=== PATIENT | male | born 1980 | race African-American/Black ===

== ENCOUNTER → 2018-07-13 | Outpatient (REF) | payer OTHER ==
[2018-07-13 13:13] LABS: BLOOD UREA NITROGEN 9 MG/DL (7-18); CPK CREATINE PHOSPHOKINASE 210 U/L (39-308); CREATININE FOR GFR 1.03 MG/DL (0.70-1.30); GLOMERULAR FILTRATION RATE > 60.0 (>60); RHEUMATOID FACTOR QUANT < 10.0 IU/ML (<15.0)
[2018-07-13 13:18] LABS: VITAMIN B12 LEVEL 838 PG/ML
[2018-07-14 12:00] LABS: ALBUMIN % 63.7 % (55.8-66.1); ALPHA-1-GLOBULIN % 3.3 % (2.9-4.9); ALPHA-2-GLOBULINS % 7.6 % (7.1-11.8); BETA-1-GLOBULINS % 5.9 % (4.7-7.2); BETA-2-GLOBULINS % 4.5 % (3.2-6.5)
[2018-07-14 12:01] LABS: ALBUMIN 4.46 GM/DL (3.29-5.55); ALPHA-1-GLOBULINS 0.23 GM/DL (0.17-0.41); ALPHA-2-GLOBULINS 0.53 GM/DL (0.42-0.99); BETA-1-GLOBULINS 0.41 GM/DL (0.28-0.60); BETA-2-GLOBULINS 0.32 GM/DL (0.19-0.55); GAMMA GLOBULINS 1.05 GM/DL (0.65-1.58)
[2018-07-20 10:12] LABS: ANCA-ATYPICAL <1:20 titer (Neg:<1:20); ANGIOTENSIN 1 CONVERTING ENZYM 45 U/L (14-82); ANTINUCLEAR ANTIBODIES DIRECT Negative (Negative); CERULOPLASMIN 16.1 mg/dL (16.0-31.0); COPPER PLASMA 79 ug/dL (72-166); CYTOPLASMIC NEUTROP AB ANCA-C <1:20 titer (Neg:<1:20); LEAD BLOOD ADULT 1 ug/dL (0-4); Lyme Disease IgG/IgM Antibodie <0.91 ISR (0.00-0.90); Lyme Disease IgM Ab Quantitati <0.80 index (0.00-0.79); MERCURY LEVEL 1.5 ug/L (0.0-14.9); PERINUCLEAR AB ANCA-P <1:20 titer (Neg:<1:20); VITAMIN B1 LEVEL WHOLE BLOOD 97.1 nmol/L (66.5-200.0); VITAMIN B6,PYRIDOXAL PHOSPHATE 8.8 ug/L (5.3-46.7); VITAMIN E(ALPHA TOCOPHEROL) 9.4 mg/L (5.9-19.4); VITAMIN E(GAMMA TOCOPHEROL) 0.6 mg/L (0.7-4.9)
== END ==
LOC: M LABNEURO 10:57
PROVIDERS: ATTEND Psychiatry & Neurology Neurology
DX: R53.81 Other malaise (principal)

== ENCOUNTER 2019-08-29 14:56 | Emergency (ER) | payer OTHER ==
[~2019-08-29] VITALS: Ht 165.1 cm; Wt 65.7 kg
[2019-08-29 16:02] LABS: HEMATOCRIT 49.1 % (42.0-52.0); HEMOGLOBIN 16.1 g/dl (13.5-17.5); MEAN CORPUSCULAR HEMOGLOBIN 28.9 pg (27.0-33.0); MEAN CORPUSCULAR HGB CONC 32.8 g/dl (32.0-36.5); PLATELET COUNT, AUTOMATED 221 10^3/uL (150-450); RED BLOOD COUNT 5.58 10^6/uL (4.30-6.10); WHITE BLOOD COUNT 3.9 10^3/uL (4.0-10.0)
[2019-08-29 16:51] LABS: BLOOD UREA NITROGEN 13 MG/DL (7-18); C REACTIVE PROTEIN QUANTITATIV < 0.30 MG/DL (0.00-0.30); CALCIUM LEVEL 9.3 MG/DL (8.5-10.1); CARBON DIOXIDE LEVEL 32 MEQ/L (21-32); CHLORIDE LEVEL 106 MEQ/L (98-107); CREATININE FOR GFR 1.12 MG/DL (0.70-1.30); GLOMERULAR FILTRATION RATE > 60.0 (>60); GLUCOSE, FASTING 76 MG/DL (70-100); POTASSIUM SERUM 4.6 MEQ/L (3.5-5.1); SODIUM LEVEL 142 MEQ/L (136-145)
[2019-08-29 17:00] LABS: ERYTHROCYTE SEDIMENTATION RATE 1 mm/hr (0-15)
[2019-08-29 20:15] LABS: ALBUMIN 4.4 GM/DL (3.2-5.2); ALT/SGPT 36 U/L (12-78); BILIRUBIN,DIRECT 0.2 MG/DL (0.0-0.2); BILIRUBIN,TOTAL 0.5 MG/DL (0.2-1.0); LIPASE 161 U/L (73-393); TOTAL PROTEIN 7.7 GM/DL (6.4-8.2)
[2019-08-29] MEDS ORDERED: IBUPROFEN 600 MG TAB PO ONE (20:45)
--- NOTE | 2019-08-29 21:58 | REPVR ---
PROCEDURE INFORMATION: Exam: MR Lumbar Spine Without Contrast. Exam date and time: 08/29/2019 9:23 PM Age: 39 years old Clinical indication: Weakness; Additional info: Weakness, numbness groin/buttock TECHNIQUE: Imaging protocol: Multiplanar magnetic resonance images of the lumbar spine without intravenous contrast. COMPARISON: No relevant prior studies available. FINDINGS: Vertebrae: Unremarkable. Spinal cord: Normal signal. No cord compression. L1-L2: No significant disc disease. No significant spinal canal stenosis. No neural foraminal stenosis. L2-L3: No significant disc disease. No significant spinal canal stenosis. Facet DJD causes mild foraminal stenosis L3-L4: No significant disc disease. No significant spinal canal stenosis. Facet DJD causes mild foraminal stenosis. L4-L5: No significant disc disease. No significant spinal canal stenosis. Facet DJD causes mild foraminal stenosis. L5-S1: No significant disc disease. No significant spinal canal stenosis. Facet DJD causes mild foraminal stenosis. Soft tissues: Unremarkable. IMPRESSION: 1. 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 2. No disc herniation or spinal stenosis. Electronically signed by: Blair Toure On 08/29/2019 21:58:22 PM
[2019-08-29 22:18] VITALS: BP 130/85
== END 2019-08-29 22:51 | disposition home or self-care (01) ==
LOC: M ED 14:56
DX: M51.37 Other intervertebral disc degeneration, lumbosacral region (principal)

== ENCOUNTER → 2019-10-25 | Outpatient (REF) | payer OTHER ==
[2019-10-25 13:00] LABS: PLATELET COUNT, AUTOMATED 194 10^3/uL (150-450)
[2019-10-25 13:16] LABS: INR 1.11; PROTHROMBIN TIME 14.1 SECONDS (11.8-14.0)
[2019-10-25 13:17] LABS: PARTIAL THROMBOPLASTIN TIME 33.2 SECONDS (25.0-38.4)
[2019-10-25 13:20] LABS: COLLAGEN EPINEPHRINE 186 SECONDS (74-162)
[2019-10-25 13:43] LABS: COLLAGEN ADP 130 SECONDS (56-103)
== END ==
LOC: M LABDRAW1 11:03
PROVIDERS: ATTEND Physical Medicine & Rehabilitation
DX: M51.37 Other intervertebral disc degeneration, lumbosacral region (principal)

== ENCOUNTER 2020-08-03 05:28 | Emergency (ER) | payer OTHER ==
[~2020-08-03] VITALS: Ht 167.6 cm; Wt 65.6 kg
--- OUTSIDE RECORDS SUMMARY | 2020-08-03 05:34 | CCD ---
Author Organization Unknown Address [address] [place] [address] Phone [phone] Care Team Providers Care Digital Production Operator Name Role Phone [facility] 3 [phone] Allergies Code Code System Name Reaction Severity Status Onset NKDA Medications Name Status Start Date Stop Date cyclobenzaprine Active Not available gabapentin 300 mg capsule Take 1 capsule 3 times a day by oral route. Active Not available Hydrocodone Active Not available Zanaflex 4 mg tablet Take 1 tablet 3 times a day by oral route as needed. Active Not available Notes: patient takes medication as neede d for migraines but does not recall the name. Problems None recorded. 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 [employer]: [address] [place] [address] 12/31/2019 COVID-19 RNA (SARS-CoV-2), QL, five roll refiner batch mixer-PCR, 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 [employer]: [address] [place] [address] Past Encounters 07/22/2020 Cervical Post-laminectomy Syndrome; Cervical Radiculopathy; Displacement of Cervical Intervertebral Disc without Myelopathy; Degeneration of Cervical Intervertebral Disc; Cervical Spondylosis without Myelopathy; Degeneration of Lumbar Intervertebral Disc; Degeneration of Lumbosacral Intervertebral Disc; Displacement of Lumbar Intervertebral Disc without Myelopathy; Intervertebral Disc Disorder; Spondylosis without Myelopathy; Lumbosacral Spondylosis without Myelopathy; Lumbar Radiculopathy; Hip Pain; Inflammation of Sacroiliac Joint; Myofascial Pain; Piriformis Syndrome Ayaka Isaac ROBOTIC TECHNICIAN: [id number] [facility], [place] [address], Ph. 05/05/2020 Cervical Post-laminectomy Syndrome; Cervical Radiculopathy; Displacement of Cervical Intervertebral Disc without Myelopathy; Degeneration of Cervical Intervertebral Disc; Cervical Spondylosis without Myelopathy; Degeneration of Lumbar Intervertebral Disc; Degeneration of Lumbosacral Intervertebral Disc; Displacement of Lumbar Intervertebral Disc without Myelopathy; Intervertebral Disc Disorder; Spondylosis without Myelopathy; Lumbosacral Spondylosis without Myelopathy; Lumbar Radiculopathy; Hip Pain; Inflammation of Sacroiliac Joint; Myofascial Pain; Piriformis Syndrome Ayaka Isaac NP: [id number] [facility], [place] [address], Ph. 04/16/2020 Inflammation of Sacroiliac Joint; Cervical Post-laminectomy Syndrome; Cervical Radiculopathy; Displacement of Cervical Intervertebral Disc without Myelopathy; Degeneration of Cervical Intervertebral Disc; Cervical Spondylosis without Myelopathy; Degeneration of Lumbar Intervertebral Disc; Degeneration of Lumbosacral Intervertebral Disc; Displacement of Lumbar Intervertebral Disc without Myelopathy; Intervertebral Disc Disorder; Spondylosis without Myelopathy; Lumbosacral Spondylosis without Myelopathy; Lumbar Radiculopathy; Hip Pain Boo Escalante MD: [id number] [facility], [facility] [place] [address], Ph. 04/09/2020 Cervical Post-laminectomy Syndrome; Cervical Radiculopathy; Displacement of Cervical Intervertebral Disc without Myelopathy; Degeneration of Cervical Intervertebral Disc; Cervical Spondylosis without Myelopathy; Degeneration of Lumbar Intervertebral Disc; Degeneration of Lumbosacral Intervertebral Disc; Displacement of Lumbar Intervertebral Disc without Myelopathy; Intervertebral Disc Disorder; Spondylosis without Myelopathy; Lumbosacral Spondylosis without Myelopathy; Lumbar Radiculopathy; Hip Pain; Inflammation of Sacroiliac Joint Ayaka Isaac, ROBOTIC TECHNICIAN: [id number] [facility], [facility] [place] [address], Ph. 03/12/2020 Inflammation of Sacroiliac Joint; Cervical Post-laminectomy Syndrome; Cervical Radiculopathy; Displacement of Cervical Intervertebral Disc without Myelopathy; Degeneration of Cervical Intervertebral Disc; Cervical Spondylosis without Myelopathy; Degeneration of Lumbar Intervertebral Disc; Degeneration of Lumbosacral Intervertebral Disc; Displacement of Lumbar Intervertebral Disc without Myelopathy; Intervertebral Disc Disorder; Spondylosis without Myelopathy; Lumbosacral Spondylosis without Myelopathy; Lumbar Radiculopathy; Hip Pain Boo Escalante MD: [id number] [address], [place] [address], Ph. 03/06/2020 Cervical Post-laminectomy Syndrome; Cervical Radiculopathy; Displacement of Cervical Intervertebral Disc without Myelopathy; Degeneration of Cervical Intervertebral Disc; Cervical Spondylosis without Myelopathy; Degeneration of Lumbar Intervertebral Disc; Degeneration of Lumbosacral Intervertebral Disc; Displacement of Lumbar Intervertebral Disc without Myelopathy; Intervertebral Disc Disorder; Spondylosis without Myelopathy; Lumbosacral Spondylosis without Myelopathy; Lumbar Radiculopathy; Hip Pain; Inflammation of Sacroiliac Joint Ayaka Isaac, ROBOTIC TECHNICIAN: [id number] [facility], [facility] [place] [address], Ph. 02/18/2020 Myofascial Pain; Cervical Post-laminectomy Syndrome; Cervical Radiculopathy; Displacement of Cervical Intervertebral Disc without Myelopathy; Degeneration of Cervical Intervertebral Disc; Cervical Spondylosis without Myelopathy; Degeneration of Lumbar Intervertebral Disc; Degeneration of Lumbosacral Intervertebral Disc; Displacement of Lumbar Intervertebral Disc without Myelopathy; Intervertebral Disc Disorder; Spondylosis without Myelopathy; Lumbosacral Spondylosis without Myelopathy; Lumbar Radiculopathy; Hip Pain Boo Escalante MD: [id number] [facility], [place] [address], Ph. 02/07/2020 Cervical Post-laminectomy Syndrome; Cervical Radiculopathy; Displacement of Cervical Intervertebral Disc without Myelopathy; Degeneration of Cervical Intervertebral Disc; Cervical Spondylosis without Myelopathy; Degeneration of Lumbar Intervertebral Disc; Degeneration of Lumbosacral Intervertebral Disc; Displacement of Lumbar Intervertebral Disc without Myelopathy; Intervertebral Disc Disorder; Spondylosis without Myelopathy; Lumbosacral Spondylosis without Myelopathy; Lumbar Radiculopathy; Hip Pain Ayaka Isaac, ROBOTIC TECHNICIAN: [id number] [address], Ph. 02/01/2020 Cervical Post-laminectomy Syndrome; Cervical Radiculopathy; Displacement of Cervical Intervertebral Disc without Myelopathy; Degeneration of Cervical Intervertebral Disc; Cervical Spondylosis without Myelopathy; Degeneration of Lumbar Intervertebral Disc; Degeneration of Lumbosacral Intervertebral Disc; Displacement of Lumbar Intervertebral Disc without Myelopathy; Intervertebral Disc Disorder; Spondylosis without Myelopathy; Lumbosacral Spondylosis without Myelopathy; Lumbar Radiculopathy Ayaka Isaac ROBOTIC TECHNICIAN: [id number] [address], Ph. 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 01/11/2020 Pre-surgery Testing; Viral Screening Boo Escalante MD: [id number] [address], Ph. [phone] 01/03/2020 Lumbar Radiculopathy; Degeneration of Lumbar Intervertebral Disc; Degeneration of Lumbosacral Intervertebral Disc; Displacement of Lumbar Intervertebral Disc without Myelopathy; Intervertebral Disc Disorder; Spondylosis without Myelopathy; Lumbosacral Spondylosis without Myelopathy; Cervical Post- laminectomy Syndrome; Cervical Radiculopathy; Displacement of Cervical Intervertebral Disc without Myelopathy; Degeneration of Cervical Intervertebral Disc; Cervical Spondylosis without Myelopathy; Displacement of Thoracic Intervertebral Disc without Myelopathy; Thoracic Spondylosis without Myelopathy Boo Escalante MD: [address] [address], [place] [address], Ph. 12/31/2019 Pre-surgery Testing; Viral Screening Boo Escalante MD: [address] [address], [facility] [place] [address], Ph. [phone] 12/06/2019 Lumbar Radiculopathy; Degeneration of Lumbar Intervertebral Disc; Degeneration of Lumbosacral Intervertebral Disc; Displacement of Lumbar Intervertebral Disc without Myelopathy; Intervertebral Disc Disorder; Spondylosis without Myelopathy; Lumbosacral Spondylosis without Myelopathy; Cervical Post- laminectomy Syndrome; Cervical Radiculopathy; Displacement of Cervical Intervertebral Disc without Myelopathy; Degeneration of Cervical Intervertebral Disc; Cervical Spondylosis without Myelopathy Boo Escalante MD: [address] [address], [place] [address], Ph. 12/03/2019 Pre-surgery Testing Boo Escalante MD: [id number] [address], [facility] [place] [address], Ph. 11/19/2019 Cervical Post-laminectomy Syndrome; Cervical Radiculopathy; Displacement of Cervical Intervertebral Disc without Myelopathy; Degeneration of Cervical Intervertebral Disc; Cervical Spondylosis without Myelopathy; Degeneration of Lumbar Intervertebral Disc; Degeneration of Lumbosacral Intervertebral Disc; Displacement of Lumbar Intervertebral Disc without Myelopathy; Intervertebral Disc Disorder; Spondylosis without Myelopathy; Lumbosacral Spondylosis without Myelopathy; Lumbar Radiculopathy Ayaka Isaac NP: [address] [address], [facility] [place] [address], Ph. 10/02/2019 Cervical Post-laminectomy Syndrome; Cervical Radiculopathy; Displacement of Cervical Intervertebral Disc without Myelopathy; Degeneration of Cervical Intervertebral Disc; Cervical Spondylosis without Myelopathy; Degeneration of Lumbar Intervertebral Disc; Degeneration of Lumbosacral Intervertebral Disc; Displacement of Lumbar Intervertebral Disc without Myelopathy; Intervertebral Disc Disorder; Spondylosis without Myelopathy; Lumbosacral Spondylosis without Myelopathy; Lumbar Radiculopathy Boo Escalante MD: [id number] [facility] [address], [place] [address], Ph. Social History Tobacco Smoking Status Never Smoker Vaccine List None recorded. Plan of Care Reminders Provider Appointments None recorded. Lab None recorded. Referral None recorded. Procedures None recorded. Surgeries None recorded. Imaging None recorded. Vitals 03/06/2020 01:00PM FOLLOW-UP Height Blood Pressure 5 ft 6 in 124/88 mm[Hg] 02/07/2020 01:45PM FOLLOW-UP Height Weight BMI Blood Pressure 5 ft 6 in 141 lbs 22.8 kg/m2 123/80 mm[Hg] 10/02/2019 04:00PM NEW PATIENT Height Weight BMI Blood Pressure 5 ft 6 in 141 lbs 22.8 kg/m2 120/79 mm[Hg]
--- OUTSIDE RECORDS SUMMARY | 2020-08-03 05:34 | CCD ---
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 [employer]: [address] [place] [address] 12/31/2019 COVID-19 RNA (SARS-CoV-2), QL, 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 [employer]: [address] [place] [address] 12/03/2019 COVID-19 RNA (SARS-CoV-2), QL, 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 [employer]: [address] [place] [address] Past Encounters 07/31/2020 Piriformis Syndrome; Cervical Post-laminectomy Syndrome; Cervical Radiculopathy; Displacement of Cervical Intervertebral Disc without Myelopathy; Degeneration of Cervical Intervertebral Disc; Cervical Spondylosis without Myelopathy; Degeneration of Lumbar Intervertebral Disc; Degeneration of Lumbosacral Intervertebral Disc; Displacement of Lumbar Intervertebral Disc without Myelopathy; Intervertebral Disc Disorder; Spondylosis without Myelopathy; Lumbosacral Spondylosis without Myelopathy; Lumbar Radiculopathy; Hip Pain; Inflammation of Sacroiliac Joint; Myofascial Pain Boo Escalante MD: [id number] [address], [place] [address], Ph. 07/22/2020 Cervical Post-laminectomy Syndrome; Cervical Radiculopathy; Displacement [...] Myofascial Pain; Piriformis Syndrome Ayaka Isaac NP: [id number] [address], Ph. 05/05/2020 Cervical Post-laminectomy Syndrome; Cervical Radiculopathy; [...] Myofascial Pain; Piriformis Syndrome Ayaka Isaac NP: [id number] [address], [place] [address], Ph. 04/16/2020 Inflammation of Sacroiliac Joint; Cervical Post-laminectomy Syndrome; Cervical Radiculopathy; Displacement of Cervical Intervertebral Disc without Myelopathy; Degeneration of Cervical Intervertebral Disc; Cervical Spondylosis without Myelopathy; Degeneration of Lumbar Intervertebral Disc; Degeneration of Lumbosacral Intervertebral Disc; Displacement of Lumbar Intervertebral Disc without Myelopathy; Intervertebral Disc Disorder; Spondylosis without Myelopathy; Lumbosacral Spondylosis without Myelopathy; Lumbar Radiculopathy; Hip Pain Boo Escalante MD: [address] [address], [place] [address], Ph. 04/09/2020 Cervical Post-laminectomy Syndrome; Cervical Radiculopathy; Displacement of Cervical Intervertebral Disc without Myelopathy; Degeneration of Cervical Intervertebral Disc; Cervical Spondylosis without Myelopathy; Degeneration of Lumbar Intervertebral Disc; Degeneration of Lumbosacral Intervertebral Disc; Displacement of Lumbar Intervertebral Disc without Myelopathy; Intervertebral Disc Disorder; Spondylosis without Myelopathy; Lumbosacral Spondylosis without Myelopathy; Lumbar Radiculopathy; Hip Pain; Inflammation of Sacroiliac Joint Ayaka Isaac MID LEVEL JAVA DEVELOPER: [id number] [address], Ph. 03/12/2020 Inflammation of Sacroiliac Joint; Cervical Post-laminectomy Syndrome; Cervical Radiculopathy; Displacement of Cervical Intervertebral Disc without Myelopathy; Degeneration of Cervical Intervertebral Disc; Cervical Spondylosis without Myelopathy; Degeneration of Lumbar Intervertebral Disc; Degeneration of Lumbosacral Intervertebral Disc; Displacement of Lumbar Intervertebral Disc without Myelopathy; Intervertebral Disc Disorder; Spondylosis without Myelopathy; Lumbosacral Spondylosis without Myelopathy; Lumbar Radiculopathy; Hip Pain Boo Escalante MD: [id number] [address], [facility] [place] [address], Ph. 03/06/2020 Cervical Post-laminectomy Syndrome; Cervical Radiculopathy; Displacement of Cervical Intervertebral Disc without Myelopathy; Degeneration of Cervical Intervertebral Disc; Cervical Spondylosis without Myelopathy; Degeneration of Lumbar Intervertebral Disc; Degeneration of Lumbosacral Intervertebral Disc; Displacement of Lumbar Intervertebral Disc without Myelopathy; Intervertebral Disc Disorder; Spondylosis without Myelopathy; Lumbosacral Spondylosis without Myelopathy; Lumbar Radiculopathy; Hip Pain; Inflammation of Sacroiliac Joint Ayaka Isaac MID LEVEL JAVA DEVELOPER: [id number] [address], Ph. 02/18/2020 Myofascial Pain; Cervical Post-laminectomy Syndrome; Cervical Radiculopathy; Displacement of Cervical Intervertebral Disc without Myelopathy; Degeneration of Cervical Intervertebral Disc; Cervical Spondylosis without Myelopathy; Degeneration of Lumbar Intervertebral Disc; Degeneration of Lumbosacral Intervertebral Disc; Displacement of Lumbar Intervertebral Disc without Myelopathy; Intervertebral Disc Disorder; Spondylosis without Myelopathy; Lumbosacral Spondylosis without Myelopathy; Lumbar Radiculopathy; Hip Pain Boo Escalante MD: [address] [address], [place] [address], Ph. 02/07/2020 Cervical Post-laminectomy Syndrome; Cervical Radiculopathy; Displacement of Cervical Intervertebral Disc without Myelopathy; Degeneration of Cervical Intervertebral Disc; Cervical Spondylosis without Myelopathy; Degeneration of Lumbar Intervertebral Disc; Degeneration of Lumbosacral Intervertebral Disc; Displacement of Lumbar Intervertebral Disc without Myelopathy; Intervertebral Disc Disorder; Spondylosis without Myelopathy; Lumbosacral Spondylosis without Myelopathy; Lumbar Radiculopathy; Hip Pain Ayaka Isaac NP: [id number] [address], [place] [address], Ph. 02/01/2020 Cervical Post-laminectomy Syndrome; Cervical Radiculopathy; Displacement of Cervical Intervertebral Disc without Myelopathy; Degeneration of Cervical Intervertebral Disc; Cervical Spondylosis without Myelopathy; Degeneration of Lumbar Intervertebral Disc; Degeneration of Lumbosacral Intervertebral Disc; Displacement of Lumbar Intervertebral Disc without Myelopathy; Intervertebral Disc Disorder; Spondylosis without Myelopathy; Lumbosacral Spondylosis without Myelopathy; Lumbar Radiculopathy Ayaka Isaac NP: [address] [address], [place] [address], Ph. 01/16/2020 Lumbar Radiculopathy; Degeneration of Lumbar [...] Thoracic Spondylosis without Myelopathy Boo Escalante MD: [address] [facility], [place] [address], Ph. 01/11/2020 Pre-surgery Testing; Viral Screening Boo Escalante MD: [address] [facility], [facility] [place] [address], Ph. [phone] 01/03/2020 Lumbar Radiculopathy; Degeneration of Lumbar Intervertebral [...] Thoracic Spondylosis without Myelopathy Boo Escalante MD: [address] [address], [place] [address], Ph. 12/31/2019 Pre-surgery Testing; Viral Screening Boo Escalante MD: [address] [address], [facility] [place] [address], Ph. [phone] 12/06/2019 Lumbar Radiculopathy; Degeneration of Lumbar Intervertebral Disc; Degeneration of Lumbosacral Intervertebral Disc; Displacement of Lumbar Intervertebral Disc without Myelopathy; Intervertebral Disc Disorder; Spondylosis without Myelopathy; Lumbosacral Spondylosis without Myelopathy; Cervical Post- laminectomy Syndrome; Cervical Radiculopathy; Displacement of Cervical Intervertebral Disc without Myelopathy; Degeneration of Cervical Intervertebral Disc; Cervical Spondylosis without Myelopathy Boo Escalante MD: [address] [facility], [facility] [place] [address], Ph. 12/03/2019 Pre-surgery Testing Boo Escalante MD: [address] [address], [facility] [place] [address], Ph. 11/19/2019 Cervical Post-laminectomy Syndrome; Cervical Radiculopathy; Displacement of Cervical Intervertebral Disc without Myelopathy; Degeneration of Cervical Intervertebral Disc; Cervical Spondylosis without Myelopathy; Degeneration of Lumbar Intervertebral Disc; Degeneration of Lumbosacral Intervertebral Disc; Displacement of Lumbar Intervertebral Disc without Myelopathy; Intervertebral Disc Disorder; Spondylosis without Myelopathy; Lumbosacral Spondylosis without Myelopathy; Lumbar Radiculopathy Ayaka Isaac NP: [id number] [facility], [facility] [place] [address], Ph. 10/02/2019 Cervical Post-laminectomy Syndrome; Cervical Radiculopathy; Displacement of Cervical Intervertebral Disc without Myelopathy; Degeneration of Cervical Intervertebral Disc; Cervical Spondylosis without Myelopathy; Degeneration of Lumbar Intervertebral Disc; Degeneration of Lumbosacral Intervertebral Disc; Displacement of Lumbar Intervertebral Disc without Myelopathy; Intervertebral Disc Disorder; Spondylosis without Myelopathy; Lumbosacral Spondylosis without Myelopathy; Lumbar Radiculopathy Boo Escalante MD: [address] [facility], [facility] [place] [address], Ph. Social History Tobacco Smoking Status Never [...]
--- OUTSIDE RECORDS SUMMARY | 2020-08-03 05:34 | CCD ---
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 Name Role Phone [facility] 3 [phone] Allergies Code Code System Name Reaction [...] Performed by 12/18/2019 Neck Surgery Information not av lable Neck Surgery Notes: 2016 at [place] Information not available Shoulder Surgery Notes: 2012 at [place] Information not available 02/07/2020 MRI, Pelvis, W/o Contrast [facility] [address] [place] [address] (Work Place) Results Lab Results Date Name Specimen Result Interpretation Description Value Range Status Address 01/11/2020 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 [employer]: [address] [place] [address] Past Encounters 05/05/2020 Cervical Post-laminectomy Syndrome; Cervical Radiculopathy; Displacement of Cervical Intervertebral Disc without Myelopathy; Degeneration of Cervical Intervertebral Disc; Cervical Spondylosis without Myelopathy; Degeneration of Lumbar Intervertebral Disc; Degeneration of Lumbosacral Intervertebral Disc; Displacement of Lumbar Intervertebral Disc without Myelopathy; Intervertebral Disc Disorder; Spondylosis without Myelopathy; Lumbosacral Spondylosis without Myelopathy; Lumbar Radiculopathy; Hip Pain; Inflammation of Sacroiliac Joint; Myofascial Pain; Piriformis Syndrome Ayaka Moreaucheryl Marlin MANUFACTURING TEACHER: [id number] [address], [place] [address], Ph. 04/16/2020 Inflammation of Sacroiliac Joint; Cervical Post-laminectomy Syndrome; Cervical Radiculopathy; Displacement of Cervical Intervertebral Disc without Myelopathy; Degeneration of Cervical Intervertebral Disc; Cervical Spondylosis without Myelopathy; Degeneration of Lumbar Intervertebral Disc; Degeneration of Lumbosacral Intervertebral Disc; Displacement of Lumbar Intervertebral Disc without Myelopathy; Intervertebral Disc Disorder; Spondylosis without Myelopathy; Lumbosacral Spondylosis without Myelopathy; Lumbar Radiculopathy; Hip Pain Boo Escalante MD: [id number] [address], Ph. 04/09/2020 Cervical Post-laminectomy Syndrome; Cervical Radiculopathy; Displacement of Cervical Intervertebral Disc without Myelopathy; Degeneration of Cervical Intervertebral Disc; Cervical Spondylosis without Myelopathy; Degeneration of Lumbar Intervertebral Disc; Degeneration of Lumbosacral Intervertebral Disc; Displacement of Lumbar Intervertebral Disc without Myelopathy; Intervertebral Disc Disorder; Spondylosis without Myelopathy; Lumbosacral Spondylosis without Myelopathy; Lumbar Radiculopathy; Hip Pain; Inflammation of Sacroiliac Joint Ayaka Isaac MANUFACTURING TEACHER: [id number] [address], Ph. 03/12/2020 Inflammation of Sacroiliac Joint; Cervical Post-laminectomy Syndrome; Cervical Radiculopathy; Displacement of Cervical Intervertebral Disc without Myelopathy; Degeneration of Cervical Intervertebral Disc; Cervical Spondylosis without Myelopathy; Degeneration of Lumbar Intervertebral Disc; Degeneration of Lumbosacral Intervertebral Disc; Displacement of Lumbar Intervertebral Disc without Myelopathy; Intervertebral Disc Disorder; Spondylosis without Myelopathy; Lumbosacral Spondylosis without Myelopathy; Lumbar Radiculopathy; Hip Pain Boo Escalante MD: [id number] [address], [place] [address], Ph. 03/06/2020 Cervical Post-laminectomy Syndrome; Cervical Radiculopathy; Displacement of Cervical Intervertebral Disc without Myelopathy; Degeneration of Cervical Intervertebral Disc; Cervical Spondylosis without Myelopathy; Degeneration of Lumbar Intervertebral Disc; Degeneration of Lumbosacral Intervertebral Disc; Displacement of Lumbar Intervertebral Disc without Myelopathy; Intervertebral Disc Disorder; Spondylosis without Myelopathy; Lumbosacral Spondylosis without Myelopathy; Lumbar Radiculopathy; Hip Pain; Inflammation of Sacroiliac Joint Ayaka Isaac MANUFACTURING TEACHER: [id number] [address], [place] [address], Ph. 02/18/2020 Myofascial Pain; Cervical Post-laminectomy Syndrome; Cervical Radiculopathy; Displacement of Cervical Intervertebral Disc without Myelopathy; Degeneration of Cervical Intervertebral Disc; Cervical Spondylosis without Myelopathy; Degeneration of Lumbar Intervertebral Disc; Degeneration of Lumbosacral Intervertebral Disc; Displacement of Lumbar Intervertebral Disc without Myelopathy; Intervertebral Disc Disorder; Spondylosis without Myelopathy; Lumbosacral Spondylosis without Myelopathy; Lumbar Radiculopathy; Hip Pain Boo Escalante MD: [id number] [address], [place] [address], Ph. 02/07/2020 Cervical Post-laminectomy Syndrome; Cervical Radiculopathy; Displacement of Cervical Intervertebral Disc without Myelopathy; Degeneration of Cervical Intervertebral Disc; Cervical Spondylosis without Myelopathy; Degeneration of Lumbar Intervertebral Disc; Degeneration of Lumbosacral Intervertebral Disc; Displacement of Lumbar Intervertebral Disc without Myelopathy; Intervertebral Disc Disorder; Spondylosis without Myelopathy; Lumbosacral Spondylosis without Myelopathy; Lumbar Radiculopathy; Hip Pain Ayaka Isaac MANUFACTURING TEACHER: [id number] [address], [place] [address], Ph. 02/01/2020 Cervical Post-laminectomy Syndrome; Cervical Radiculopathy; Displacement of Cervical Intervertebral Disc without Myelopathy; Degeneration of Cervical Intervertebral Disc; Cervical Spondylosis without Myelopathy; Degeneration of Lumbar Intervertebral Disc; Degeneration of Lumbosacral Intervertebral Disc; Displacement of Lumbar Intervertebral Disc without Myelopathy; Intervertebral Disc Disorder; Spondylosis without Myelopathy; Lumbosacral Spondylosis without Myelopathy; Lumbar Radiculopathy Ayaka Isaac NP: [id number] [facility] [address], [place] [address], Ph. 01/16/2020 Lumbar Radiculopathy; Degeneration of Lumbar [...] Thoracic Spondylosis without Myelopathy Boo Escalante MD: [id number] [address], [place] [address], Ph. 01/11/2020 Pre-surgery Testing; Viral Screening Boo Escalante MD: [id number] [address], [place] [address], Ph. [phone] 01/03/2020 Lumbar Radiculopathy; Degeneration of Lumbar Intervertebral [...] Thoracic Spondylosis without Myelopathy Boo Escalante MD: [id number] [address], [place] [address], Ph. 12/31/2019 Pre-surgery Testing; Viral Screening Boo Escalante MD: [id number] [address], [place] [address], Ph. [phone] 12/06/2019 Lumbar Radiculopathy; Degeneration of Lumbar Intervertebral Disc; Degeneration of Lumbosacral Intervertebral Disc; Displacement of Lumbar Intervertebral Disc without Myelopathy; Intervertebral Disc Disorder; Spondylosis without Myelopathy; Lumbosacral Spondylosis without Myelopathy; Cervical Post- laminectomy Syndrome; Cervical Radiculopathy; Displacement of Cervical Intervertebral Disc without Myelopathy; Degeneration of Cervical Intervertebral Disc; Cervical Spondylosis without Myelopathy Boo Escalante MD: [id number] [facility] [address], [place] [address], Ph. 12/03/2019 Pre-surgery Testing Boo Escalante MD: [id number] [facility] [address], [place] [address], Ph. 11/19/2019 Cervical Post-laminectomy Syndrome; Cervical Radiculopathy; Displacement of Cervical Intervertebral Disc without Myelopathy; Degeneration of Cervical Intervertebral Disc; Cervical Spondylosis without Myelopathy; Degeneration of Lumbar Intervertebral Disc; Degeneration of Lumbosacral Intervertebral Disc; Displacement of Lumbar Intervertebral Disc without Myelopathy; Intervertebral Disc Disorder; Spondylosis without Myelopathy; Lumbosacral Spondylosis without Myelopathy; Lumbar Radiculopathy Ayaka Isaac NP: [address], [facility] [address], [place] [address], Ph. 10/02/2019 Cervical Post-laminectomy Syndrome; Cervical Radiculopathy; Displacement of Cervical Intervertebral Disc without Myelopathy; Degeneration of Cervical Intervertebral Disc; Cervical Spondylosis without Myelopathy; Degeneration of Lumbar Intervertebral Disc; Degeneration of Lumbosacral Intervertebral Disc; Displacement of Lumbar Intervertebral Disc without Myelopathy; Intervertebral Disc Disorder; Spondylosis without Myelopathy; Lumbosacral Spondylosis without Myelopathy; Lumbar Radiculopathy Boo Escalante MD: [id number] [facility] [address], [place] [address], Ph. Social History Tobacco Smoking Status Never [...]
[2020-08-03] MEDS ORDERED: [UNRECOGNIZED DRUG - REMARK] (05:37)
--- OUTSIDE RECORDS SUMMARY | 2020-08-03 05:37 | CCD ---
Author Author [facility] Organization [facility] Address Unknown Phone Unavailable Care Team Providers Care Student Services Advisor Name Role Phone Tone MATA MD Unavailable Unavailable Tone MATA MD Unavailable Unavailable Tone MATA MD Unavailable Unavailable Tone MATA MD Unavailable Unavailable Tone MATA MD Unavailable Unavailable Tone MATA MD Unavailable Unavailable Tone MATA MD Unavailable Unavailable Tone MATA MD Unavailable Unavailable Tone MATA MD Unavailable Unavailable Tone MATA MD Unavailable Unavailable Tone MATA MD Unavailable Unavailable Tone MATA MD Unavailable Unavailable Tone MATA MD Unavailable Unavailable Tone MATA MD Unavailable Unavailable Tone MATA MD Unavailable Unavailable Tone MATA MD Unavailable Unavailable Tone MATA MD Unavailable Unavailable Tone MATA MD Unavailable Unavailable Tone MATA MD Unavailable Unavailable Tone MATA MD Unavailable Unavailable Tone MATA MD Unavailable Unavailable Tone MATA MD Unavailable Unavailable Tone MATA MD Unavailable Unavailable Tone MATA MD Unavailable Unavailable Tone MATA MD Unavailable Unavailable Tone MATA MD Unavailable Unavailable Tone MATA MD Unavailable Unavailable Tone MATA MD Unavailable Unavailable Tone MATA MD Unavailable Unavailable Tone MATA MD Unavailable Unavailable Tone MATA MD Unavailable Unavailable Tone MATA MD Unavailable Unavailable Tone MATA MD Unavailable Unavailable Tone MATA MD Unavailable Unavailable Tone MATA MD Unavailable Unavailable Tone MATA MD Unavailable Unavailable Tone MATA MD Unavailable Unavailable Tone MATA MD Unavailable Unavailable Tone MATA MD Unavailable Unavailable Tone MATA MD Unavailable Unavailable Tone MATA MD Unavailable Unavailable Tone MATA MD Unavailable Unavailable Tone MATA MD Unavailable Unavailable Tone MATA MD Unavailable Unavailable Tone MATA MD Unavailable Unavailable Tone MATA MD Unavailable Unavailable Tone MATA MD Unavailable Unavailable Tone MATA MD Unavailable Unavailable Tone MATA MD Unavailable Unavailable Tone MATA MD Unavailable Unavailable Tone MATA MD Unavailable Unavailable Tone MATA MD Unavailable Unavailable Tone MATA MD Unavailable Unavailable Tone MATA MD Unavailable Unavailable Tone MATA MD Unavailable Unavailable Tone MATA MD Unavailable Unavailable Tone MATA MD Unavailable Unavailable Tone MATA MD Unavailable Unavailable Tone MATA MD Unavailable Unavailable Tone MATA MD Unavailable Unavailable Tone MATA MD Unavailable Unavailable Tone MATA MD Unavailable Unavailable Tone MATA MD Unavailable Unavailable Tone MATA MD Unavailable Unavailable Tone MATA MD Unavailable Unavailable Tone MATA MD Unavailable Unavailable Tone MATA MD Unavailable Unavailable Tone MATA MD Unavailable Unavailable Tone MATA MD Unavailable Unavailable Tone MATA MD Unavailable Unavailable Tone MATA MD Unavailable Unavailable Tone MATA MD Unavailable Unavailable Tone MATA MD Unavailable Unavailable Tone MATA MD Unavailable Unavailable Tone MATA MD Unavailable Unavailable Tone MATA MD Unavailable Unavailable Tone MATA MD Unavailable Unavailable Tone MATA MD Unavailable Unavailable Tone MATA MD Unavailable Unavailable Tone MATA MD Unavailable Unavailable Tone MATA MD Unavailable Unavailable Tone MATA MD Unavailable Unavailable Tone MATA MD Unavailable Unavailable Tone MATA MD Unavailable Unavailable Tone MATA MD Unavailable Unavailable Tone MATA MD Unavailable Unavailable Tone MATA MD Unavailable Unavailable Tone MATA MD Unavailable Unavailable Tone MATA MD Unavailable Unavailable Tone MATA MD Unavailable Unavailable Tone MATA MD Unavailable Unavailable Tone MATA MD Unavailable Unavailable Tone MATA MD Unavailable Unavailable Tone MATA MD Unavailable Unavailable Tone MATA MD Unavailable Unavailable Tone MATA MD Unavailable Unavailable Tone MATA MD Unavailable Unavailable Tone MATA MD Unavailable Unavailable Tone MATA MD Unavailable Unavailable Tone MATA MD Unavailable Unavailable Tone MATA MD Unavailable Unavailable Tone MATA MD Unavailable Unavailable Tone MATA MD Unavailable Unavailable Tone MATA MD Unavailable Unavailable Tone MATA MD Unavailable Unavailable Tone MATA MD Unavailable Unavailable Tone MATA MD Unavailable Unavailable Tone MATA MD Unavailable Unavailable Tone MATA MD Unavailable Unavailable Tone MATA MD Unavailable Unavailable Tone MATA MD Unavailable Unavailable Tone MATA MD Unavailable Unavailable Tone MATA MD Unavailable Unavailable Tone MATA MD Unavailable Unavailable Tone MATA MD Unavailable Unavailable Tone MATA MD Unavailable Unavailable Tone MATA MD Unavailable Unavailable Tone MATA MD Unavailable Unavailable Tone MATA MD Unavailable Unavailable Tone MATA MD Unavailable Unavailable Tone MATA MD Unavailable Unavailable Tone MATA MD Unavailable Unavailable Tone MATA MD Unavailable Unavailable Tone MATA MD Unavailable Unavailable Tone MATA MD Unavailable Unavailable Tone MATA MD Unavailable Unavailable Tone MATA MD Unavailable Unavailable Tone MATA MD Unavailable Unavailable Tone MATA MD Unavailable Unavailable Tone MATA MD Unavailable Unavailable Tone MATA MD Unavailable Unavailable Tone MATA MD Unavailable Unavailable Tone MATA MD Unavailable Unavailable Tone MATA MD Unavailable Unavailable Tone MATA MD Unavailable Unavailable Tone MATA MD Unavailable Unavailable Tone MATA MD Unavailable Unavailable Tone MATA MD Unavailable Unavailable Tone MATA MD Unavailable Unavailable Tone MATA MD Unavailable Unavailable Tone MATA MD Unavailable Unavailable Tone MATA MD Unavailable Unavailable Tone MATA MD Unavailable Unavailable Tone MATA MD Unavailable Unavailable Tone MATA MD Unavailable Unavailable Tone MATA MD Unavailable Unavailable Tone MATA MD Unavailable Unavailable Tone MATA MD Unavailable Unavailable Tone MATA MD Unavailable Unavailable Tone MATA MD Unavailable Unavailable Tone MATA MD Unavailable Unavailable Tone MATA MD Unavailable Unavailable Tone MATA MD Unavailable Unavailable Tone MATA MD Unavailable Unavailable Tone MATA MD Unavailable Unavailable Tone MATA MD Unavailable Unavailable Tone MATA MD Unavailable Unavailable Tone MATA MD Unavailable Unavailable Tone MATA MD Unavailable Unavailable Tone MATA MD Unavailable Unavailable Tone MATA MD Unavailable Unavailable Tone MATA MD Unavailable Unavailable Tone MATA MD Unavailable Unavailable Tone MATA MD Unavailable Unavailable Tone MATA MD Unavailable Unavailable Tone MATA MD Unavailable Unavailable Tone MATA MD Unavailable Unavailable Tone MATA MD Unavailable Unavailable Tone MATA MD Unavailable Unavailable Tone MATA MD Unavailable Unavailable Tone MATA MD Unavailable Unavailable Tone MATA MD Unavailable Unavailable Tone MATA MD Unavailable Unavailable Tone MATA MD Unavailable Unavailable Tone MATA MD Unavailable Unavailable Tone MATA MD Unavailable Unavailable Tone MATA MD Unavailable Unavailable Tone MATA MD Unavailable Unavailable Tone MATA MD Unavailable Unavailable Tone MATA MD Unavailable Unavailable Tone MATA MD Unavailable Unavailable Tone MATA MD Unavailable Unavailable Tone MATA MD Unavailable Unavailable Tone MATA MD Unavailable Unavailable Tone MATA MD Unavailable Unavailable Tone MATA MD Unavailable Unavailable Tone MATA MD Unavailable Unavailable Tone MATA MD Unavailable Unavailable Tone MATA MD Unavailable Unavailable Tone MATA MD Unavailable Unavailable Tone MAAT MD Unavailable Unavailable Tone MATA MD Unavailable Unavailable HANIFIN, M RYAN PA Unavailable Unavailable HANIFIN, M YRAN PA Unavailable Unavailable HANIFIN, M RYAN PA Unavailable Unavailable HANIFIN, M RYAN PA Unavailable Unavailable HANIFIN, M RYAN PA Unavailable Unavailable HANIFIN, M RYAN PA Unavailable Unavailable HANIFIN, M RYAN PA Unavailable Unavailable HANIFIN, M RYAN PA Unavailable Unavailable HANIFIN, M RYAN PA Unavailable Unavailable HANIFIN, M RYAN PA Unavailable Unavailable HANIFIN, M RYAN PA Unavailable Unavailable HANIFIN, M RYAN PA Unavailable Unavailable HANIFIN, M RYAN PA Unavailable Unavailable HANIFIN, M RYAN PA Unavailable Unavailable HANIFIN, M RYAN PA Unavailable Unavailable HANIFIN, M RYAN PA Unavailable Unavailable HANIFIN, M RYAN PA Unavailable Unavailable HANIFIN, M RYAN PA Unavailable Unavailable HANIFIN, M RYAN PA Unavailable Unavailable HANIFIN, M RYAN PA Unavailable Unavailable HANIFIN, M RYAN PA Unavailable Unavailable HANIFIN, M RYAN PA Unavailable Unavailable HANIFIN, M RYAN PA Unavailable Unavailable HANIFIN, M RYAN PA Unavailable Unavailable HANIFIN, M RYAN PA Unavailable Unavailable HANIFIN, M RYAN PA Unavailable Unavailable HANIFIN, M RYAN PA Unavailable Unavailable HANIFIN, M RYAN PA Unavailable Unavailable HANIFIN, M RYAN PA Unavailable Unavailable HANIFIN, M RYAN PA Unavailable Unavailable HANIFIN, M RYAN PA Unavailable Unavailable HANIFIN, M RYAN PA Unavailable Unavailable HANIFIN, M RYAN PA Unavailable Unavailable HANIFIN, M RYAN PA Unavailable Unavailable HANIFIN, M RYAN PA Unavailable Unavailable HANIFIN, M RYAN PA Unavailable Unavailable HANIFIN, M RYAN PA Unavailable Unavailable HANIFIN, M RYAN PA Unavailable Unavailable HANIFIN, M RYAN PA Unavailable Unavailable HANIFIN, M RYAN PA Unavailable Unavailable HANIFIN, M RYAN PA Unavailable Unavailable HANIFIN, M RYAN PA Unavailable Unavailable HANIFIN, M RYAN PA Unavailable Unavailable HANIFIN, M RYAN PA Unavailable Unavailable HANIFIN, M RYAN PA Unavailable Unavailable HANIFIN, M RYAN PA Unavailable Unavailable HANIFIN, M RYAN PA Unavailable Unavailable HANIFIN, M RYAN PA Unavailable Unavailable HANIFIN, M RYAN PA Unavailable Unavailable HANIFIN, M RYAN PA Unavailable Unavailable HANIFIN, M RYAN PA Unavailable Unavailable Jumalon, M Ayaka BORING MACHINE OPERATOR PRODUCTION Unavailable Unavailable Jumalon, M Ayaka BORING MACHINE OPERATOR PRODUCTION Unavailable Unavailable Jumalon, M Ayaka BORING MACHINE OPERATOR PRODUCTION Unavailable Unavailable Jumalon, M Ayaak BORING MACHINE OPERATOR PRODUCTION Unavailable Unavailable Jumalon, M Ayaka BORING MACHINE OPERATOR PRODUCTION Unavailable Unavailable Jumalon, M Ayaka BORING MACHINE OPERATOR PRODUCTION Unavailable Unavailable Jumalon, M Ayaka BORING MACHINE OPERATOR PRODUCTION Unavailable Unavailable Jumalon, M Ayaka BORING MACHINE OPERATOR PRODUCTION Unavailable Unavailable Jumalon, M Ayaka BORING MACHINE OPERATOR PRODUCTION Unavailable Unavailable Jumalon, M Aykaa BORING MACHINE OPERATOR PRODUCTION Unavailable Unavailable Jumalon, M Ayaka BORING MACHINE OPERATOR PRODUCTION Unavailable Unavailable Jumalon, M Ayaka BORING MACHINE OPERATOR PRODUCTION Unavailable Unavailable Jumalon, M Ayaka BORING MACHINE OPERATOR PRODUCTION Unavailable Unavailable Jumalon, M Ayaka BORING MACHINE OPERATOR PRODUCTION Unavailable Unavailable Jumalon, M Ayaka BORING MACHINE OPERATOR PRODUCTION Unavailable Unavailable Jumalon, M Ayaka BORING MACHINE OPERATOR PRODUCTION Unavailable Unavailable Jumalon, M Ayaka BORING MACHINE OPERATOR PRODUCTION Unavailable Unavailable Jumalon, M Ayaka BORING MACHINE OPERATOR PRODUCTION Unavailable Unavailable Jumalon, M Ayaka BORING MACHINE OPERATOR PRODUCTION Unavailable Unavailable Jumalon, M Ayaka BORING MACHINE OPERATOR PRODUCTION Unavailable Unavailable Jumalon, M Ayaka BORING MACHINE OPERATOR PRODUCTION Unavailable Unavailable Jumalon, M Ayaka BORING MACHINE OPERATOR PRODUCTION Unavailable Unavailable Jumalon, M Ayaka BORING MACHINE OPERATOR PRODUCTION Unavailable Unavailable Jumalon, M Ayaka BORING MACHINE OPERATOR PRODUCTION Unavailable Unavailable Jumalon, M Ayaka BORING MACHINE OPERATOR PRODUCTION Unavailable Unavailable Jumalon, M Ayaka BORING MACHINE OPERATOR PRODUCTION Unavailable Unavailable Jumalon, M Ayaka BORING MACHINE OPERATOR PRODUCTION Unavailable Unavailable Jumalon, M Ayaka BORING MACHINE OPERATOR PRODUCTION Unavailable Unavailable Jostin FERNÁNDEZ DO Unavailable Unavailable Tone BARAJAS MD Unavailable Unavailable Tone BARAJAS MD Unavailable Unavailable Tone BARAJAS MD Unavailable Unavailable Tone BARAJAS MD Unavailable Unavailable Tone BARAJAS MD Unavailable Unavailable Tone BARAJAS MD Unavailable Unavailable Tone BARAJAS MD Unavailable Unavailable Tone BARAJAS MD Unavailable Unavailable Tone BARAJAS MD Unavailable Unavailable Tone BARAJAS MD Unavailable Unavailable Tone BARAJAS MD Unavailable Unavailable Tone BARAJAS MD Unavailable Unavailable Tone BARAJAS MD Unavailable Unavailable Tone BARAJAS MD Unavailable Unavailable Tone BARAJAS MD Unavailable Unavailable Tone BARAJAS MD Unavailable Unavailable Tone BARAJAS MD Unavailable Unavailable Tone BARAJAS MD Unavailable Unavailable Tone BARAJAS MD Unavailable Unavailable Tone BARAJAS MD Unavailable Unavailable Tone BARAJAS MD Unavailable Unavailable Tone BARAJAS MD Unavailable Unavailable Tone BARAJAS MD Unavailable Unavailable Tone BARAJAS MD Unavailable Unavailable Tone BARAJAS MD Unavailable Unavailable Tone BARAJAS MD Unavailable Unavailable Tone BARAJAS MD Unavailable Unavailable Tone BARAJAS MD Unavailable Unavailable Tone BARAJAS MD Unavailable Unavailable Tone BARAJAS MD Unavailable Unavailable Tone BARAJAS MD Unavailable Unavailable Tone BARAJAS MD Unavailable Unavailable Tone BARAJAS MD Unavailable Unavailable Tone BARAJAS MD Unavailable Unavailable Tone BARAJAS MD Unavailable Unavailable Tone BARAJAS MD Unavailable Unavailable Tone BARAJAS MD Unavailable Unavailable Tone BARAJAS MD Unavailable Unavailable Tone BARAJAS MD Unavailable Unavailable Tone BARAJAS MD Unavailable Unavailable Tone BARAJAS MD Unavailable Unavailable Tone BARAJAS MD Unavailable Unavailable Tone BARAJAS MD Unavailable Unavailable Tone BARAJAS MD Unavailable Unavailable Tone BARAJAS MD Unavailable Unavailable Tone BARAJAS MD Unavailable Unavailable Tone BARAJAS MD Unavailable Unavailable Tone BARAJAS MD Unavailable Unavailable Tone BARAJAS MD Unavailable Unavailable Tone BARAJAS MD Unavailable Unavailable Tone BARAJAS MD Unavailable Unavailable Tone BARAJAS MD Unavailable Unavailable Tone BARAJAS MD Unavailable Unavailable Tone BARAJAS MD Unavailable Unavailable Tone BARAJAS MD Unavailable Unavailable Tone BARAJAS MD Unavailable Unavailable Tone BARAJAS MD Unavailable Unavailable Tone BARAJAS MD Unavailable Unavailable Tone BARAJAS MD Unavailable Unavailable Tone BARAJAS MD Unavailable Unavailable Tone BARAJAS MD Unavailable Unavailable Tone BARAJAS MD Unavailable Unavailable Tone BARAJAS MD Unavailable Unavailable Tone BARAJAS MD Unavailable Unavailable Jerardo, Ramona Tristan MD Unavailable Unavailable Jerardo, Ramona Tristan MD Unavailable Unavailable Jerardo, Ramona Tristan MD Unavailable Unavailable Jerardo, Ramona Tristan MD Unavailable Unavailable Jerardo, Ramona Tristan MD Unavailable Unavailable Jerardo, Ramona Tristan MD Unavailable Unavailable Jerardo, Ramona Tristan MD Unavailable Unavailable Jerardo, Ramona Tristan MD Unavailable Unavailable Jerardo, Ramona Tristan MD Unavailable Unavailable Jerardo, Ramona Tristan MD Unavailable Unavailable Jerardo, Ramona Tristan MD Unavailable Unavailable Jerardo, Ramona Tristan MD Unavailable Unavailable Jerardo, Ramona Tristan MD Unavailable Unavailable Jerardo, Ramona rTistan MD Unavailable Unavailable Jerardo, Ramona Tristan MD Unavailable Unavailable Jerardo, Ramona Tristan MD Unavailable Unavailable Jerardo, Ramona Tristan MD Unavailable Unavailable Jerardo, Ramona Tristan MD Unavailable Unavailable Jerardo, Ramona Tristan MD Unavailable Unavailable Jerardo, Ramona Tristan MD Unavailable Unavailable Jerardo, A Kun MD Unavailable Unavailable Jerardo, A Kun MD Unavailable Unavailable Jerardo, A Kun MD Unavailable Unavailable Jerardo, A Kun MD Unavailable Unavailable Jerardo, A Kun MD Unavailable Unavailable Jerardo, A Kun MD Unavailable Unavailable Jerardo, A Kun MD Unavailable Unavailable Jerardo, A Kun MD Unavailable Unavailable Jerardo, A Kun MD Unavailable Unavailable Jerardo, A Kun MD Unavailable Unavailable Jerardo, A Kun MD Unavailable Unavailable Jerardo, A Kun MD Unavailable Unavailable Jerardo, A Kun MD Unavailable Unavailable Jerardo, A Kun MD Unavailable Unavailable Jerardo, A Kun MD Unavailable Unavailable Jerardo, A Kun MD Unavailable Unavailable Jerardo, A Kun MD Unavailable Unavailable Jerardo, A Kun MD Unavailable Unavailable Jerardo, A Kun MD Unavailable Unavailable Jerardo, A Kun MD Unavailable Unavailable Jerardo, A Kun MD Unavailable Unavailable Jerardo, A Kun MD Unavailable Unavailable Jerardo, A Kun MD Unavailable Unavailable Jerardo, A Kun MD Unavailable Unavailable Jerardo, A Kun MD Unavailable Unavailable Jerardo, A Kun MD Unavailable Unavailable Jerardo, A Kun MD Unavailable Unavailable Jerardo, A Kun MD Unavailable Unavailable Jerardo, A Kun MD Unavailable Unavailable Jerardo, A Kun MD Unavailable Unavailable Jerardo, A Kun MD Unavailable Unavailable Jerardo, A Kun MD Unavailable Unavailable Jerardo, A Kun MD Unavailable Unavailable Jerardo, A Kun MD Unavailable Unavailable Jerardo, A Kun MD Unavailable Unavailable Jerardo, A Kun MD Unavailable Unavailable Jerardo, A Kun MD Unavailable Unavailable Jerardo, A Kun MD Unavailable Unavailable Jerardo, A Kun MD Unavailable Unavailable Jerardo, A Kun MD Unavailable Unavailable Jerardo, A Kun MD Unavailable Unavailable Jerardo, A Kun MD Unavailable Unavailable Jerardo, A Kun MD Unavailable Unavailable Jerardo, A Kun MD Unavailable Unavailable Jerardo, A Kun MD Unavailable Unavailable Jerardo, A Kun MD Unavailable Unavailable Jerardo, A Kun MD Unavailable Unavailable Jerardo, A Kun MD Unavailable Unavailable Jerardo, A Kun MD Unavailable Unavailable Jerardo, A Kun MD Unavailable Unavailable Jerardo, A Kun MD Unavailable Unavailable GAONA, @ MARCELA Unavailable Unavailable KINGSTON, L MICHAEL Unavailable Unavailable KINGSTON, L MICHAEL Unavailable Unavailable KINGSTON, L MICHAEL Unavailable Unavailable KINGSTON, L MICHAEL Unavailable Unavailable Martinez, Jared Unavailable Unavailable Martinez, Jared Unavailable Unavailable Martinez, Jared Unavailable Unavailable Martinez, Jared Unavailable Unavailable Martinez, Jared Unavailable Unavailable Martinez, Jared Unavailable Unavailable Martinez, Jared Unavailable Unavailable Martinez, Jared Unavailable Unavailable Martinez, Jared Unavailable Unavailable Martinez, Jared Unavailable Unavailable Martinez, Jared Unavailable Unavailable Martinez, Jared Unavailable Unavailable Martinez, Jared Unavailable Unavailable Martinez, Jared Unavailable Unavailable Martinez, Jared Unavailable Unavailable Martinez, Jared Unavailable Unavailable Martinez, Jared Unavailable Unavailable Martinez, Jared Unavailable Unavailable Martinez, Jared Unavailable Unavailable Martinez, Jared Unavailable Unavailable Martinez, Jared Unavailable Unavailable Martinez, Jared Unavailable Unavailable Martinez, Jared Unavailable Unavailable Martinez, Jared Unavailable Unavailable Martinez, Jared Unavailable Unavailable Martinez, Jared Unavailable Unavailable Martinez, Jared Unavailable Unavailable Martinez, Jared Unavailable Unavailable Martinez, Jared Unavailable Unavailable Martinez, Jared Unavailable Unavailable Martinez, Jared Unavailable Unavailable Martinez, Jared Unavailable Unavailable Martinez, Jared Unavailable Unavailable Martinez, Jared Unavailable Unavailable Martinez, Jared Unavailable Unavailable Martinez, Jared Unavailable Unavailable Martinez, Jared Unavailable Unavailable Martinez, Jared Unavailable Unavailable Martinez, Jared Unavailable Unavailable Martinez, Jared Unavailable Unavailable Martinez, Jared Unavailable Unavailable Martinez, Jared Unavailable Unavailable Martinez, Jared Unavailable Unavailable Martinez, Jared Unavailable Unavailable Jerardo, A Kun FAN Unavailable Unavailable Jerardo, A Kun FAN Unavailable Unavailable Jerardo, Ramona Tristan MD Unavailable Unavailable Jerardo, Ramona Tristan MD Unavailable Unavailable Jerardo, Ramona Tristan MD Unavailable Unavailable Jerardo, Ramona Tristan MD Unavailable Unavailable Jerardo, Ramona Tristan MD Unavailable Unavailable Jerardo, Ramona Tristan MD Unavailable Unavailable Jerardo, Ramona Tristan MD Unavailable Unavailable Jerardo, Ramona Tristan MD Unavailable Unavailable Jerardo, Ramona Tristan MD Unavailable Unavailable Jerardo, Ramona Tristan MD Unavailable Unavailable Jerardo, Ramona Tristan MD Unavailable Unavailable Jerardo, Ramona Tristan MD Unavailable Unavailable Jerardo, Ramona Tristan MD Unavailable Unavailable Jerardo, Ramona Tristan MD Unavailable Unavailable Jerardo, Ramona Tristan MD Unavailable Unavailable Jerardo, Ramona Tristan MD Unavailable Unavailable Jerardo, Ramona Tristan MD Unavailable Unavailable Jerardo, Ramona Tristan MD Unavailable Unavailable Jerardo, Ramona Tristan MD Unavailable Unavailable Jerardo, A Kun FAN Unavailable Unavailable Jerardo, A Kun FAN Unavailable Unavailable Jerardo, Ramona Tristan MD Unavailable Unavailable Jerardo, Ramona Tristan MD Unavailable Unavailable Jerardo, Ramona Tristan MD Unavailable Unavailable Jerardo, Ramona Tristan MD Unavailable Unavailable Jerardo, Ramona Tristan MD Unavailable Unavailable Jerardo, Ramona Tristan MD Unavailable Unavailable Jerardo, Ramona Tristan MD Unavailable Unavailable Jerardo, Ramona Tristan MD Unavailable Unavailable Jerardo, Ramona Tristan MD Unavailable Unavailable Jerardo, Ramona Tristan MD Unavailable Unavailable Jerardo, A Kun Unavailable Unavailable Jerardo, A Kun Unavailable Unavailable Jerardo, A Kun Unavailable Unavailable Jerardo, A Kun Unavailable Unavailable Jerardo, A Kun Unavailable Unavailable Jerardo, A Kun Unavailable Unavailable Jerardo, A Kun Unavailable Unavailable Jerardo, A Kun Unavailable Unavailable Jerardo, A Kun Unavailable Unavailable Jerardo, A Kun Unavailable Unavailable Jerardo, A Kun Unavailable Unavailable Jerardo, A Knu Unavailable Unavailable Jerardo, A Kun Unavailable Unavailable Jerardo, A Kun Unavailable Unavailable Jerardo, A Kun Unavailable Unavailable Jerardo, A Kun Unavailable Unavailable Jerardo, A Kun Unavailable Unavailable Jerardo, A Kun Unavailable Unavailable Jerardo, A Kun Unavailable Unavailable Jerardo, A Kun FAN Unavailable Unavailable Jerardo, A Kun FAN Unavailable Unavailable Jerardo, A Kun Unavailable Unavailable Jerardo, A Kun Unavailable Unavailable Jerardo, A Kun FAN Unavailable Unavailable Jerardo, A Kun FAN Unavailable Unavailable Jerardo, A Kun FAN Unavailable Unavailable Jerardo, A Kun FAN Unavailable Unavailable Jerardo, A Kun FAN Unavailable Unavailable Jerardo, A Kun FAN Unavailable Unavailable Jerardo, A Kun FAN Unavailable Unavailable Jerardo, A Kun FAN Unavailable Unavailable Jerardo, A Kun FAN Unavailable Unavailable Jerardo, A Kun FAN Unavailable Unavailable Jerardo, A Kun FAN Unavailable Unavailable Jerardo, A Kun FAN Unavailable Unavailable Jerardo, A Kun FAN Unavailable Unavailable Jerardo, A Kun FAN Unavailable Unavailable Jerardo, A Kun FAN Unavailable Unavailable Donta Escalante MD Unavailable Unavailable Donta Escalante MD Unavailable Unavailable Donta Escalante MD Unavailable Unavailable Donta Escalante MD Unavailable Unavailable Donta Escalante MD Unavailable Unavailable Donta Escalante MD Unavailable Unavailable Donta Escalante MD Unavailable Unavailable Donta Escalante MD Unavailable Unavailable Donta Escalante MD Unavailable Unavailable Donta Escalante MD Unavailable Unavailable Donta Escalante MD Unavailable Unavailable Donta Escalante MD Unavailable Unavailable Donta Escalante MD Unavailable Unavailable Donta Escalante MD Unavailable Unavailable Donta Escalante MD Unavailable Unavailable BollaDonta MD Unavailable Unavailable BollaDonta MD Unavailable Unavailable Bolla, S Boo FAN Unavailable Unavailable Bolla, Donta Haddad MD Unavailable Unavailable Bolla, S Boo FAN Unavailable Unavailable Bolla, S Boo FAN Unavailable Unavailable Bolla, S Boo FAN Unavailable Unavailable Bolla, S Boo FAN Unavailable Unavailable Bolla, S Boo FAN Unavailable Unavailable Bolla, S Boo FAN Unavailable Unavailable Bolla, Donta Haddad MD Unavailable Unavailable Bolla, S Boo FAN Unavailable Unavailable Bolla, Donta Haddad MD Unavailable Unavailable Bolla, S Boo FAN Unavailable Unavailable Bolla, S Boo FAN Unavailable Unavailable Bolla, S Boo FAN Unavailable Unavailable Bolla, S Boo FAN Unavailable Unavailable Bolla, S Boo FAN Unavailable Unavailable Bolla, Donta Haddad MD Unavailable Unavailable Bolla, Donta Haddad MD Unavailable Unavailable Bolla, Donta Haddad MD Unavailable Unavailable Bolla, Donta Haddad MD Unavailable Unavailable Bolla, Donta Haddad MD Unavailable Unavailable Bolla, Donta Haddad MD Unavailable Unavailable Bolla, Donta Haddad MD Unavailable Unavailable Bolla, Donta Haddad MD Unavailable Unavailable BollaDonta MD Unavailable Unavailable Bolla, Donta Haddad MD Unavailable Unavailable BolDonta bowden MD Unavailable Unavailable Bolla, Donta Haddad MD Unavailable Unavailable Boldennise, Donta Haddad MD Unavailable Unavailable BollaDonta MD Unavailable Unavailable BolDonta bowden MD Unavailable Unavailable Tone MATA MD Unavailable Unavailable Tone MATA MD Unavailable Unavailable Tone AMTA MD Unavailable Unavailable Tone MATA MD Unavailable Unavailable Tone MATA MD Unavailable Unavailable Tone MATA MD Unavailable Unavailable Tone MATA MD Unavailable Unavailable Tone MATA MD Unavailable Unavailable Tone MATA MD Unavailable Unavailable Tone MATA MD Unavailable Unavailable Tone MATA MD Unavailable Unavailable Tone MATA MD Unavailable Unavailable Tone MATA MD Unavailable Unavailable Tone MATA MD Unavailable Unavailable Tone MATA MD Unavailable Unavailable Tone MATA MD Unavailable Unavailable Tone MATA MD Unavailable Unavailable Tone MATA MD Unavailable Unavailable Tone MATA MD Unavailable Unavailable Tone MATA MD Unavailable Unavailable Tone MATA MD Unavailable Unavailable Tone MATA MD Unavailable Unavailable Tone MATA MD Unavailable Unavailable Tone MATA MD Unavailable Unavailable Tone MATA MD Unavailable Unavailable Tone MATA MD Unavailable Unavailable Tone MATA MD Unavailable Unavailable Tone MATA MD Unavailable Unavailable Tone MATA MD Unavailable Unavailable Tone MATA MD Unavailable Unavailable Tone MATA MD Unavailable Unavailable Tone MATA MD Unavailable Unavailable Tone MATA MD Unavailable Unavailable Tone MATA MD Unavailable Unavailable Tone MATA MD Unavailable Unavailable Tone MATA MD Unavailable Unavailable Tone MATA MD Unavailable Unavailable Tone MATA MD Unavailable Unavailable Tone MATA MD Unavailable Unavailable Tone MATA MD Unavailable Unavailable Tone MATA MD Unavailable Unavailable Tone MATA MD Unavailable Unavailable Tone MATA MD Unavailable Unavailable Tone MATA MD Unavailable Unavailable Tone MATA MD Unavailable Unavailable Tone MATA MD Unavailable Unavailable Tone MATA MD Unavailable Unavailable Tone MATA MD Unavailable Unavailable Tone MATA MD Unavailable Unavailable Tone MATA MD Unavailable Unavailable Tone MATA MD Unavailable Unavailable Tone MATA MD Unavailable Unavailable Tone MATA MD Unavailable Unavailable Tone MATA MD Unavailable Unavailable Tone MATA MD Unavailable Unavailable Tone MATA MD Unavailable Unavailable Tone MATA MD Unavailable Unavailable Tone MATA MD Unavailable Unavailable Tone MATA MD Unavailable Unavailable Tone MATA MD Unavailable Unavailable Tone MATA MD Unavailable Unavailable Tone MATA MD Unavailable Unavailable Tone MATA MD Unavailable Unavailable Tone MATA MD Unavailable Unavailable Tone MATA MD Unavailable Unavailable Tone MATA MD Unavailable Unavailable Tone MATA MD Unavailable Unavailable Tone MATA MD Unavailable Unavailable Tone MATA MD Unavailable Unavailable Tone MATA MD Unavailable Unavailable Tone MATA MD Unavailable Unavailable Tone MATA MD Unavailable Unavailable Tone MATA MD Unavailable Unavailable Tone MATA MD Unavailable Unavailable ESPERANZA, J MYA MD Unavailable Unavailable ESPERANZA, J MYA MD Unavailable Unavailable ESPERANZA, J MAY MD Unavailable Unavailable ESPERANZA, J MYA MD Unavailable Unavailable ESPERANZA, J MYA MD Unavailable Unavailable ESPERANZA, J MYA MD Unavailable Unavailable ESPERANZA, J MYA MD Unavailable Unavailable ESPERANZA, J MYA MD Unavailable Unavailable ESPERANZA, J MYA MD Unavailable Unavailable ESPERANZA, J MYA MD Unavailable Unavailable ESPERANZA, J MYA MD Unavailable Unavailable ESPERANZA, J MYA MD Unavailable Unavailable ESPERANZA, J MYA MD Unavailable Unavailable ESPERANZA, J MYA MD Unavailable Unavailable ESPERANZA, J MYA MD Unavailable Unavailable ESPERANZA, J MYA MD Unavailable Unavailable ESPERANZA, J MYA MD Unavailable Unavailable ESPERANZA, J MYA MD Unavailable Unavailable ESPERANZA, J MYA MD Unavailable Unavailable ESPERANZA, J MYA MD Unavailable Unavailable ESPERANZA, J MYA MD Unavailable Unavailable ESPERANZA, J MYA MD Unavailable Unavailable Re-disclosure Warning The records that you are about to access may contain information from federally-assisted alcohol or drug abuse programs. If such information is present, then the following federally mandated warning applies: This information has been disclosed to you from records protected by federal confidentiality rules (42 CFR part 2). The federal rules prohibit you from making any further disclosure of this information unless further disclosure is expressly permitted by the written consent of the person to whom it pertains or as otherwise permitted by 42 CFR part 2. A general authorization for the release of medical or other information is NOT sufficient for this purpose. The Federal rules restrict any use of the information to criminally investigate or prosecute any alcohol or drug abuse patient.The records that you are about to access may contain highly sensitive health information, the redisclosure of which is protected by Article 27-F of the [facility] Public Health law. If you continue you may have access to information: Regarding HIV / AIDS; Provided by facilities licensed or operated by the [facility] Office of Mental Health; or Provided by the [facility] Office for People With Developmental Disabilities. If such information is present, then the following [facility] mandated warning applies: This information has been disclosed to you from confidential records which are protected by state law. State law prohibits you from making any further disclosure of this information without the specific written consent of the person to whom it pertains, or as otherwise permitted by law. Any unauthorized further disclosure in violation of state law may result in a fine or prison sentence or both. A general authorization for the release of medical or other information is NOT sufficient authorization for further disc losure. Encounters Encounter Providers Location Date Indications Data Source(s ) Boo Escalante MD: [address], [address] [place], [place] [address], Ph. Attender: Boo Escalante MD [place] - [facility] 07/31/2020 12:00:00 AM EST [facility] ([facility]) Ayaka Isaac, NURSE CONSULTANT: [address], [facility] [place] [address], Ph. Attender: Ayaka Isaac [facility] 07/22/2020 12:00:00 AM EST [place] ([facility]) Ayaka Isaac, NURSE CONSULTANT: [address], [place] [address], Ph. Attender: Ayaka Isaac [facility] 07/22/2020 12:00:00 AM EST [place] ([facility]) Outpatient Attender: Kun ALEMANeferrer: Kun Gupta MD 06/23/2020 08:51:32 AM EST [facility] Recurring Patient Attender: RYAN Ernandez: YMA CUEVAS MD 06/23/2020 08:22:01 AM EST [facility] Recurring Patient Attender: RYAN Ernandez: MYA CUEVAS MD 05/13/2020 02:51:41 PM EDT [facility] Recurring Patient Attender: RYAN Ernandez: MYA CUEVAS MD 05/13/2020 02:37:14 PM EDT [facility] Recurring Patient Attender: RYAN Ernandez: MYA CUEVAS MD 05/13/2020 02:31:30 PM EDT [facility] Ayaka Isaac, NURSE CONSULTANT: [address], [address], [place] [address], Ph. Attender: Ayaka Isaac [facility] - [facility] 05/05/2020 12:00:00 AM EDT [place] ([facility]) Ayaka Isaac, NURSE CONSULTANT: [address], [address], [place] [address], Ph. Attender: Ayaka Isaac [facility] - [facility] 05/05/2020 12:00:00 AM EDT [place] ([facility]) Ayaka Isaac, NURSE CONSULTANT: [address], [place] [address], Ph. Attender: Ayaka Isaac [facility] - [facility] 05/05/2020 12:00:00 AM EDT [place] [place] ([facility]) Boo Escalante MD: [address], [place] [address], Ph. Attender: Boo BRODERICK - [facility] 04/16/2020 12:00:00 AM EDT [place] ([facility]) Boo Escalante MD: [address], [address], [place] [address], Ph. Attender: Boo BRODERICK - [facility] 04/16/2020 12:00:00 AM EDT [place] ([facility]) Boo Escalante MD: [address], [place] [address], Ph. Attender: Boo BRODERICK - [facility] 04/16/2020 12:00:00 AM EDT [place] ([facility]) Boo Escalante MD: [address], [place] [address], Ph. Attender: Boo Escalante MD [place] - [facility] 04/16/2020 12:00:00 AM EDT [place] ([facility]) Ayaka Nick Marlin, NURSE CONSULTANT: [address], [address], [place] [address], Ph. Attender: Ayakatena Isaac [facility] - [facility] 04/09/2020 12:00:00 AM EDT [place] ([facility]) Ayaka Manzanemayuri Isaac, NURSE CONSULTANT: [address], [address], [place] [address], Ph. Attender: Ayaka Isaac [facility] 04/09/2020 12:00:00 AM EDT [place] ([facility]) Ayaka Nick Macysuleiman, NURSE CONSULTANT: [address], [place] [address], Ph. Attender: Ayaka Isaca [facility] 04/09/2020 12:00:00 AM EDT [place] ([facility]) Ayaka Nick Marlin, NURSE CONSULTANT: [address], [address], [place] [address], Ph. Attender: Ayakaetna Isaac [facility] - [facility] 04/09/2020 12:00:00 AM EDT [place] ([facility]) Ayaka Isaac, NURSE CONSULTANT: [address], [address], [place] [address], Ph. Attender: Ayaka CARTER [place] - [facility] 04/09/2020 12:00:00 AM EDT [place] [place] ([facility]) Outpatient Attender: MARCELA GAONA 03/14/2020 10:10:00 AM EDT [facility] Boo Escalante MD: [address], [place] [address], Ph. Attender: Boo Escalante MD [place] - [facility] 03/12/2020 12:00:00 AM EDT [place] ([facility]) Boo Escalante MD: [address], [place] [address], Ph. Attender: Boo Escalante MD [place] [facility] 03/12/2020 12:00:00 AM EDT [place] ([facility]) Boo Escalante MD: [address], [address] [place], [place] [address], Ph. Attender: Boo BRODERICK - [facility] 03/12/2020 12:00:00 AM EDT [facility] ([facility]) Boo Escalante MD: [address], [place] [address], Ph. Attender: Boo BRODERICK - [facility] 03/12/2020 12:00:00 AM EDT [facility] ([facility]) Boo Escalante MD: [address], [place] [address], Ph. Attender: Boo BRODERICK - [facility] 03/12/2020 12:00:00 AM EDT [place] ([facility]) Boo Escalante MD: [address], [address], [place] [address], Ph. Attender: Boo Escalante MD [place] [facility] 03/12/2020 12:00:00 AM EDT [place] ([facility]) Ayaka Isaac, NURSE CONSULTANT: [address], [address], [place] [address], Ph. Attender: Ayaka Isaac [facility] - [facility] 03/06/2020 12:00:00 AM EDT [place] ([facility]) Ayaka Isaac, NURSE CONSULTANT: [address], [place] [address], Ph. Attender: Ayaka Isaac [facility] - [facility] 03/06/2020 12:00:00 AM EDT [place] ([facility]) Ayaka Isaac, NURSE CONSULTANT: [address], [address], [place] [address], Ph. Attender: Ayaka Isaac [facility] 03/06/2020 12:00:00 AM EDT [place] [place] ([facility]) Ayaka Isaac, NURSE CONSULTANT: [address], [address], [place] [address], Ph. Attender: Ayaka Isaac [facility] - [facility] 03/06/2020 12:00:00 AM EDT [place] [place] ([facility]) Ayaka Isaac, NURSE CONSULTANT: [address], [place] [address], Ph. Attender: Ayaka Isaac [facility] - [facility] 03/06/2020 12:00:00 AM EDT [place] [place] ([facility]) Ayaka Isaac, NURSE CONSULTANT: [address], [address], [place] [address], Ph. Attender: Ayaka Isaac [facility] - [facility] 03/06/2020 12:00:00 AM EDT [place] [place] ([facility]) Ayaka Isaac, NURSE CONSULTANT: [address], [address], [place] [address], Ph. Attender: Ayaka Isaac [facility] - [facility] 03/06/2020 12:00:00 AM EDT [facility]TH[facility]ail NA ([facility]) Boo Escalante MD: [address], [address], [place] [address], Ph. Attender: Boo BRODERICK - [facility] 02/18/2020 12:00:00 AM EDT [place] ([facility]) Boo Escalante MD: [address], [address], [place] [address], Ph. Attender: Boo BRODERICK - [facility] 02/18/2020 12:00:00 AM EDT [place] ([facility]) Boo Escalante MD: [address], [address], [place] [address], Ph. Attender: Boo BRODERICK - [facility] 02/18/2020 12:00:00 AM EDT [facility] ([facility]) Boo Escalante MD: [address], [address], [place] [address], Ph. Attender: Boo BRODERICK - [facility] 02/18/2020 12:00:00 AM EDT [place] ([facility]) Boo Escalante MD: [address], [address], [place] [address], Ph. Attender: Boo Escalante MD [place] - [facility] 02/18/2020 12:00:00 AM EDT [place] ([facility]) Boo Escalante MD: [address], [address], [place] [address], Ph. Attender: Boo Escalante MD [place] - [facility] 02/18/2020 12:00:00 AM EDT [place] ([facility]) Boo Escalante MD: [address], [address], [place] [address], Ph. Attender: Boo BRODERICK - [facility] 02/18/2020 12:00:00 AM EDT [facility] ([facility]) Boo Escalante MD: [address], [address], [place] [address], Ph. Attender: Boo BRODERICK - [facility] 02/18/2020 12:00:00 AM EDT [facility] ([facility]) Boo Escalante MD: [address], [address], [place] [address], Ph. Attender: Boo Escalante MD [place] - [facility] 02/18/2020 12:00:00 AM EDT [place] ([facility]) Ayaka Isaac, NURSE CONSULTANT: [address], [address], [place] [address], Ph. Attender: Ayaka Isaac [facility] - [facility] 02/07/2020 12:00:00 AM EDT [place] NA ([facility]) Ayaka Isaac, NURSE CONSULTANT: [address], [place] [address], Ph. Attender: Ayaka Isaac [facility] - [facility] 02/07/2020 12:00:00 AM EDT [place] [place] ([facility]) Ayaka Isaac, NURSE CONSULTANT: [address], [place] [address], Ph. Attender: Ayaka Isaac [facility] - [facility] 02/07/2020 12:00:00 AM EDT [place] [place] ([facility]) Ayaka Isaac, NURSE CONSULTANT: [address], [place] [address], Ph. Attender: Ayaka Isaac [facility] - [facility] 02/07/2020 12:00:00 AM EDT [place] ([facility]) Ayaka Isaac, NURSE CONSULTANT: [address], [place] [address], Ph. Attender: Ayaka Isaac [facility] - [facility] 02/07/2020 12:00:00 AM EDT [place] ([facility]) Ayaka Isaac, NURSE CONSULTANT: [address], [place] [address], Ph. Attender: Ayaka Isaac [facility] - [facility] 02/07/2020 12:00:00 AM EDT [place] ([facility]) Ayaka Nick Macyjeremiahaiden, NURSE CONSULTANT: [address], [place] [address], Ph. Attender: Ayaka Isaac [facility] 02/07/2020 12:00:00 AM EDT [place] ([facility]) Ayaka Isaac, NURSE CONSULTANT: [address], [place] [address], Ph. Attender: Ayaka Isaac [facility] 02/07/2020 12:00:00 AM EDT [place] [place] ([facility]) Ayaka Isaac, NURSE CONSULTANT: [address], [place] [place] [address], Ph. Attender: Ayaka Isaac [facility] 02/07/2020 12:00:00 AM EDT [place] [place] ([facility]) Ayaka Isaac, NURSE CONSULTANT: [address], [place] [address], Ph. Attender: Ayaka Isaac [facility] 02/07/2020 12:00:00 AM EDT [facility] [place] ([facility]) Outpatient Attender: Kun Gupta MDReferrer: MYA MORA MD 02/04/2020 11:11:09 AM EDT [facility] Ayaka Isaac, NURSE CONSULTANT: [address], [place] [address], Ph. Attender: Ayaka Isaac [facility] 02/01/2020 12:00:00 AM EDT [place] ([facility]) Ayaka Isaac, NURSE CONSULTANT: [address], [place] [address], Ph. Attender: Ayaka Isaac [facility] - [facility] 02/01/2020 12:00:00 AM EDT [place] [place] ([facility]) Ayaka Isaac, NURSE CONSULTANT: [address], [place] [address], Ph. Attender: Ayaka Isaac [facility] - [facility] 02/01/2020 12:00:00 AM EDT [place] [place] ([facility]) Ayaka Isaac, NURSE CONSULTANT: [address], [place] [address], Ph. Attender: Ayaka Isaac [facility] - [facility] 02/01/2020 12:00:00 AM EDT [place] [place] ([facility]) Ayaka Isaac, NURSE CONSULTANT: [address], [place] [address], Ph. Attender: Ayaka Isaac [facility] - [facility] 02/01/2020 12:00:00 AM EDT [facility] [place] ([facility]) Ayaka Ericlynne Macysuleiman, NURSE CONSULTANT: [address], [place] [address], Ph. Attender: Ayaka Isaac [facility] - [facility] 02/01/2020 12:00:00 AM EDT [place] NA ([facility]) Ayaka Nick Macysuleiman, NURSE CONSULTANT: [address], [place] [address], Ph. Attender: Ayaka Dayaiden [facility] - [facility] 02/01/2020 12:00:00 AM EDT [place] [place] ([facility]) Ayaka Isaac, NURSE CONSULTANT: [address], [address], [place] [address], Ph. Attender: Ayaka Isaac [facility] - [facility] 02/01/2020 12:00:00 AM EDT [place] NA ([facility]) Ayaka Isaac, NURSE CONSULTANT: [address], [address], [place] [address], Ph. Attender: Ayaka Isaac [facility] - [facility] 02/01/2020 12:00:00 AM EDT [place] [place] ([facility]) Ayaka Isaac, NURSE CONSULTANT: [address], [address], [place] [address], Ph. Attender: Ayaka Isaac [facility] 02/01/2020 12:00:00 AM EDT [place] NA ([facility]) Ayaka Isaac, NURSE CONSULTANT: [address], [address], [place] [address], Ph. Attender: Ayaka Isaac [facility] - [facility] 02/01/2020 12:00:00 AM EDT [facility] NA ([facility]) Boo Escalante MD: [address], [address], [place] [address], Ph. Attender: Boo Escalante MD [place] - [facility] 01/16/2020 12:00:00 AM EDT [place] ([facility]) Boo Escalante MD: [address], [address], [place] [address], Ph. Attender: Boo Escalante MD [place] - [facility] 01/16/2020 12:00:00 AM EDT [facility] ([facility]) Boo Escalante MD: [address], [address], [place] [address], Ph. Attender: Boo BRODERICK - [facility] 01/16/2020 12:00:00 AM EDT [facility] ([facility]) Boo Escalante MD: [address], [address], [place] [address], Ph. Attender: Boo BRODERICK - [facility] 01/16/2020 12:00:00 AM EDT [facility] ([facility]) Boo Escalante MD: [address], [address], [place] [address], Ph. Attender: Boo BRODERICK - [facility] 01/16/2020 12:00:00 AM EDT [facility] ([facility]) Boo Escalante MD: [address], [address], [place] [address], Ph. Attender: Boo BRODERICK - [facility] 01/16/2020 12:00:00 AM EDT [facility] ([facility]) Boo Escalante MD: [address], [address], [place] [address], Ph. Attender: Boo BRODERICK - [facility] 01/16/2020 12:00:00 AM EDT [facility] ([facility]) Boo Escalante MD: [address], [address], [place] [address], Ph. Attender: Boo BRODERICK - [facility] 01/16/2020 12:00:00 AM EDT [facility] ([facility]) Boo Escalante MD: [address], [address], [place] [address], Ph. Attender: Boo BRODERICK - [facility] 01/16/2020 12:00:00 AM EDT [facility] ([facility]) Boo Escalante MD: [address], [address], [place] [address], Ph. Attender: Boo BRODERICK - [facility] 01/16/2020 12:00:00 AM EDT [facility] ([facility]) Boo Escalante MD: [address]606 [address], [address], [place] [address], Ph. Attender: Boo BRODERICK - [facility] 01/16/2020 12:00:00 AM EDT [facility] ([facility]) Boo Escalante MD: [address]001 [address], [address], [place] [address], Ph. Attender: Boo BRODERICK - [facility] 01/16/2020 12:00:00 AM EDT [facility] ([facility]) Boo Escalante MD: [address]18 [address], [address], [place] [address], Ph. [phone] Attender: Boo BRODERICK - [facility] 01/11/2020 12:00:00 AM EDT [facility] ([facility]) Boo Escalante MD: [address]192 [address], [address], [place] [address], Ph. [phone] Attender: Boo BRODERICK - [facility] 01/11/2020 12:00:00 AM EDT [facility] ([facility]) Boo Escalante MD: [address]73 [address], [address], [place] [address], Ph. [phone] Attender: Boo Escalante MD [place] - [facility] 01/11/2020 12:00:00 AM EDT [facility] ([facility]) Boo Escalante MD: [address]135 [address], [address], [place] [address], Ph. [phone] Attender: Boo Escalante MD [place] - [facility] 01/11/2020 12:00:00 AM EDT [facility] ([facility]) Boo Escalante MD: [address]365 [address], [address], [place] [address], Ph. [phone] Attender: Boo BRODERICK - [facility] 01/11/2020 12:00:00 AM EDT [facility] ([facility]) Boo Escalante MD: [address]4945 [address], [address], [place] [address], Ph. [phone] Attender: Boo BRODERICK - [facility] 01/11/2020 12:00:00 AM EDT [facility] ([facility]) Boo Escalante MD: 14651 [address], [address], [place] [address], Ph. [phone] Attender: Boo BRODERICK - [facility] 01/11/2020 12:00:00 AM EDT [facility] ([facility]) Boo Escalante MD: [address]16 [address], [address], [place] [address], Ph. [phone] Attender: Boo BRODERICK - [facility] 01/11/2020 12:00:00 AM EDT [facility] ([facility]) Boo Escalante MD: [address]174 [address], [address], [place] [address], Ph. [phone] Attender: Boo Escalante MD [place] - [facility] 01/11/2020 12:00:00 AM EDT [facility] ([facility]) Boo Escalante MD: [address]365 [address], [address], [place] [address], Ph. [phone] Attender: Boo Escalante MD [place] - [facility] 01/11/2020 12:00:00 AM EDT [facility] ([facility]) Boo Escalante MD: [address]757 [address], [address], [place] [address], Ph. [phone] Attender: Boo [place]alante MD [place] - [facility] 01/11/2020 12:00:00 AM EDT [facility] ([facility]) Boo Escalante MD: [address]109 [address], [address], [place] [address], Ph. [phone] Attender: Boo [place]ante MD [place] - [facility] 01/11/2020 12:00:00 AM EDT [facility] ([facility]) Boo Escalante MD: 74932 [address], [address], [place] [address], Ph. [phone] Attender: Boo BRODERICK - [facility] 01/11/2020 12:00:00 AM EDT [facility] ([facility]) Boo Escalante MD: 75505 [address], [address], [place] [address], Ph. Attender: Boo BRODERICK - [facility] 01/03/2020 12:00:00 AM EDT [facility] ([facility]) Boo Escalante MD: 01462 [address], [address], [place] [address], Ph. Attender: Boo [place]ante MD [place] - [facility] 01/03/2020 12:00:00 AM EDT [facility] ([facility]) Boo Escalante MD: 5[address]24 [address], [address], [place] [address], Ph. Attender: Boo BRODERICK - [facility] 01/03/2020 12:00:00 AM EDT [facility] ([facility]) Boo Escalante MD: 50643 [address], [address], [place] [address], Ph. Attender: Boo [place]ante MD [place] - [facility] 01/03/2020 12:00:00 AM EDT [facility] ([facility]) Boo Escalante MD: 25495 [address], [address], [place] [address], Ph. Attender: Boo BRODERICK - [facility] 01/03/2020 12:00:00 AM EDT [facility] ([facility]) Boo Escalante MD: 81992 [address], [address], [place] [address], Ph. Attender: Boo BRODERICK - [facility] 01/03/2020 12:00:00 AM EDT [facility] ([facility]) Boo Escalante MD: [address]69 [address], [address], [place] [address], Ph. Attender: Boo BRODERICK - [facility] 01/03/2020 12:00:00 AM EDT [facility] ([facility]) Boo Escalante MD: 37920 [address], [address], [place] [address], Ph. Attender: Boo BRODERICK - [facility] 01/03/2020 12:00:00 AM EDT [facility] ([facility]) Boo Escalante MD: 17292 [address], [address], [place] [address], Ph. Attender: Boo BRODERICK - [facility] 01/03/2020 12:00:00 AM EDT [facility] ([facility]) Boo Escalante MD: [address]800 [address], [address], [place] [address], Ph. Attender: Boo BRODERICK - [facility] 01/03/2020 12:00:00 AM EDT [facility] ([facility]) Boo Escalante MD: 48535 [address], [address], [place] [address], Ph. Attender: Boo BRODERICK - [facility] 01/03/2020 12:00:00 AM EDT [facility] ([facility]) Boo Escalante MD: [address]00 [address], [address], [place] [address], Ph. Attender: Boo BRODERICK - [facility] 01/03/2020 12:00:00 AM EDT [facility] ([facility]) Boo Escalante MD: 13087 [address], [address], [place] [address], Ph. Attender: Boo BRODERICK - [facility] 01/03/2020 12:00:00 AM EDT [facility] ([facility]) Boo Escalante MD: [address]4540 [address], [address], [place] [address], Ph. Attender: Boo [place]alante MD [place] - [facility] 01/03/2020 12:00:00 AM EDT [facility] ([facility]) Outpatient Attender: RYAN Ernandez: MYA RODRIGUES MD 01/02/2020 11:24:42 AM EDT [facility] Rec[facility] Patient Attender: RYAN Sagastumeer: MYA CUEVAS MD 01/01/2020 07:58:22 AM EDT [facility] Boo Escalante MD: [address]22 [address], [address], [place] [address], Ph. [phone] Attender: Boo BRODERICK - [facility] 12/31/2019 12:00:00 AM EDT [facility] ([facility]) Boo Escalante MD: [address]97 [address], [address], [place] [address], Ph. [phone] Attender: Boo BRODERICK - [facility] 12/31/2019 12:00:00 AM EDT [facility] ([facility]) Boo Escalante MD: [address]0553 [address], [address], [place] [address], Ph. [phone] Attender: Boo [place]ante MD [place] - [facility] 12/31/2019 12:00:00 AM EDT [facility] ([facility]) oBo Escalante MD: 06615 [address], [address], [place] [address], Ph. [phone] Attender: Boo BRODERICK - [facility] 12/31/2019 12:00:00 AM EDT [facility] ([facility]) Boo Escalante MD: [address]118 [address], [address], [place] [address], Ph. [phone] Attender: Boo BRODERICK - [facility] 12/31/2019 12:00:00 AM EDT [facility] ([facility]) Boo Escalante MD: [address]609 [address], [address], [place] [address], Ph. [phone] Attender: Boo Escalante MD [place] - [facility] - [facility] 12/31/2019 12:00:00 AM EDT [facility] ([facility]) Boo Escalante MD: [address]2923 [address], [address], [place] [address], Ph. [phone] Attender: Boo [place]ante MD [place] - [facility] 12/31/2019 12:00:00 AM EDT [facility] ([facility]) Boo Escalante MD: 62250 [address], [address], [place] [address], Ph. [phone] Attender: Boo [place]ante MD [place] - [facility] 12/31/2019 12:00:00 AM EDT [facility] ([facility]) Boo Escalante MD: 33703 [address], [address], [place] [address], Ph. [phone] Attender: Boo Escalante MD [place] - [facility] - [facility] 12/31/2019 12:00:00 AM EDT [facility] ([facility]) Boo Escalante MD: 40690 [address], [address], [place] [address], Ph. [phone] Attender: Boo [place]ante MD [place] - [facility] 12/31/2019 12:00:00 AM EDT [facility] ([facility]) Boo Escalante MD: 07114 [address], [address], [place] [address], Ph. [phone] Attender: Boo [place]ante MD [place] - [facility] 12/31/2019 12:00:00 AM EDT [facility] ([facility]) Boo Escalante MD: 84626 [address], [address], [place] [address], Ph. [phone] Attender: Boo Escalante MD [place] - [facility] 12/31/2019 12:00:00 AM EDT [facility] ([facility]) Boo Escalante MD: 26684 [address], [address], [place] [address], Ph. [phone] Attender: Boo [place]alante MD [place] - [facility] 12/31/2019 12:00:00 AM EDT [facility] ([facility]) Boo Escalante MD: 39960 [address], [address], [place] [address], Ph. [phone] Attender: Boo [place]ante MD [place] - [facility] 12/31/2019 12:00:00 AM EDT [facility] ([facility]) Boo Escalante MD: 68246 [address], [address], [place] [address], Ph. [phone] Attender: Boo Escalante MD [place] - [facility] 12/31/2019 12:00:00 AM EDT [facility] ([facility]) [place] [facility] facility) Attender: Chidi Gupta MDAdmitter: Kun Gupta MD 12/18/2019 05:12:00 AM EDT - 12/18/2019 05:29:00 PM EDT [facility] Outpatient Attender: Kun Gupta MDAdmitter: Kun Gupta MD 12/18/2019 05:12:00 AM EDT - 12/18/2019 05:29:00 PM EDT FAILED ORTHOPEDIC IMPLANT, INITIAL ENCOUNTER CERVICAL MYELOP [facility] FAILED ORTHOPEDIC IMPLANT, INITIAL ENCOU NTER CERVICAL MYELOP Patient discharged. Outpatient Attender: Kun Gupta MD 12/18/2019 05:12:00 A M EDT [facility] Outpatient Attender: RYAN VALLES PAReferrer: RYAN NAIK 12/13/2019 11:05:09 AM EDT [facility] Recurring Patient Attender: RYAN VALLES PAReferrer: MYA CUEVAS MD 12/13/2019 10:35:52 AM EDT [facility] Outpatient Attender: SHONDA FERNÁNDEZ DO 12/07/2019 11:12:28 AM EDT [facility] [place] [facility] Outpatient Attender: Kun Gupta MD 12/07/2019 10:0 8:00 AM EDT C6-7 ANTERIOR CERVICAL DISCECTOMY AND FUSION, PROSTHETIC CAG [facility] C6-7 ANTERIOR CERVICAL DISCECTOMY AND FU RYDER, PROSTHETIC CAG Boo Escalante MD: 54201 [address], [address], [place], [place] [address], Ph. Attender: Boo BRODERICK - [facility] 12/06/2019 12:00:00 AM EDT [facility] ([facility]) Boo Escalante MD: [address]12 [address], [place] [address], Ph. Attender: Boo BRODERICK - [facility] 12/06/2019 12:00:00 AM EDT [facility] ([facility]) Boo Escalante MD: 08927 [address], [place] [address], Ph. Attender: Boo BRODERICK - [facility] 12/06/2019 12:00:00 AM EDT [facility] ([facility]) Boo Escalante MD: 71450 [address], [address], [place], [place] [address], Ph. Attender: Boo BRODERICK - [facility] 12/06/2019 12:00:00 AM EDT [facility] ([facility]) Boo Escalante MD: 48979 [address], [address], [place] [address], Ph. Attender: Boo BRODERICK - [facility] 12/06/2019 12:00:00 AM EDT [facility] ([facility]) Boo Escalante MD: 19157 [address], [address], [place] [address], Ph. Attender: Boo BRODERICK - [facility] 12/06/2019 12:00:00 AM EDT [facility] ([facility]) Boo Escalante MD: 44348 [address], [address], [place] [address], Ph. Attender: Boo BRODERICK - [facility] 12/06/2019 12:00:00 AM EDT [facility] ([facility]) Boo Escalante MD: 46837 [address], [address], [place] [address], Ph. Attender: Boo BRODERICK - [facility] 12/06/2019 12:00:00 AM EDT [facility] ([facility]) Boo Escalante MD: 58520 [address], [address], [place] [address], Ph. Attender: Boo BRODERICK - [facility] 12/06/2019 12:00:00 AM EDT [facility] ([facility]) Boo Escalante MD: 01107 [address], [address], [place] [address], Ph. Attender: Boo BRODERICK - [facility] 12/06/2019 12:00:00 AM EDT [facility] ([facility]) Boo Escalante MD: 59256 [address], [address], [place] [address], Ph. Attender: Boo Escalante MD [place] - [facility] 12/06/2019 12:00:00 AM EDT [facility] ([facility]) Boo Escalante MD: 97392 [address], [address], [place] [address], Ph. Attender: Boo BRODERICK - [facility] 12/06/2019 12:00:00 AM EDT [facility] ([facility]) Boo Escalante MD: 54336 [address], [address], [place] [address], Ph. Attender: Boo BRODERICK - [facility] 12/06/2019 12:00:00 AM EDT [facility] ([facility]) Boo Escalante MD: 66065 [address], [address], [place] [address], Ph. Attender: Boo BRODERICK - [facility] 12/06/2019 12:00:00 AM EDT [facility] ([facility]) Boo Escalante MD: 61849 [address], [address], [place] [address], Ph. Attender: Boo BRODERICK - [facility] 12/06/2019 12:00:00 AM EDT [facility] ([facility]) Boo Escalante MD: 12121 [address], [address], [place] [address], Ph. Attender: Boo BRODERICK - [facility] 12/06/2019 12:00:00 AM EDT [facility] ([facility]) Boo Escalante MD: 93223 [address], [address], [place] [address], Ph. Attender: Boo BRODERICK - [facility] 12/03/2019 12:00:00 AM EDT [facility] ([facility]) Boo Escalante MD: 19357 [address], [address], [place] [address], Ph. Attender: Boo BRODERICK - [facility] 12/03/2019 12:00:00 AM EDT [facility] ([facility]) Boo Escalante MD: 48051 [address], [address], [place] [address], Ph. Attender: Boo BRODERICK - [facility] 12/03/2019 12:00:00 AM EDT [facility] ([facility]) Boo Escalante MD: 19676 [address], [address], [place] [address], Ph. Attender: Boo BRODERICK - [facility] 12/03/2019 12:00:00 AM EDT [facility] ([facility]) Boo Escalante MD: 20506 [address], [address], [place] [address], Ph. Attender: Boo BRODERICK - [facility] 12/03/2019 12:00:00 AM EDT [facility] ([facility]) Boo Escalante MD: 15804 [address], [address], [place] [address], Ph. Attender: Boo BRODERICK - [facility] 12/03/2019 12:00:00 AM EDT [facility] ([facility]) Boo Escalante MD: 57386 [address], [address], [place] [address], Ph. Attender: Boo BRODERICK - [facility] 12/03/2019 12:00:00 AM EDT [facility] ([facility]) Boo Escalante MD: 01349 [address], [address], [place] [address], Ph. Attender: Boo BRODERICK - [facility] 12/03/2019 12:00:00 AM EDT [facility] ([facility]) Boo Escalante MD: 21844 [address], [address], [place] [address], Ph. Attender: Boo BRODERICK - [facility] 12/03/2019 12:00:00 AM EDT [facility] ([facility]) Boo Escalante MD: 45058 [address], [address], [place] [address], Ph. Attender: Boo BRODERICK - [facility] 12/03/2019 12:00:00 AM EDT [facility] ([facility]) Boo Escalante MD: 65236 [address], [address], [place] [address], Ph. Attender: Boo BRODERICK - [facility] 12/03/2019 12:00:00 AM EDT [facility] ([facility]) Boo Escalante MD: 11011 [address], [address], [place] [address], Ph. Attender: Boo BRODERICK - [facility] 12/03/2019 12:00:00 AM EDT [facility] ([facility]) Boo Escalante MD: 97576 [address], [address], [place] [address], Ph. Attender: Boo BRODERICK - [facility] 12/03/2019 12:00:00 AM EDT [facility] ([facility]) Boo Escalante MD: 88593 [address], [address], [place] [address], Ph. Attender: Boo Escalante MD [place] - [facility] 12/03/2019 12:00:00 AM EDT [facility] ([facility]) Boo Escalante MD: 06742 [address], [address], [place] [address], Ph. Attender: Boo Escalante MD [place] - [facility] 12/03/2019 12:00:00 AM EDT [facility] ([facility]) Boo Escalante MD: 77339 [address], [address], [place] [address], Ph. Attender: Boo Escalante MD [place] - [facility] 12/03/2019 12:00:00 AM EDT [facility] ([facility]) Boo Escalante MD: 55530 [address], [address], [place] [address], Ph. Attender: Boo Escalante MD [place] - [facility] 12/03/2019 12:00:00 AM EDT [facility] ([facility]) Ayaka Isaac, NURSE CONSULTANT: [address], [address], [place] [address], Ph. Attender: Ayaka CARTER [place] - [facility] 11/19/2019 12:00:00 AM EDT ATHGail HERR ([facility]) Ayaka Isaac, NURSE CONSULTANT: [address], [address], [place] [address], Ph. Attender: Ayaka Isaac [facility] - [facility] 11/19/2019 12:00:00 AM EDT ATHE NA ([facility]) Ayaka Isaac, NURSE CONSULTANT: [address], [facility] [place] [address], Ph. Attender: Ayaka Isaac [facility] - [facility] 11/19/2019 12:00:00 AM EDT [facility]HE [facility] ([facility]) Ayaka Isaac, NURSE CONSULTANT: [address], [place] [address], Ph. Attender: Ayaka Isaac [facility] - [facility] 11/19/2019 12:00:00 AM EDT [facility]HE [facility] ([facility]) Ayaka Isaac, NURSE CONSULTANT: [address], [place] [address], Ph. Attender: Ayaka Isaac [facility] 11/19/2019 12:00:00 AM EDT ATHE NA ([facility]) Ayaka Isaac, NURSE CONSULTANT: [address], [facility] [place] [address], Ph. Attender: Ayaka Isaac [facility] - [facility] 11/19/2019 12:00:00 AM EDT ATHE NA ([facility]) Ayaka Isaac, NURSE CONSULTANT: [address], [facility] [place] [address], Ph. Attender: Ayaka Isaac [facility] - [facility] 11/19/2019 12:00:00 AM EDT [facility] ([facility]) Ayaka Nick Marlin, NURSE CONSULTANT: [address], [address], [place] [address], Ph. Attender: Ayaka Isaac [facility] - [facility] 11/19/2019 12:00:00 AM EDT ATHE NA ([facility]) Ayaka Isaac, NURSE CONSULTANT: [address], [address], [place] [address], Ph. Attender: Ayaka Isaac [facility] - [facility] 11/19/2019 12:00:00 AM EDT ATHE NA ([facility]) Ayaka Isaac, NURSE CONSULTANT: [address], [place] [address], Ph. Attender: Ayaka Isaac [facility] - [facility] 11/19/2019 12:00:00 AM EDT ATHE NA ([facility]) Ayaka Isaac, NURSE CONSULTANT: [address], [address], [place] [address], Ph. Attender: Ayaka Isaac [facility] - [facility] 11/19/2019 12:00:00 AM EDT ATHE NA ([facility]) Ayaka Isaac, NURSE CONSULTANT: [address], [address], [place] [address], Ph. Attender: Ayaka Isaac [facility] - [facility] 11/19/2019 12:00:00 AM EDT ATHE NA ([facility]) Ayaka Isaac, NURSE CONSULTANT: [address], [address], [place] [address], Ph. Attender: Ayaka Macyjeremiahaiden [facility] - [facility] 11/19/2019 12:00:00 AM EDT [facility]HE NA ([facility]) Ayaka Isaac, NURSE CONSULTANT: [address], [place] [address], Ph. Attender: Ayaka Isaac [facility] - [facility] 11/19/2019 12:00:00 AM EDT ATHE NA ([facility]) Ayaka Isaac, NURSE CONSULTANT: [address], [place] [address], Ph. Attender: Ayaka Isaac [facility] 11/19/2019 12:00:00 AM EDT ATHE NA ([facility]) Ayaka Isaac, NURSE CONSULTANT: [address], [place] [address], Ph. Attender: Ayaka Isaac [facility] - [facility] 11/19/2019 12:00:00 AM EDT [facility] NA ([facility]) Ayaka Isaac, NURSE CONSULTANT: [address], [place] [address], Ph. Attender: Ayaka Isaac [facility] 11/19/2019 12:00:00 AM EDT ATHE NA ([facility]) Ayaka Isaac, NURSE CONSULTANT: [address], [place] [address], Ph. Attender: Ayaka Isaac [facility] 11/19/2019 12:00:00 AM EDT ATHE NA ([facility]) [facility] [address] [place] [address] 11/14/2019 12:00:00 AM EDT eCW1 ([facility]) Outpatient Attender: Jared Martinez [facility] 10/25/2019 10:00:0 0 AM EDT MEDENT ([facility]) Boo Escalante MD: [address], [address], [place] [address], Ph. Attender: Boo BRODERICK - [facility] 10/02/2019 12:00:00 AM EDT FROILAN ([facility]) Boo Escalante MD: [address], [address], [place] [address], Ph. Attender: Boo BRODERICK - [facility] 10/02/2019 12:00:00 AM EDT FROILAN ([facility]) Boo Escalante MD: [address], [address], [place] [address], Ph. Attender: Boo BRODERICK - [facility] 10/02/2019 12:00:00 AM EDT FROILAN ([facility]) Boo Escalante MD: [address], [address], [place] [address], Ph. Attender: Boo BRODERICK - [facility] 10/02/2019 12:00:00 AM EDT FROILAN ([facility]) Boo Escalante MD: [address], [address], [place] [address], Ph. Attender: Boo BRODERICK - [facility] 10/02/2019 12:00:00 AM EDT FROILAN ([facility]) Boo Escaalnte MD: [address], [address], [place] [address], Ph. Attender: Boo BRODERICK - [facility] 10/02/2019 12:00:00 AM EDT FROILAN ([facility]) Boo Escalante MD: [address], [address], [place] [address], Ph. Attender: Boo BRODERICK - [facility] 10/02/2019 12:00:00 AM EDT FROILAN ([facility]) Boo Escalante MD: [address], [address], [place] [address], Ph. Attender: Boo BRODERICK - [facility] 10/02/2019 12:00:00 AM EDT FROILAN ([facility]) Boo Escalante MD: [address], [address], [place] [address], Ph. Attender: Boo BRODERICK - [facility] 10/02/2019 12:00:00 AM EDT FROILAN ([facility]) Boo Escalante MD: [address], [address], [place] [address], Ph. Attender: Boo BRODERICK - [facility] 10/02/2019 12:00:00 AM EDT FROILAN ([facility]) Boo Escalante MD: [address], [address], [place] [address], Ph. Attender: Boo BRODERICK - [facility] 10/02/2019 12:00:00 AM EDT FROILAN ([facility]) Boo Escalante MD: [address], [address], [place] [address], Ph. Attender: Boo Escalante MD [place] - [facility] 10/02/2019 12:00:00 AM EDT FROILAN ([facility]) Boo Escalante MD: [address], [address], [place] [address], Ph. Attender: Boo BRODERICK - [facility] 10/02/2019 12:00:00 AM EDT FROILAN ([facility]) Boo Escalante MD: [address], [address], [place] [address], Ph. Attender: Boo BRODERICK - [facility] 10/02/2019 12:00:00 AM EDT FROILAN ([facility]) Boo Escalante MD: [address], [address], [place] [address], Ph. Attender: Boo BRODERICK - [facility] 10/02/2019 12:00:00 AM EDT FROILAN ([facility]) Boo Escalante MD: [address], [address], [place] [address], Ph. Attender: Boo BRODERICK - [facility] 10/02/2019 12:00:00 AM EDT FROILAN ([facility]) Boo Escalante MD: [address], [address], [place] [address], Ph. Attender: Boo BRODERICK - [facility] 10/02/2019 12:00:00 AM EDT FROILAN ([facility]) Boo Escalante MD: [address], [address], [place] [address], Ph. Attender: Boo Escalante MD [place] - [facility] - Main Office 10/02/2019 12:00:00 AM EDT FROILAN ([facility]) Boo Escalante MD: [address] [address], [address], [place] [address], Ph. Attender: Boo Escalante MD [place] - [facility] 10/02/2019 12:00:00 AM EDT FROILAN ([facility]) Outpatient Attender: RYAN VALLES PAReferrer: MYA RODRIGUES MD 09/12/2019 07:53:39 AM EST [facility] Outpatient 09/11/2019 08:53:00 AM EST [facility] Radiology Imaging Recurring Patient Attender: MYA MATA MDReferrer: MYA MATA MD 08/09/2019 07:21:45 AM EST [facility] [place] ( in Healthcare facility) Attender: Chidi Gupta MDAdmitter: Kun Gupta MD 08/02/2019 10:30:00 AM EST [facility] Outpatient Attender: SHONDA FERNÁNDEZ DO 07/25/2019 10:57:12 AM EST [facility] Outpatient Attender: Kun Gupta MD 07/25/2019 09:43:00 A M EST [facility] PRETESTING Recurring Patient Attender: MYA MATA MDReferrer: MYA MATA MD 07/10/2019 07:37:22 AM EST [facility] Outpatient Attender: Kun Gupta MDReferrer: MAY MORA MD 07/06/2019 03:23:05 PM EST [facility] Outpatient Attender: SANAM BARAJAS MDAt tender: MYA MATA MDReferrer: MYA MATA MD [email or web address] 06/26/2019 01:49:00 PM EST - 06/26/2019 11:59:00 PM EST [facility] Patient discharged. Outpatient Attender: MYA MATA MD 06/20/2019 09:05 :02 PM EST [facility] Outpatient Attender: MYA MATA MD 06/20/2019 08:43 :53 PM EST [facility] Outpatient Attender: MYA MATA MD 06/20/2019 08:07 :51 PM EST [facility] Outpatient Attender: MYA MATA MD 06/20/2019 08:07 :51 PM EST [facility] Outpatient Attender: MYA MATA MD 06/20/2019 07:54 :52 PM EST [facility] Outpatient Attender: MYA MATA MDReferrer: MYA MATA MD [email or web address] 06/20/2019 12:00:00 AM EST - 06/20/2019 03:24:41 PM EST [facility] Outpatient Attender: MICHAEL YEAdmitter: MICHAEL YE ES1 -[email or web address].CVAU 06/13/2019 10:02:25 AM EST - 06/26/2019 04:15:00 PM EST [facility] Patient discharged. Recurring Patient Attender: MYA MATA MDReferrer: MYA MATA MD 06/08/2019 02:14:46 PM EST [facility] Medications Medication Brand Name Start Date Product Form Dose Route Admi nistrative Instructions Pharmacy Instructions Status Indications Reaction Description Data Source(s) iopamidol (ISOVUE-M) 41 % intrathecal injection 20 mL [id number] 06/26/2019 02:19:47 PM EST 20 mL Intrathecal active 20 m L, Intrathecal, Once in imaging, contrast, Starting 06/26/19 at 1419, For 1 dose [facility] Medication administered onsite iopamidol (ISOVUE-M) 41 % intrathecal injection 20 mL [id number] 06/26/2019 02:08:40 PM EST 20 mL Intrathecal completed 20 mL, Intrathecal, Once in imaging, contrast, Starting 06/26/19 at 1408, For 1 dose [facility] Medication administered onsite Acetaminophen 325 MG Oral Tablet acetaminophen (TYLENO L) 325 MG tablet 650 mg acetaminophen (TYLENOL) 325 MG tablet 650 mg 06/26/2019 02:05:30 PM EST 650 mg Oral active 650 mg, Or al, Every 4 hours PRN, mild pain (1-3), Starting 06/26/19 at 1405, Post-op
"Maximum dose of acetaminophen is 4,000 mg from all sources in 24 hours."
[facility] Medication administered onsite INCOMPLETE HOME MEDICATION FOR INFORMATIONAL PURPOSES ONLY aborted Medication for headaches but mesfin francois doesn't recall name [facility] Insurance Providers Payer name Policy type / Coverage type Policy ID Covered republican ID Covered republican's relationship to bell Policy Bell Plan Information EAST ACTIVE DUTY [id number] SP [id number] East Humana F [id number] SELF [id number] [place] WPS [id number] S [id number] HEA [id number] S [id number] HUMANA EAST REG O [id number] S [id number] HUMANA HEA [id number] S [id number] 300 [id number] Heather [id number] 300 East Humana F [id number] SELF [id number] East Humana F [id number] SELF [id number] EAST HUMANA - O/P [id number] 18 [id number] U [id number] Self [id number] 300 ACTIVE DUTY [id number] SP [id number] ACTIVE DUTY [id number] SP [id number] Problems, Conditions, and Diagnoses Code Display Name Description Problem Type Effective Dates Data Source(s) G47.00 Insomnia Insomnia [id number] 06/20/2019 12:00:00 AM ES T [facility] G95.9 Cervical myelopathy Cervical myelopathy [id number] 08/21/2018 12:00:00 AM [facility] K21.9 GERD (gastroesophageal reflux disease) G ERD (gastroesophageal reflux disease) [id number] 06/20/2019 12:00:00 AM [facility] R42 Dizziness and giddiness DIZZINESS AND GIDDINESS Diagno sis 03/14/2020 10:10:00 AM [facility] M54.2 Cervicalgia Cervicalgia Diagnosis 06/26/2019 01:49:00 PM [facility] G95.9 Disease of spinal cord, unspecified Disease of s lupe cord, unspecified Diagnosis 06/26/2019 12:10:00 PM [facility] G47.00 Insomnia, unspecified Insomnia, unspecified Diagnosis 06/20/2019 02:49:41 PM [facility] K21.9 Gastro-esophageal reflux disease without esophagitis Gastro-esophageal reflux disease without Diagnosis 06/20/2019 02:49:41 PM [facility] Surgeries/Procedures Procedure Description Date Indications Data Source(s) MRI Brain W/O Contrast, Followed By Contrast 0 12:00:00 AM EDT MEDENT ([facility]) MRI Brain W/O Contrast, Followed By Contrast 0 12:00:00 AM EDT MEDENT ([facility]) MRI Spine Cervical W/O Contrast, Followed By Contrast 03/15/2020 12:00:00 AM EDT MEDENT ([facility]) MRI Spine Cervical W/O Contrast, Followed By Contrast 03/15/2020 12:00:00 AM EDT MEDENT ([facility]) MRI Spine Thoracic W/O Contrast, Followed By Contrast 03/15/2020 12:00:00 AM EDT MEDENT ([facility]) MRI Spine Thoracic W/O Contrast, Followed By Contrast 03/15/2020 12:00:00 AM EDT MEDENT ([facility]) MRI, pelvis, w/o contrast 02/07/2020 12:00:00 AM EDT FROILAN ([facility]) Neck Surgery 12/18/2019 12:00:00 AM EDT A THENA ([facility]) Neck Surgery 12/18/2019 12:00:00 AM EDT A THENA ([facility]) Neck Surgery 12/18/2019 12:00:00 AM EDT A THENA ([facility]) Neck Surgery 12/18/2019 12:00:00 AM EDT A THENA ([facility]) Neck Surgery 12/18/2019 12:00:00 AM EDT A THENA ([facility]) Neck Surgery 12/18/2019 12:00:00 AM EDT A THENA ([facility]) Neck Surgery 12/18/2019 12:00:00 AM EDT A THENA ([facility]) Neck Surgery 12/18/2019 12:00:00 AM EDT A THENA ([facility]) Neck Surgery 12/18/2019 12:00:00 AM EDT A THENA ([facility]) Neck Surgery 12/18/2019 12:00:00 AM EDT A THENA ([facility]) Neck Surgery 12/18/2019 12:00:00 AM EDT A THENA ([facility]) Arthrodesis Anterior Interbody Technique W/Diskectomy, Below C2 12/18/2019 12:00:00 AM EDT MEDENT ([facility]) Spinal Instrumentation Anterior 2-3 Vertebral Segments 12/18/2019 12:00:00 AM EDT MEDENT ([facility]) Insertion Interbody Biomechanical Device; Each Interspace 12/18/2019 12:00:00 AM EDT MEDENT ([facility]) RMVL DISC ARTHROPLASTY ANT 1 INTERSPACE CERVICAL 12/17 12:00:00 AM EDT MEDENT ([facility]) FLUORO NEEDLE/CATH SPINE/PARASPINAL DX/THER IR LUMBAR PUNCTURE Routine 06/26/2019 2:29 PM EST 06/26/2019 07:29:01 PM EST [facility] CT CERVICAL SPINE W/CONTRAST MATERIAL CT MYELOGRAM CERVICAL SPI NE Routine 06/26/2019 2:29 PM EST Cervicalgia 06/26/2019 07:29:01 PM EST Cervicalgia [facility] Cervicalgia THROMBOPLASTIN TIME PARTIAL PLASMA/WHOLE BLOOD APTT Routine 06/20/2019 3:25 PM EST Gastroesophageal reflux disease, esophagitis presence not specified 06/20/2019 08:25:00 PM EST Gastroesophageal reflux disease, esophag itis presence not specified [facility] Gastroesophageal reflux disease, esophag itis presence not specified PROTHROMBIN TIME PROTIME-INR Routine 06/20/2019 3:25 PM EST Gastroesophageal reflux disease, esophagitis presence not specified 06/20/2019 08:25:00 PM EST Gastroesophageal reflux disease, esophag itis presence not specified [facility] Gastroesophageal reflux disease, esophag itis presence not specified BLOOD COUNT COMPLETE AUTO&AUTO DIFRNTL WBC COUNT CBC AND DIFFER ENTIAL Routine 06/20/2019 3:25 PM EST Gastroesophageal reflux disease, esophagitis presence not specified 06/20/2019 08:25:00 PM EST Gastroesophageal reflux disease, esophag itis presence not specified [facility] Gastroesophageal reflux disease, esophag itis presence not specified BASIC METABOLIC PANEL CALCIUM TOTAL BASIC METABOLIC PANEL Routi ne 06/20/2019 3:25 PM EST Gastroesophageal reflux disease, esophagitis presence not specified 06/20/2019 08:25:00 PM EST Gastroesophageal reflux disease, esophag itis presence not specified [facility] Gastroesophageal reflux disease, esophag itis presence not specified Results ID Date Data Source [id number] 07/28/2020 09:45:00 AM EST [facility] Name Value Range Interpretation Code Description Data Stormy rce(s) Supporting Document(s) SARS coronavirus 2 RNA Not Detected [facility] This lab was ordered by [facility] and reported by [facility]. ID Date Data Source [id number] 06/23/2020 08:51:32 AM EST [facility] Mya ClemenciaOB: 1980Provider: Minesh Gupta: 06/23/2020 Reason For VisitMya Thompson is here today for post op follow up. yMa Thompson is an established patient here for follow up. Reports neck stiffness. Surgery DOS: . Surgery Description: C6-7 artificial disc removal w/ACDF,porsthetic cage placement + plate/screw instrumentation. The patient has not had a course of physical therapy for greater than 4 weeks. Patient is working at this time at regular duty. Plan X-Ray I Cervical Spine - 2 views (XRays were ordered, obtained and interpreted today inthe office. Indication: pain/dysfunction.); Status:Complete; Done: [id number] Perform:SOS22; Due:[id number]; Last Updated By:Remi Chacon; 06/23/2020 8:31:45 AM;Ordered; For:Neck pain; Ordered By:Kun Gupta; Physical Therapy (SOS) - Spinal Physical Therapy Evaluation and Treatment Status:Complete Done: [id number] Ordered;For: Neck pain; Ordered By: Kun Gupta Performed: Due: [id number]; Last Updated By: Vijaya Chahal; 06/23/2020 8:50:07 AMDuration: : Four WeeksPT Frequency : Two or three times a weekSOS ROM and Strength : Range of motion and strengthening exercises.Heat Ultra and Modalities : Heat Ultrasound and modalities as indicatedEvaluate and Treat: : Please evaluate and treat as indicated. Chief complaint patient states here for follow-upThidonta is a pleasant gentleman. He is status post surgery December 18, 2019. This was the removal of a disc replacement and cervical fusion. Cervical fusion was performed at C6- C7. He was last evaluated January 2020. He was recommended to follow-up 3 months afterward. He is here for his follow-up today. At his last visit we discussed a 20 pound lifting limit and no overhead lifting, no running.X-rays ordered, obtained, and interpreted by myself today. Cervical spine AP and lateral. Implants well positioned at C6-C7.Patient reports stiffness in the neck, pain in the left triceps, I lateral ulnar forearm numbness and tingling and small finger numbness and tingling. Reports neck pain in the posterior neck and base of the neck. He would like to continue doing physical therapy.The patient is well- developed, well-nourished and in no acute distress. The patient appears their stated age and is dressed appropriately for climate. The pupils are equal, round and reactive to accommodation. Head is normocephalic and atraumatic. Respirations are even and unlabored. On neurologic examination, the patient is alert and oriented to time, place and person. Memory is intact to recall testing. Affect is not blunted. Speech is appropriate. The skin appears normal and is negative for ulcers or rashes. There is no edema of the extremities and less than 2 seconds of capillary refill is present.On examination, the patient's moderate limitations in cervical range of motion in all planes. Cervical spine is nontender. Left and right triceps strength is 4 out of 5. Sensation is decreased in the bilateral forearms bilateral small. Otherwise, no focal deficit s. Reflexes are 2+ in the biceps and brachioradialisAssessmentCervical radiculopathystatus post surgery, plan:1. Medication: anti-inflammatories as needed.2. Imaging: No further imaging at this time3. Injection: Not indicated4. Activity:as tolerated. 5. Referral: Physical therapy prescribed. Pain management referral [facility]6. I will see the patient back as needed. The patient understands they may contact us if they have any change in symptoms Signatures Electronically signed by : Kun Gupta M.D.; Jun 23 2020 8:51AM EST (Author) Name Value Range Interpretation Code Description Data Stormy rce(s) Supporting Document(s) ID Date Data Source [id number] 02/04/2020 11:11:09 AM EDT [facility]jia: 1980Provider: Minesh Gupta: 02/04/2020 Joy is a pleasant gentleman who is here for his postoperative visit. He had a disc replacement removed and converted to a fusion at C6-C7 because of complaints of subjective weakness in the legs, numbness in the legs with cervical flexion, and numbness the right ulnar arm. He had physical therapy but it made his pain worse. He was diagnosed with a failure of cervical disc replacement and this was converted to a fusion and a decompression was performed. Intraoperatively, the posterior longitudinal ligament was resected and the spinal cord decompressed as well as the bilateral neural foramina. X-rays from the first postoperative visit on January 01, 2020 showed implants well positioned at C6-C7 with distraction across the disc space and resection of posterior disc ossification complexesHe is doing well. He reports some residual pain at the left axillary region and pain at the base the neck and between the shoulder blades. His numbness in the arms has improved. His neck range of motion is within normal limits.Strength is fully intact and sensation is fully intact C5-T1 with 2+ reflexes bilaterally, incision healing well, full range of motionAssessmentCervical radiculopathystatus post surgery, doing wellplan:1. Medication: anti-inflammatories as needed.2. Imaging: No further imaging at this time3. Injection: Not indicated4. Activity: 20 pound lifting limit, no overhead lifting, no running. 5. Referral: None6. I will see the patient back in 3 months. The patient understands they may contact us if they have any change in symptomsWe can lift restrictions at his next visit if he is doing well. If he is doing well the next visit, the patient may proceed with activities as tolerated Signatures Electronically signed by : Kun Gupta M.D.; Feb 04 2020 11:11AM EST (Author) Name Value Range Interpretation Code Description Data Stormy rce(s) Supporting Document(s) ID Date Data Source [id number] 01/11/2020 12:00:00 AM EDT FROILAN ([facility]) Name Value Range Interpretation Code Description Data Stormy rce(s) Supporting Document(s) ID Date Data Source [id number] 01/11/2020 12:00:00 AM EDT FROILAN ([facility]) Name Value Range Interpretation Code Description Data Stormy rce(s) Supporting Document(s) ID Date Data Source [id number] 01/11/2020 12:00:00 AM EDT FROILAN ([facility]) Name Value Range Interpretation Code Description Data Stormy rce(s) Supporting Document(s) ID Date Data Source [id number] 01/11/2020 12:00:00 AM EDT FROILAN ([facility]) Name Value Range Interpretation Code Description Data Stormy rce(s) Supporting Document(s) ID Date Data Source [id number] 01/11/2020 12:00:00 AM EDT FROILAN ([facility]) Name Value Range Interpretation Code Description Data Stormy rce(s) Supporting Document(s) ID Date Data Source [id number] 01/11/2020 12:00:00 AM EDT FROILAN ([facility]) Name Value Range Interpretation Code Description Data Stormy rce(s) Supporting Document(s) ID Date Data Source [id number] 01/11/2020 12:00:00 AM EDT FROILAN ([facility]) Name Value Range Interpretation Code Description Data Stormy rce(s) Supporting Document(s) ID Date Data Source [id number] 01/11/2020 12:00:00 AM EDT [facility] ([facility]) Name Value Range Interpretation Code Description Data Stormy rce(s) Supporting Document(s) ID Date Data Source [id number] 01/11/2020 12:00:00 AM EDT [facility] ([facility]) Name Value Range Interpretation Code Description Data Stormy rce(s) Supporting Document(s) ID Date Data Source [id number] 01/11/2020 12:00:00 AM EDT [facility] ([facility]) Name Value Range Interpretation Code Description Data Stormy rce(s) Supporting Document(s) ID Date Data Source [id number] 01/11/2020 12:00:00 AM EDT [facility] ([facility]) Name Value Range Interpretation Code Description Data Stormy rce(s) Supporting Document(s) ID Date Data Source [id number] 01/11/2020 12:00:00 AM EDT [facility]AN ([facility]) Name Value Range Interpretation Code Description Data Stormy rce(s) Supporting Document(s) ID Date Data Source [id number] 01/11/2020 12:00:00 AM EDT [facility] Name Value Range Interpretation Code Description Data Stormy rce(s) Supporting Document(s) SARS-CoV-2 [facility] This lab was ordered by [facility] [employer] [facility]-COVID19 and reported by [facility]. ID Date Data Source [id number] 01/02/2020 11:24:42 AM EDT [facility]: 1980Provider: Daly Valles: 01/01/2020 History of Present IllnessThis is a 39-year-old male complaining of persistent neck pain as well as some referred pain into the trapezii and triceps. He is two-week status post removal of disc arthroplasty and cervical fusion at C6-7. No drainage or fevers. He's been taking hydrocodone with limited relief. He describes a lot of muscle spasms. Assessment 1. Cervical radiculopathy (723.4) (M54.12) 2. Aftercare following surgery of the musculoskeletal system (V58.78) (Z47.89) 3. Neck pain (723.1) (M54.2) 4. Postsurgical arthrodesis status (V45.4) (Z98.1) Plan Start: Cyclobenzaprine HCl - 10 MG Oral Tablet; TAKE 1 TABLET 3 times daily PRNMDD:3 Rx By: Ryan Valles; Dispense: 0 Days ; #:90 Tablet; Refill: 0;For: Neck pain; KALEIGH = N; Print Rx; Last Updated By: Vijaya Chahal; 01/01/2020 8:25:04 AM Start: HYDROcodone- Acetaminophen 7.5-325 MG Oral Tablet ([facility]); 1 PO Q6 HRSPRN PAIN Reference #:[id number] MDD:4 Rx By: Ryan Valles; Dispense: 0 Days ; #:60 Tablet; Refill: 0;For: Aftercare following surgery of the musculoskeletal system, Neck pain; KALEIGH = N; Print Rx; Last Updated By: Vijaya Chahal; 01/01/2020 8:28:47 AM X-Ray I Cervical Spine - 2 views (XRays were ordered, obtained and interpreted today inthe office. Indication: pain/dysfunction.); Status:Complete; Done: [id number] Perform:SOS22; Due:30Adp1601; Last Updated By:Amanda Diaz; 01/01/2020 8:08:07 AM;Ordered; For:Cervical radiculopathy; Ordered By:Ryan Valles; Plan, Assessment and Recommendation(s) The patient will continue his postoperative course at home. He wants to do stretches on his own for now and wait to see if he needs physical therapy. I refilled his hydrocodone and also gave him some Flexeril to use as directed. Follow-up next month with Dr. Gupta as scheduled. Work / School Note Mya Thompson is on total disability until next visit. DisclaimersThis document was dictated and electronically signed using [employer] software. A reasonable attempt at proof reading has been made to minimize errors. Please call with any questions. Signatures Electronically signed by : Julio Morgan; Jan 01 2020 8:42AM EST (Author) Electronically signed by : Kun Gupta M.D.; Jan 02 2020 11:24AM EST Name Value Range Interpretation Code Description Data Stormy rce(s) Supporting Document(s) ID Date Data Source [id number] 12/31/2019 12:00:00 AM EDT [facility] ([facility]) Name Value Range Interpretation Code Description Data Stormy rce(s) Supporting Document(s) ID Date Data Source [id number] 12/31/2019 12:00:00 AM EDT [facility] ([facility]) Name Value Range Interpretation Code Description Data Stormy rce(s) Supporting Document(s) ID Date Data Source [id number] 12/31/2019 12:00:00 AM EDT [facility] ([facility]) Name Value Range Interpretation Code Description Data Stormy rce(s) Supporting Document(s) ID Date Data Source [id number] 12/31/2019 12:00:00 AM EDT [facility] ([facility]) Name Value Range Interpretation Code Description Data Stormy rce(s) Supporting Document(s) ID Date Data Source [id number] 12/31/2019 12:00:00 AM EDT [facility] ([facility]) Name Value Range Interpretation Code Description Data Stormy rce(s) Supporting Document(s) ID Date Data Source [id number] 12/31/2019 12:00:00 AM EDT [facility] ([facility]) Name Value Range Interpretation Code Description Data Stormy rce(s) Supporting Document(s) ID Date Data Source [id number] 12/31/2019 12:00:00 AM EDT [facility] ([facility]) Name Value Range Interpretation Code Description Data Stormy rce(s) Supporting Document(s) ID Date Data Source [id number] 12/31/2019 12:00:00 AM EDT [facility] ([facility]) Name Value Range Interpretation Code Description Data Stormy rce(s) Supporting Document(s) ID Date Data Source [id number] 12/31/2019 12:00:00 AM EDT [facility] ([facility]) Name Value Range Interpretation Code Description Data Stormy rce(s) Supporting Document(s) ID Date Data Source [id number] 12/31/2019 12:00:00 AM EDT [facility] ([facility]) Name Value Range Interpretation Code Description Data Stormy rce(s) Supporting Document(s) ID Date Data Source [id number] 12/31/2019 12:00:00 AM EDT [facility] ([facility]) Name Value Range Interpretation Code Description Data Stormy rce(s) Supporting Document(s) ID Date Data Source [id number] 12/31/2019 12:00:00 AM EDT [facility] ([facility]) Name Value Range Interpretation Code Description Data Stormy rce(s) Supporting Document(s) ID Date Data Source [id number] 12/31/2019 12:00:00 AM EDT [facility] ([facility]) Name Value Range Interpretation Code Description Data Stormy rce(s) Supporting Document(s) ID Date Data Source [id number] 12/31/2019 12:00:00 AM EDT [facility] ([facility]) Name Value Range Interpretation Code Description Data Stormy rce(s) Supporting Document(s) ID Date Data Source [id number] 12/31/2019 12:00:00 AM EDT [facility] Name Value Range Interpretation Code Description Data Stormy rce(s) Supporting Document(s) SARS-CoV-2 [facility] This lab was ordered by [facility]-COVID[facility] and reported by [facility]. ID Date Data Source [id number] 12/18/2019 05:13:00 PM EDT [facility] DATE OF EXAM: 12/18/2019EXAM: Spine Cerv ical 1V INDICATION: c6-7 acdf michell 5 ft .2 mmm TECHNIQUE: One intraoperative images were obtained. COMPARISON: None available. FINDINGS/IMPRESSION: Single intraoperative fluoroscopic image obtained during C6-C7 ACDF.Please refer to surgical report for further details. Fluoroscopy time: 3.0 seconds. X5End of diagnostic report for accession: [id number] Interpreted: Leona Conde MDTranscribed: 12/18/2019 05:13 PMSigned: 12/18/2019 05:13 PM Leona Conde MD [facility] # [id number] BILL # [id number] [facility] Name Value Range Interpretation Code Description Data Stormy rce(s) Supporting Document(s) ID Date Data Source [id number] 12/28/2019 11:46:00 AM EDT [facility] [address] [facility] [place], [place] [address]XSIXBKL NAME: MYA THOMPSONDATE OF : 1980REPORT: OPERATIONPATIENT NUMBER: [id number] STATUS: OF ADMISSION: 12/18/2019DATE OF DISCHARGE:ROOM:DATE OF PROCEDURE: 12/18/2019PREOPERATIVE DIAGNOSES:1. Cervical radiculopathy.2. Cervical myelopathy, C6-C7.3. 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 Cervical radiculopathy.2. Cervical myelopathy, C6-C7.3. Failure of cervical disk replacement, C6-C7.OPERATIVE PROCEDURES:1. Anterior cervical diskectomy and fusion at C6-C7.2. Prosthetic cage, C6-C7.3. Anterior plate and screw instrumentation, C6-C7.4. Removal of cervical disk replacement, C6-C7, Mobi-C device.SURGEON: Kun Gupta MDASSISTANT: Hardik Dick DNP, no resident was available.ANESTHESIA: General.ESTIMATED BLOOD LOSS: Minimal.IV FLUIDS ADMINISTERED: 800 cc of lactated Ringer's.DRAINS: No ne.SPECIMENS: None.GRAFTS: Actifuse.IMPLANTS: Biomet MaxAn 8-mm PEEK cage, size 11-mm Biomet plate, 16 mmscrews at C6-C7.COMPLICATIONS: None.CONDITION: Stable.INDICATIONS FOR SURGERY: This is a very pleasant gentleman who had a diskreplacement placed in 2017 at C6-C7. He reports back pain and shootinglower extremity pain with cervical flexion with difficulty running andwalking. He reports subjective weakness in his legs with cervical flexionand he has numbness in his right ulnar arm. He has had physical therapy,but it made his symptoms worse. He had MRIs of his lumbar spine performedthat were negative for neurologic compression in the lumbar spine. An MRIof the cervical spine showed myelomalacia at C6-C7, and on the x-rays therewas concern about failure in subsidence of the cervical disk replacement.On examination, the patient had a very abnormal unsteady gait with markedlyabnormal tandem gait. His right wrist extensor strength and tricepsstrength was 3+/5 with weakness in the right hand intrinsics measuring 4/5.His right iliopsoas strength was 4-/5 and his left iliopsoas strength was4/5. Lhermitte's sign was positive. Patient is indicated for surgery toremove the implant, decompress the cervical space at C6-C7 and stabilizethis with a fusion.PROCEDURE: Intravenous Kefzol was given within 1 hour of incision time andordered to be stopped within 24 hours of surgery. The patient was seenprior to surgery. His neck was signed and then he was brought to theoperating room. He was placed supine for the intubation. The arms werepositioned at his sides and lightly taped to the table without significantretraction. After prepping and draping, a left-sided Cade- Robinsonapproach was performed in the anterior cervical spine. I dissected throughthe previous incision and scar tissue. I palpated the disk replacements.I then cauterized the area around this to visualize the Mobi-C diskreplacement. I elevated the longus colli bilaterally. After mobilizationof the longus colli, retractors were placed underneath these muscles. Onesimo placed Manchester pins at C6 and C7 and distracted across this level. Bydistraction, I was able to separate the Mobi-C endplates further and then Iplaced osteotomes underneath the Mobi-C disk replacement endplates of C6and C7 and removed the endplates. I was then able to extract the entireMobi-C cervical disk replacement device. After this was done, I broughtthe microscope into the surgical field. All scar tissue was resected. Thepatient was found to have a large inferior disk osteophyte complex at C6-C7with contact and displacement of the thecal sac. This disk osteophyte wascoming from the inferior endplate of C6. This was completely removed witha high-speed bur to decompress the central canal. The bur was used to planedown the enplates of C6-7 to remove fibrinous tissue that had grown fromtheendplates between the disc replacement-vertebral endplate surface. Theimplanthad been removed very easily earlier in the operation and after visualizingthe fibrinous tissue, it appeared as though the disc replacement baseplateshad not in-grown into the vertebral body enplates. I also identified thattheposterior longitudinal ligament had not been resected and so therefore Iresected this posterior longitudinal ligament at C6-C7 completely. I thenperformed bilateral foraminal decompressions with a number two Kerrisonrongeur to decompress the neural foramina. The patient was found to havemoderate to severe foraminal stenosis, right greater than left. This wasimproved after the distraction of the disk space as well as the foraminaldecompression. I then trialed and ultimately inserted a size 8-mm PEEKimplant. The implant was inserted and a plate was placed over the implant.Screws were placed into C6 and C7 and final tightened. All screws had goodpurchase of the bone. The retractors were removed. X-ray showed theimplantswere well-positioned at C6- C7. The wound was then irrigated and closed inseveral layers. The patient was brought to the PACU in stable condition. Iwas present for the entire case and I performed all critical aspects of thesurgery.DICTATED BY: SHERRON Warnerictated: 12/18/2019 9:06DT: 12/18/2019 9:12Job #: [id number]: [facility] computer generated reports are not confirmed orauthenticated unless they are signed by the providerElectronically Authenticated by:KUN GUPTA MD On 12/28/2019 11:46 AM EDT Name Value Range Interpretation Code Description Data Stormy rce(s) Supporting Document(s) ID Date Data Source [id number] 12/13/2019 11:05:09 AM EDT [facility] PCName: Mya Mejia: 1980Provider: Daly Valles: 12/13/2019 History of Present IllnessThis is a 39-year-old male who is here for his preoperative exam. He is here to have his prosthetic disc removed at C6-7 and proceed with cervical decompression and fusion surgery. He would like to move forward with this. Assessment Cervical myelopathy (721.1) (G95.9) Failed orthopedic implant, initial encounter (996.49) (T84.498A) Neck pain (723.1) (M54.2) PlanPlan, Assessment and Recommendation(s) The patient would like to move forward with surgery. He understands that there is no guarantee surgery will improve his condition. He understands that there are risks, including but not limited to, bleeding, infection, nerve injury including paralysis, stroke, myocardial infarction and/or . Given these risks he wishes to move forward with surgery. Answered all of his questions today. He will follow-up after surgery as directed. This document was dictated and electronically signed using [employer] software. A reasonable attempt at proof reading has been made to minimize errors. Please call with any questions. Signatures Electronically signed by : Julio Morgan; Dec 13 2019 11:00AM EST (Author) Electronically signed by : Kun Gupta M.D.; Dec 13 2019 11:05AM EST Name Value Range Interpretation Code Description Data Stormy rce(s) Supporting Document(s) ID Date Data Source [id number] 12/11/2019 12:56:24 PM EDT [facility] SPEC EXP DATE 12/21/2019PATI ENT ABO/Rh O POSITIVEANTIBODY SCREEN NEGATIVETESTING SITE PERFORMED AT [address] [place] [address] BANK COMMENT BLOOD TYPE CONFIRMED. Name Value Range Interpretation Code Description Data Stormy rce(s) Supporting Document(s) ID Date Data Source [id number] 12/08/2019 11:36:35 AM EDT [facility] Name Value Range Interpretation Code Description Data Stormy rce(s) Supporting Document(s) SPECIMEN DESCRIPTION [facility] STAPH SCREEN RESULTS (ONEGSA) [facility] COMMENT [facility] GENE TO DETECT STAPH AUREUS. (2) RT-P CR WAS PERFORMED FOR THE mecA AND SCCmec GENES TO DETECT METHICILLIN RESISTANCE IN STAPH AUREUS. ID Date Data Source [id number] 12/07/2019 11:36:08 AM EDT [facility] Name Value Range Interpretation Code Description Data Stormy rce(s) Supporting Document(s) SODIUM 141 mmol/L (136-145) [facility] POTASSIUM 4.4 mmol/L (3.6-5.2) [facility] CHLORIDE 108 mmol/L (100-108) [facility] CO2 30 mmol/L (22-31) [facility] ANION GAP 3 mmol/L (7-16) L [facility] UREA NITROGEN 10 mg/dL (7-24) [facility] CREATININE 1.01 mg/dL (0.80-1.30) [facility] BUN/CREAT RATIO 9.9 RATIO (10.0-20.0) L [facility] GLUCOSE 87 mg/dL (70-99) [facility] CALCIUM 9.1 mg/dL (8.4-10.2) [facility] TOTAL PROTEIN 7.1 g/dL (6.4-8.2) [facility] ALBUMIN 4.0 g/dL (3.5-4.6) [facility] GLOBULIN 3.1 g/dL (2.7-4.3) [facility] ALB/GLOB RATIO 1.3 RATIO [facility] ALKALINE PHOSPHATASE 77 U/L (45-117) [facility] BILIRUBIN,TOTAL 0.9 mg/dL (0.0-1.0) [facility] PLEASE NOTE:Total bilirubin results may be falselyelevated in patients taking Eltrombopag. AST (SGOT) 18 U/L (11-39) [facility] ALT (SGPT) 47 U/L (12-78) [facility] GFR >60 ml/min/1.73m2 (>59) [facility] GFR ( AMER) >60 ml/min/1.73m2 (>59) [facility] GFR INTERPRETATION [facility] --NORMAL KIDNEY FUNCTION OR MILD DISEASE - GFR >OR= 60CHRONIC KIDNEY DISEASE - GFR 15 - 59RENAL FAILURE - GFR <15 Est. GFR calculation based on the MDRDstudy equation, which assumes a steadystate for creatinine. Est. GFR should notbe used for medication dosing. ID Date Data Source [id number] 12/07/2019 11:12:28 AM EDT [facility] Name Value Range Interpretation Code Description Data Stormy rce(s) Supporting Document(s) WBC 3.7 10*3/uL (4.1-11.0) L [facility] RBC 5.34 10*6/uL (4.60-6.10) [facility] HGB 15.6 g/dL (13.5-18.0) [facility] HCT 46.3 % (41.0-53.0) [facility] PERFORMED AT [address] [facility] [address] MCV 86.7 fL (80.0-95.0) [facility] MCH 29.2 pg (27.0-32.0) [facility] MCHC 33.7 g/dL (32.0-36.0) [facility] RDW 12.8 % (10.5-14.5) [facility] PLT 203 10*3/uL (150-450) [facility] MPV 9.1 fL (7.1-10.7) [facility] NEUT % 45.1 % (35.0-75.0) [facility] LYMPH % 42.3 % (16.0-52.0) [facility] MONO % 12.1 % (0.0-8.0) H [facility] EOS % 0.0 % (0.0-5.0) [facility] BASO % 0.5 % (0.0-4.0) [facility] NEUT # 1.7 10*3/uL (1.8-7.7) L [facility] LYMPH # 1.6 10*3/uL (1.2-4.8) [facility] MONO # 0.4 10*3/uL (0.0-0.8) [facility] Eosinophils [#/volume] in Blood by Automated count 0.0 10*3/uL (0.0-0 .5) [facility] BASO # 0.0 10*3/uL (0.0-0.2) [facility] ID Date Data Source [id number] 12/03/2019 12:00:00 AM EDT [facility] ([facility]) Name Value Range Interpretation Code Description Data Stormy rce(s) Supporting Document(s) ID Date Data Source [id number] 12/03/2019 12:00:00 AM EDT [facility] ([facility]) Name Value Range Interpretation Code Description Data Stormy rce(s) Supporting Document(s) ID Date Data Source [id number] 12/03/2019 12:00:00 AM EDT [facility] ([facility]) Name Value Range Interpretation Code Description Data Stormy rce(s) Supporting Document(s) ID Date Data Source [id number] 12/03/2019 12:00:00 AM EDT [facility] ([facility]) Name Value Range Interpretation Code Description Data Stormy rce(s) Supporting Document(s) ID Date Data Source [id number] 12/03/2019 12:00:00 AM EDT [facility] ([facility]) Name Value Range Interpretation Code Description Data Stormy rce(s) Supporting Document(s) ID Date Data Source [id number] 12/03/2019 12:00:00 AM EDT [facility] ([facility]) Name Value Range Interpretation Code Description Data Stormy rce(s) Supporting Document(s) ID Date Data Source [id number] 12/03/2019 12:00:00 AM EDT [facility]) Name Value Range Interpretation Code Description Data Stormy rce(s) Supporting Document(s) ID Date Data Source [id number] 12/03/2019 12:00:00 AM EDT [facility]) Name Value Range Interpretation Code Description Data Stormy rce(s) Supporting Document(s) ID Date Data Source [id number] 12/03/2019 12:00:00 AM EDT [facility] ([facility]) Name Value Range Interpretation Code Description Data Stormy rce(s) Supporting Document(s) ID Date Data Source [id number] 12/03/2019 12:00:00 AM EDT [facility] ([facility]) Name Value Range Interpretation Code Description Data Stormy rce(s) Supporting Document(s) ID Date Data Source [id number] 12/03/2019 12:00:00 AM EDT [facility]) Name Value Range Interpretation Code Description Data Stormy rce(s) Supporting Document(s) ID Date Data Source [id number] 12/03/2019 12:00:00 AM EDT [facility]) Name Value Range Interpretation Code Description Data Stormy rce(s) Supporting Document(s) ID Date Data Source [id number] 12/03/2019 12:00:00 AM EDT [facility]) Name Value Range Interpretation Code Description Data Stormy rce(s) Supporting Document(s) ID Date Data Source [id number] 12/03/2019 12:00:00 AM EDT [facility]) Name Value Range Interpretation Code Description Data Stormy rce(s) Supporting Document(s) ID Date Data Source [id number] 12/03/2019 12:00:00 AM EDT [facility]) Name Value Range Interpretation Code Description Data Stormy rce(s) Supporting Document(s) ID Date Data Source [id number] 12/03/2019 12:00:00 AM EDT [facility]) Name Value Range Interpretation Code Description Data Stormy rce(s) Supporting Document(s) ID Date Data Source [id number] 12/03/2019 12:00:00 AM EDT [facility] Name Value Range Interpretation Code Description Data Stormy rce(s) Supporting Document(s) SARS-CoV-2 [facility] This lab was ordered by [facility] [employer] [facility]-COVID19 and reported by [facility]. ID Date Data Source [id number] 10/25/2019 11:10:00 AM EDT [facility]) Name Value Range Interpretation Code Description Data Stormy rce(s) Supporting Document(s) Platelet aggregation collagen induced [Presence] in Platelet rich plasma 130 s 56-103 [facility] Results may be affected by platelet coun ts less than 150,000/mL or hematocrits less than 35%. ID Date Data Source [id number] 10/25/2019 11:10:00 AM EDT [facility] ([facility]) Name Value Range Interpretation Code Description Data Stormy rce(s) Supporting Document(s) Collagen Epinephrine 186 s 74-162 [facility] ([facility]) Results may be affected by platelet coun ts less than 150,000/mL or hematocrits less than 35%. If COL/EPI is NORMAL, COL/ADP is not performed. Result Interpretation: COL/EPI COL/ADP NORMAL NORMAL NORMAL ASA ABNORMAL NORMAL vWD ABNORMAL NORMAL GLANZMANN'S ABNORMAL ABNORMAL THROMBASTHENIA POSSIBLE DRUG ABNORMAL ABNORMAL EFFECT ID Date Data Source [id number] 10/25/2019 11:10:00 AM EDT [facility] ([facility] Name Value Range Interpretation Code Description Data Stormy rce(s) Supporting Document(s) Prothrombin Time 14.1 s 11.8-14.0 [facility] ([facility]) Inr 1.11 [facility] ([facility]) THERAPUTIC HUMAN INR VALUES INDICATIONS NORMAL RANGES PROPHYLAXIS/TREATMENT OF: VENOUS THROMBOSIS 2.0-3.0 PULMONARY EMBOLISM 2.0-3.0 PREVENTION OF SYSTEMIC EMBOLISM FROM: TISSUE HEART VALVES 2.0-3.0 ACUTE MYOCARDIAL INFARCTION 2.0-3.0 VALVULAR HEART DISEASE 2.0-3.0 ATRIAL FIBRILLATION 2.0-3.0 MECHANICAL VALVES(HIGH RISK) 2.5-3.5 RECURRENT MYOCARDIAL INFARCTION 2.5-3.5 Partial Thromboplastin Time 33.2 s 25.0-38.4 [facility] ([facility]) ID Date Data Source [id number] 10/25/2019 11:10:00 AM EDT [facility] ([facility] Name Value Range Interpretation Code Description Data Stormy rce(s) Supporting Document(s) Platelets [#/volume] in Blood by Automated count 194 10 150-450 [facility] ([facility]) ID Date Data Source [id number] 09/12/2019 07:53:39 AM EST [facility]: Mya AsareDOB: 1980Provider: Mabel Daly: 07/25/2019 History of Present IllnessThis is a 39-year-old male who is status post C6-7 disc replacement a few years ago done in [place]. He complains of persistent and worsening neck pain with referred pain into both arms. He is scheduled for a removal of cervical disc replacement and fusion of C6-7. He would like to move forward with surgery. Assessment Cervical myelopathy (721.1) (G95.9) Neck pain (723.1) (M54.2) PlanPlan, Assessment and Recommendation(s) The patient would like to move forward with surgery. He understands that there is no guarantee surgery will improve his condition. He understands that there are risks, including but not limited to, bleeding, infection, nerve injury including paralysis, stroke, myocardial infarction and/or . Given these risks he wishes to move forward with surgery. Answered all of his questions today. He will follow-up after surgery as directed. This document was dictated and electronically signed using [employer] software. A reasonable attempt at proof reading has been made to minimize errors. Please call with any questions. Signatures Electronically signed by : Julio Morgan; Jul 25 2019 2:20PM EST (Author) Electronically signed by : Kun Gupta M.D.; Jul 27 2019 9:05AM EST Name Value Range Interpretation Code Description Data Stormy rce(s) Supporting Document(s) ID Date Data Source [id number] 07/26/2019 07:54:00 AM EST [facility] [place], [place] [address]ZXFTOIC NAME: SALVADOR THOMPSON OF : 1980REPORT: HISTORY AND PHYSICALPATIENT NUMBER: [id number] STATUS: IPMEDICAL RECORD NUMBER: [id number] OF ADMISSION: 08/02/2019ROOM:DATE: 07/25/2019ATTENDING SURGEON: JAYJ[facility] WarnerSIERRA [facility]UCS[facility] PH[facility]IAN: Cpt. Shannon [facility] CenterASON FOR ADMISSION: Cervical myelopathy C6-C7, anterior cervicaldiscectomy and fusion, prosthetic cage, anterior plate and screwinstrumentation, removal of disc replacement C6-C7 with Dr. 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 He states [facility]. The patient states a cervical disc was replaced. After surgery, his legs began to feel "heavy". Legs continue to feel heavy. He feels numbness and tingling feelings from his chest down to his feet. Bilateral fourth and farm hand digits feel numbness and tingling, radiating up the arm, medial aspects of the arms. Patient has ongoing neck pain. The patient states urine and stool patterns remain unchanged. He feels his gait has been affected. He has decreased balance ability; however, he has not fallen. He does not limp. The patient has been evaluated in the past by imaging studies and is under the care of Dr. Gupta scheduled for the above surgery.PAST MEDICAL HISTORY:1. Cervical myelopathy.2. Bulging spinal discs.3. Right rotator cuff tear.Otherwise, denies thyroid problems, renal or hepatic disease, seizures,sleep apnea, hypertension, hypercholesterolemia, stroke, TIA, asthma, COPD,recent fever, illness, infection, circulation problems, diabetes, orcoronary artery disease.PAST SURGICAL HISTORY:1. Right shoulder rotator cuff tear on 03/11/2013, status post trauma.2. C6-C7 cervical repair surgery with disc replacement on 01/13/2017 at [facility].FAMILY HISTORY: Parents are healthy.SOCIAL HISTORY: The patient is to Nuzhat Cali and they arethe proud parents of a 4-month-old son. The patient serves in the [employer]. He isChristian by congregational preference. Denies smoking history, alcohol intake,or illicit drug use.MEDICATIONS: No home medications reported at this time. Pharmacy ofchoice would be the [facility].REVIEW OF SYSTEMS: General: Denies fever, night sweats, recent illness,or infection. Head, ears, nose and throat: He has his own teeth. Denieshearing problems, headaches, sinus problems, or thyroid problems.Hematologic and lymphatic: Denies anemia, easy bruising, bleeding, orclotting tendency. Cardiopulmonary: Denies chest pain, palpitation,shortness of breath, lower extremity swelling, chronic cough, orhemoptysis. Gastroin testinal: Bowel movements are daily and brown.Denies swallow disorder, abdominal pain, nausea, vomiting, constipation,diarrhea, melena, or hematochezia. Genitourinary: Denies urinary urgency,frequency, dysuria, hematuria, or prostate problems. Skin, skeletal, andvascular: Reports neck pain. Denies MRSA, VRE, skin rashes, or wounds. Neurologic: He has sensation disturbance, numbness and tingling, from the chest down to the feet and numbness and tingling feeling in the fourth and fifth digits on each hand radiating from those fingers up arms. Balance issues with present problem. Otherwise, denies tremors, seizures, fainting spells, or dizziness. Medical history form has been reviewed with the patient.PHYSICAL EXAMINATION: Vital signs: Blood pressure reclined right arm is104/80, pulse is 76, and oxygenation is 100 percent on room air. Statedheight is 5 feet 6 inches and stated weight is 135 pounds. General: Thisis a 39-year-old male, who appears well-hydrated, properly nourished, andmuscular. Appearance appropriate with stated age. He is alert,cooperative, and in no acute distress. Skin: Skin texture, turgor, andpigmentation are normal. No rashes, cyanosis, or petechiae. Head:N ormocephalic. Sinus area is nontender. Eyes: Pupils are equal, round,and reactive to light and accommodation. Extraocular movement are intactbilaterally. Bilateral sclerae are very mildly red. No ptosis or scleralicterus. Ears: External ear canals are patent. No drainage. Nose:Moist mucosa. No discharge. Mouth and pharynx. Teeth condition isexcellent. Uvula is midline. No pharyngeal or tonsillar hyperemia orexudate. Neck: Carotid pulses are equal. No bruits. Trachea is midlineand freely mobile. No thyromegaly. No cervical lymphadenopathy. Lungsand thorax: Lungs are clear, lung sounds right upper lung mildly decreased compared to left upper lung. No rales, rhonchi, or wheezes. Respiration regular rate and rhythm. Heart: S1 and S2, regular rate and rhythm. No murmurs, clicks, gallops, or rubs. Abdomen is muscular and flat. Bowel sounds are present. No bruits auscultated. Tympany to percussion. No masses, organomegaly, rebound tenderness, or flank pain. Extremities: Muscular. No clubbing, cyanosis, or edema. Radial pulses are 2 to 3+ bilaterally and posterior tibial pulses are 1 to 2+ bilaterally. Do note the hands and wrists feels cool compared to the arms. Musculoskeletal: Adequate range of motion in upper and lower extremities. The patient is muscular throughout. Neurological: Oriented x3. Bleacher Operator strength equal bilaterally 5/5. Leg strength sitting position push- pulls 4/5. Sensation intact to light touch bilaterally. Gait remained steady and balanced the few steps from chair to exam table. Otherwise, cranial nerves III to XII grossly intact.ASSESSMENT AND PLAN:1. Mr. Thompson is a 39-year-old male with diagnosis of cervical myelopathy who is scheduled for C6-C7 anterior cervical discectomy and fusion, prosthetic cage, anterior plate and screw i nstrumentation, removal of disc replacement C6-C7 with Dr. Kun Gupta on 08/02/2019.2. Allergies. Denies all.3. Cervical myelopathy. Monitor and medicate for pain.4. Bulging spinal discs reported from the 2017 surgery. Assist at all times.5. DVT prophylaxis per MD order SCDs and TEDs, early ambulation, fall precautions.6. Numbness and tingling from the chest to the feet. Monitor neuro checks during stay, assist at all times. Note he also has numbness and tingling in the fourth and fifth digits of each hand and lateral aspect of those arms.7. Right rotator cuff tear, surgically repaired, 03/11/2013.8. Monitor oxygen saturation, encourage deep breathing, InspiRx to prevent atelectasis and pneumonia.9. Do note that the right upper lung sounds were mildly decreased compared to the left upper region, the thoracic to bases were both equal and symmetric in intensity. Please encourage deep breathing and Inspirex often and monitor oxygen satura tion.10. Reports mild balance disturbance, take into consideration during stay, monitor, assist at all times.11. Labs and tests ordered include PCR, type and screen, CBC with differential, CMP.12. Medical history form has been reviewed with the patient. Anesthesia will have the final review of the labs. Encouraged the patient to call surgeon with questions, concerns, or changes in health status.13. Further recommendations per Dr. Gupta. As always thank you for allowing me to participate in this patient's care.DICTATED BY: Va Caro NPDictated: 07/25/2019 11:38DT: 07/25/2019 11:46Job #: [id number]: CptVeda ShannonWichita Falls, New YorkNOTE: [facility] computer generated reports are notconfirmed or authenticated unless they are signed by the providerElectronically Authenticated and Edited by:KETURAH WATT NP On 07/26/2019 07:54 AM EST Name Value Range Interpretation Code Description Data Stormy rce(s) Supporting Document(s) ID Date Data Source [id number] 07/26/2019 10:55:33 AM EST [facility] Name Value Range Interpretation Code Description Data Stormy rce(s) Supporting Document(s) SPECIMEN DESCRIPTION [facility] STAPH SCREEN RESULTS (ONEGSA) [facility] COMMENT [facility] GENE TO DETECT STAPH AUREUS. (2) RT-P CR WAS PERFORMED FOR THE mecA AND SCCmec GENES TO DETECT METHICILLIN RESISTANCE IN STAPH AUREUS. ID Date Data Source [id number] 07/25/2019 12:21:52 PM EST [facility] Name Value Range Interpretation Code Description Data Stormy rce(s) Supporting Document(s) WBC 2.9 10*3/uL (4.1-11.0) L [facility] RBC 5.39 10*6/uL (4.60-6.10) [facility] HGB 15.8 g/dL (13.5-18.0) [facility] HCT 47.2 % (41.0-53.0) [facility] PERFORMED AT [address] [facility] [address] MCV 87.6 fL (80.0-95.0) [facility] MCH 29.4 pg (27.0-32.0) [facility] MCHC 33.5 g/dL (32.0-36.0) [facility] RDW 12.4 % (10.5-14.5) [facility] PLT 198 10*3/uL (150-450) [facility] MPV 9.5 fL (7.1-10.7) [facility] NEUT % 32.0 % (35.0-75.0) L [facility] LYMPH % 52.0 % (16.0-52.0) [facility] ATYP LYMPH % 5.0 % (0.0-5.0) [facility] MONO % 9.0 % (0.0-8.0) H [facility] BASO % 2.0 % (0.0-4.0) [facility] NEUT # 0.9 10*3/uL (1.8-7.7) L [facility] LYMPH # 1.5 10*3/uL (1.2-4.8) [facility] ATYP LYMPH # 0.1 10*3/uL [facility] MONO # 0.3 10*3/uL (0.0-0.8) [facility] BASO # 0.1 10*3/uL (0.0-0.2) [facility] POIK 1+ [facility] OVALO 1+ [facility] LARGE PLT 1+ [facility] ID Date Data Source [id number] 07/25/2019 12:15:39 PM EST [facility] SPEC EXP DATE 08/05/2019PATI ENT ABO/Rh O POSITIVEANTIBODY SCREEN NEGATIVETESTING SITE PERFORMED AT [address] [place] [id number] Name Value Range Interpretation Code Description Data Stormy rce(s) Supporting Document(s) ID Date Data Source [id number] 07/25/2019 11:31:26 AM EST [facility] Name Value Range Interpretation Code Description Data Stormy rce(s) Supporting Document(s) SODIUM 140 mmol/L (136-145) [facility] POTASSIUM 4.6 mmol/L (3.6-5.2) [facility] CHLORIDE 106 mmol/L (100-108) [facility] CO2 34 mmol/L (22-31) H [facility] ANION GAP 0 mmol/L (7-16) L [facility] UREA NITROGEN 13 mg/dL (7-24) [facility] CREATININE 1.08 mg/dL (0.80-1.30) [facility] BUN/CREAT RATIO 12.0 RATIO (10.0-20.0) [facility] GLUCOSE 80 mg/dL (70-99) [facility] CALCIUM 9.5 mg/dL (8.4-10.2) [facility] TOTAL PROTEIN 7.4 g/dL (6.4-8.2) [facility] ALBUMIN 4.0 g/dL (3.5-4.6) [facility] GLOBULIN 3.4 g/dL (2.7-4.3) [facility] ALB/GLOB RATIO 1.2 RATIO [facility] ALKALINE PHOSPHATASE 83 U/L (45-117) [facility] BILIRUBIN,TOTAL 0.7 mg/dL (0.0-1.0) [facility] AST (SGOT) 22 U/L (11-39) [facility] ALT (SGPT) 50 U/L (12-78) [facility] GFR >60 ml/min/1.73m2 (>59) [facility] GFR ( AMER) >60 ml/min/1.73m2 (>59) [facility] GFR INTERPRETATION [facility] --NORMAL KIDNEY FUNCTION OR MILD DISEASE - GFR >OR= 60CHRONIC KIDNEY DISEASE - GFR 15 - 59RENAL FAILURE - GFR <15 Est. GFR calculation based on the MDRDstudy equation, which assumes a steadystate for creatinine. Est. GFR should notbe used for medication dosing. ID Date Data Source [id number] 07/06/2019 03:23:05 PM EST [facility], PCName: Mya Mejia: 1980Provider: Minesh Gupta: 07/06/2019 PlanChief complaint patient states heaviness in his legsThis is a pleasant gentleman. He had surgery in 2017. After surgery he reported back pain and shooting leg pain that was worse with cervical flexion. He has difficult the running and walking. He feels subjective weakness in his legs with increased lumbar and leg radiculopathy with cervical flexion. He has numbness of the right ulnar arm. He states that his entire legs feel numb. He has not had any improvement over time. He had physical therapy but it made his symptoms worse. He does not have significant cervical radiculopathy. He did have lumbar MRIs performed previously that do not show any neurologic compression in the lumbar spine. He reports weakness in his hand and hip flexors. He also reports difficulty with balance.The patient is well-developed, well-nourished and in no acute distress. The patient appears their stated age and is dressed appropriately for climate. The pupils are equal, round and reactive to accommodation. Head is normocephalic and atraumatic. Respirations are even and unlabored. On neurologic examination, the patient is alert and oriented to time, place and person. Memory is intact to recall testing. Affect is not blunted. Speech is appropriate. The skin appears normal and is negative for ulcers or rashes. Lymphatic exam: Neck within normal limits. There is no edema of the extremities and less than 2 seconds of capillary refill is present.On examination of the cervical spine, the patient has full flexion, extension, lateral bending to each side, and rotation each side. Patient exhibits an abnormal unsteady gait. Tandem gait is markedly abnormal.. There is no posterior or anterior tenderness of the cervical spine. Motor strength is diminished at the right wrist extensor and triceps measuring 3+ out of 5 with weakness in the right hand intrinsics measuring 4 out of 5. His other myotomes in his arms are 5 out of 5. Motor strength in his right iliopsoas is 4 minus out of 5 and left iliopsoas is 4 out of 5. Sensation is intact in the legs. Sensation is intact to light touch from C5-T1 bilaterally with exception of decreased sensation right ulnar hand.. Reflexes are 2+ in the biceps, brachioradialis, and triceps bilaterally. Bilateral lower extremity reflexes are 2+ in the patellar tendon, Achilles. Pulses are 2+ radial bilaterally and dorsalis pedis bilaterally. Lhermitte's sign is positive. Spurling's is negative. Mak sign is positive bilaterally.. Negative inverted radial reflex and crossed radial reflex bilaterally. Negative shoulder impingement testingNotes reviewed. The patient recently saw another spine provider. History of cervical disc replacement in December 2016. Reports neck pain with radiation to the upper extremities. He was diagnosis cervical myelopathy recently and referred to me for evaluationCervical myelogram reviewed disc replacement at C6-C7. No spinal cord compression.MRI r eviewed cervical spine, myelomalacia of the spinal cord at C6-C7.MRI reviewed of the neck from 4 years ago no myelomalaciaMRI of the cervical spine reviewed from 2 years ago disc protrusion C6-C7 with spinal cord effacement and focal areas of myelomalacia. MRI recently appears to show greater myelomalacia and his MRI from 2 years ago. However there is artifact from the disc prosthesis which limits study interpretationX-rays cervical spine reviewed from February of this year. There is subsidence of the implant at C6-C6wljnyicnrqmkidhqxo myelopathy, C6-7, previous disc replacement at C6-7 with subsidence, failure of instrumentation, myelomalaciatype: myelopathylocation: cervcaletiology: degenerativeplan:1. Medication: anti-inflammatories as needed.2. Imaging: No further imaging at this time3. Injection: Not indicated at this time4. Activity:as tolerated. 5. Referral: None 6. Surgical management recommended for decompression of cervical spine. We discussed the natural history of cervical myelopathy. Risk of progression is greater in patients with radiculopathy, T2 signal hyperintensity, abnormal EMG NCS results, and signs and symptoms of myelopathy.In my opinion, the device should be removed. This requires a disc replacement removal followed by conversion of a fusion at C6-C7. The patient has a positive Lhermitte's sign, myelopathy, and his symptoms are reproducible. He has leg symptoms and weakness. I recommended surgery in the next monthC6-7 Anterior cervical discectomy and fusion, prosthetic cage, anterior plate and screw instrumentation, removal of disc replacement C6-C7The approach will be r ight sided because of his previous right sided surgery and postoperative dysphagia and hoarseness which may represent a recurrent laryngeal nerve injury from his first surgeryWe discussed the risks including but not limited to infection, neurologic injury including C5 palsy and spinal cord injury, dural tear, pseudoarthrosis, fracture, hardware failure, junctional breakdown, dysphagia, dysphonia, hematoma requiring evacuation, repeat intubation after surgery, esophageal or tracheal injury, vertebral artery injury, and the need for possible additional future surgery. We also discussed the possible pe rsistence of symptoms and adjacent segment degeneration. The patient understands there are no guarantees regarding the results of surgery. If a brace is ordered, the patient will be fitted with it prior to the surgical procedure and will be instructed to wear the brace before the surgical procedure to help stabilize the spine. The patient also understands that the risk of surgery includes paralysis which may include from the neck down to the feet. Signatures Electronically signed by : Kun Gupta M.D.; Jul 06 2019 3:23PM EST (Author) Name Value Range Interpretation Code Description Data Stormy rce(s) Supporting Document(s) ID Date Data Source [id number] 06/26/2019 05:02:44 PM EST [address] [id number] Name: MYA ASAREDOB: 1980Sex: MOrdering Provider: MICHAEL YEAutholeobardo Prov: MICHAEL Zapata Provider: MYA MATAProoliver Performed: IR LUMBAR PUNCTUREExam Date: 06/26/2019 14:29MRN: [id number] Number: [id number] Class: OutpatientAccount #: [id number] for Exam: for cervical myelogramTechnique: Image guided lumbar puncture for cervical myelogramFluoroscopy time: 36 SecondsNumber of Spot Images: 5Comparison: NoneFindings: FINDINGS: After the risks and benefits of the procedure were exp lained to the patient, informed consent was obtained. Risks include but are not limited to bleeding, infection, nerve injury, and spinal headache. 1% LIDOCAINE was used for local anesthesia. The patient was sterilely prepped and draped. Using fluoroscopic guidance, a 22-gauge spinal needle was advanced into the CSF space at the L4-L5 level. CSF was seen exiting the needle hub. Approximately 15 cc of Isovue-300 M contrast was injected intrathecally. The needle was removed and a Band-Aid was applied.Providers: Dr. YeComplications: None.IMPRESSION: Image guided lumbar puncture for cervical myelogram as outlined above. Please see separate report for CT findings..Report electronically signed by: MICHAEL YE On 06/26/2019 5:02 PMWorkstation ID: [id number] Name Value Range Interpretation Code Description Data Stormy rce(s) Supporting Document(s) ID Date Data Source [id number] 06/26/2019 03:00:34 PM EST [address] [id number] Name: MYA ASAREDOB: 1980Sex: MOrdering Provider: MYA CHAPARROEFANOAuthorizing Prov: MYA DISTEFANOReferring Provider: MYA OLVERAANOProleslieure Performed: CT MYELOGRAM CERVICAL SPINEExam Date: 06/26/2019 14:29MRN: [id number] Number: [id number] Class: OutpatientAccount #: [id number] for Exam: CervicalgiaTechnique: Helical axial images were obtained without IV contrast.One or more of the following dose reduction techniqueswere utilized; automated exposure control, dose modulation, technique adjustment based on patient size and iterativereconstruction algorithms. Multiplanar reconstructions were created and reviewed.Comparison: Report from MRI of the cervical spine dated 06/07/2019Findings: Intrathecal contrast is noted throughout the cervical spine levels.Patient is status post discectomy with disc spacer placed at the C6-C7 level. The vertebral body heights appear well-maintained. The remainder of the intervertebral disc spaces appear well maintained. There is no evidence of acute fracture or subluxation. Evaluation of the visualized portions of the lung apices demonstrates no suspicious pulmonary nodule or mass lesion.C1-C2: The dens and lateral masses appear intact. There is no significant canal stenosis noted.C2-C3: There is no significant canal stenosis or neuroforaminal narrowing. There is no evidence of disc herniation.C3-C4: There is no significant canal stenosis. There is mild bilateral neural foraminal narrowing. There is no evidence of disc herniation.C4-C5: There is no significant canal stenosis. There is minimal bilateral neuroforaminal narrowing. There is no evidence of disc herniation.C5-C6: There is no significant canal stenosis or neuroforaminal narrowing. There is no evidence of disc herniation.C6-C7: As previously mentioned there is intravertebral disc spacer at this level. There is no significant canal stenosis. There is mild bilateral neural foraminal narrowing. IMPRESSION: Status post discectomy and intravertebral disc spacer placement involving the C6-C7 level. No significant canal stenosis at this level. There is mild bilateral neuroforaminal narrowing at this level.Mild multilevel neuroforaminal narrowing involving the C3-C4 and C4-C5 levels.No evidence of acute fracture or subluxation.No evidence of significant canal stenosis.Report electronically signed by: MICHAEL YE On 06/26/2019 3:00 PMWorkstation ID: [id number] - [id number] Name Value Range Interpretation Code Description Data Stormy rce(s) Supporting Document(s) ID Date Data Source [id number] 06/26/2019 02:07:47 PM [facility]PAT[facility] NT INFORMATIONPatient MRN Name Date of Age Gend*PT [id number] Mya Thompson 1980 39 years M HOPPT Location Admission Date/Time Visit ID Attending ProviderCV-[id number] 06/26/19 1210 --- Michael Ye DO([id number]) EPI ID CSN Admitting Provider [id number] Michael Ye DO([id number])Brief Operative/Invasive Procedure NoteRichard AsareDATE OF : 1980MRN # [id number] DATE: 06/26/2019PROVIDER:Michael Ye DO 06/26/2019 2:06 PMASSISTANCE(S): NonePROCEDURE:Image Guided MyelogramPRE-PROCEDURE DIAGNOSIS:Cervical myelopathyPOST PROCEDURE DIAGNOSIS:Cervical myelopathyANESTHESIA TYPE:localDRAINS:NoneSPECIMENS:NoneESTIMATED BLOOD LOSS: MinimalGRAFTS OR IMPLANTS:NoneFINDINGS: Consistent with operative diagnosisCOMPLICATIONS: NoneMonik Sandoval of [facility] Name Value Range Interpretation Code Description Data Stormy rce(s) Supporting Document(s) ID Date Data Source [id number] 06/26/2019 12:28:42 PM EST [facility]PAT[facility] NT INFORMATIONPatient MRN Name Date of Age Gend*PT [id number] Mya Thompson 1980 39 years M H[facility] Location Admission Date/Time Visit ID Attending ProviderCV-[id number] 06/26/19 1210 --- Michael Ye DO([id number]) EPI ID CSN Admitting Provider [id number] Michael Ye DO([id number])H&P reviewed. Pt examined and there are no changes to the H&P.Signature: SKYLER Pollardate: June 26, 2019Time: 12:28 PM Name Value Range Interpretation Code Description Data Stormy rce(s) Supporting Document(s) ID Date Data Source [id number] 06/20/2019 09:05:01 PM EST [facility] Name Value Range Interpretation Code Description Data Stormy rce(s) Supporting Document(s) WBC 3.7 10*3/uL (4.1-11.0) L [facility] RBC 5.32 10*6/uL (4.60-6.10) [facility] HGB 15.6 g/dL (13.5-18.0) [facility] HCT 45.8 % (41.0-53.0) [facility] MCV 86.1 fL (80.0-95.0) [facility] MCH 29.3 pg (27.0-32.0) [facility] MCHC 34.0 g/dL (32.0-36.0) [facility] RDW 12.8 % (10.5-14.5) [facility] PLT 220 10*3/uL (150-450) [facility] MPV 9.7 fL (7.1-10.7) [facility] NEUT % 34.0 % (35.0-75.0) L [facility] BAND % 1.0 % (0.0-11.0) [facility] LYMPH % 51.0 % (16.0-52.0) [facility] ATYP LYMPH % 1.0 % (0.0-5.0) [facility] MONO % 10.0 % (0.0-8.0) H [facility] EOS % 2.0 % (0.0-5.0) [facility] BASO % 1.0 % (0.0-4.0) [facility] NEUT # 1.3 10*3/uL (1.8-7.7) L [facility] BAND # 0.0 10*3/uL [facility] LYMPH # 1.9 10*3/uL (1.2-4.8) [facility] ATYP LYMPH # 0.0 10*3/uL [facility] MONO # 0.4 10*3/uL (0.0-0.8) Lab [facility] Eosinophils [#/volume] in Blood by Automated count 0.1 10*3/uL (0.0-0 .5) [facility] BASO # 0.0 10*3/uL (0.0-0.2) [facility] ANISO 1+ [facility] LARGE PLT 1+ [facility] ID Date Data Source [id number] 06/20/2019 08:43:53 PM EST [facility] Name Value Range Interpretation Code Description Data Stormy rce(s) Supporting Document(s) SODIUM 143 mmol/L (136-145) [facility] POTASSIUM 4.9 mmol/L (3.6-5.2) [facility] CHLORIDE 107 mmol/L (100-108) [facility] CO2 31 mmol/L (22-31) [facility] ANION GAP 5 mmol/L (7-16) L [facility] UREA NITROGEN 12 mg/dL (7-24) [facility] CREATININE 1.10 mg/dL (0.80-1.30) [facility] BUN/CREAT RATIO 10.9 RATIO (10.0-20.0) [facility] GLUCOSE 60 mg/dL (70-99) L [facility] CALCIUM 9.6 mg/dL (8.4-10.2) [facility] GFR >60 ml/min/1.73m2 (>59) [facility] GFR ( AMER) >60 ml/min/1.73m2 (>59) [facility] GFR INTERPRETATION [facility] --NORMAL KIDNEY FUNCTION OR MILD DISEASE - GFR >OR= 60CHRONIC KIDNEY DISEASE - GFR 15 - 59RENAL FAILURE - GFR <15 Est. GFR calculation based on the MDRDstudy equation, which assumes a steadystate for creatinine. Est. GFR should notbe used for medication dosing. ID Date Data Source [id number] 06/20/2019 08:07:51 PM EST [facility] Name Value Range Interpretation Code Description Data Stormy rce(s) Supporting Document(s) APTT 29.1 s (22.0-34.3) [facility] ID Date Data Source [id number] 06/20/2019 08:07:51 PM EST [facility] [place] Name Value Range Interpretation Code Description Data Stormy rce(s) Supporting Document(s) PT 10.6 s (9.2-11.9) [facility] [place] INR 1.03 [facility] [place] [facility] SUGGESTED THERAPEUTIC RANGES USING INR F ORSTABILIZED ANTICOAGULATED PATIENTS:STANDARD DOSE THERAPY INR 2.0-3.0 DVT, PE, PREVENT DVT OR EMBOLISMHIGH DOSE THERAPY INR 2.5-3.5 PREVENT EMBOLISM FROM MECHANICAL HEART VALVE ID Date Data Source [id number] 06/20/2019 03:24:02 PM EST [facility] INFORMATIONPatient MRN Name Date of Age Gend*PT [id number] Mya Thompson 1980 39 years M OPPT Location Admission Date/Time Visit ID Attending Provider --- --- --- Mya Mata MD([id number]) EPI ID CSN Admitting Provider [id number] ---INTERVENTIONAL RADIOLOGY AND OUT PATIENT HISTORY PHYSICALName: Mya Thompson : 1980 Sex: male Care Provider: No PCPOrthopedic Surgeon: Mya Mata.DIAGNOSIS: Cervical myelopathy.TREATMENT/PROCEDURE: CT myelogram cervical spine on 06/26/2019.HISTORY OF PRESENT ILLNESS: 39 year old black male who presents for evaluationprior to a CT myelogram cervical spine. Mr. Thompson has a history of cervicalspine problems. On 01/13/2017, he underwent a cervical disc replacement at C6-7.He has neck pain and describes it as a "numbing pain".He has developed a heaviness and weakness to the legs with associated gaitdisturbance.PAST MEDICAL HISTORY:Past Medical History:Diagnosis Date Cervical myelopathy GERD (gastroesophageal reflux disease) InsomniaPAST SURGICAL HISTORY:Past Surgical History:Procedure Laterality Date C6-7 DISC REPLACEMENT 01/13/2017 SHOULDER SURGERYALLERGIES: No Known Drug AllergiesMEDICATIONS:Prior to Admission medicationsMedication Sig Start Date End Date Taking? Authorizing Provideramitriptyline (ELAVIL) 25 MG tablet Take 25 mg by mouth nightly as needed forsleep Historical Provider, Davidizatriptan (MAXALT-CLIENT REPORTING ASSOCIATE) 5 MG disintegrating tablet Take 5 mg by mouth as neededfor migraine May repeat in 2 hours if needed Historical Provider, INCOMPLETE HOME MEDICATION FOR INFORMATIONAL PURPOSES ONLY Medication forheadaches but patient doesn't recall name 06/20/19 Historical ProviderDAVIDEVIEW OF SYSTEMS:Respiratory: Denies any shortness of breath, cough, yellow sputum production orwheezing.Cardiovascular: Denies any chest pain, pressure or tightness. Denies nocturnaldyspnea or orthopnea.Neurologic: Denies tremors or syncope.Vascular: Denies any edema. Denies claudication.BP 127/85 (BP Location: Right upper arm, Patient Position: Sitting) | Pulse 62| Resp 10 | Ht 1.676 m (5' 6") | Wt 64.2 kg (141 lb 9 oz) | SpO2 98% | BMI22.85 kg/m PHYSICAL EXAM: Thin, muscular black male, in no acute distress.Airway - Class II. No carotid bruits. No thyromegaly.Mental and Neurological Status: AAO x 3.LUNGS: Clear to auscultation. No wheezes, rhonchi or crackles.HEART: Rate rhythm regular. S1, S2. No murmur, rub or gallop.ABDOMEN: Bowel sounds positive. Soft, non tender. No rebound tenderness. Nohepatosplenomegaly. Negative CVAT.EXTREMITIES: Pulses are symmetric. No edema.06/20/2019 3:23 PMSally MD Federico Name Value Range Interpretation Code Description Data Stormy rce(s) Supporting Document(s) ID Date Data Source [id number] 06/07/2019 12:23:00 PM EST [facility] PATIENT MR#: [id number] NAME: ARE, MYA ROSE OF : 1980REFERRING PHYSICIAN: Mya Briggs DATE: 06/06/2019Indication: Neck pain with bilateral upper extremity pain, numbness and tinglingComparison: X-rays 03/13/2019, MRI 11/23/2016Technique: Cervical spine MRI without contrast.Findings:Visualized posterior fossa and craniocervical junction are unremarkable.C2/3: No change. Disc desiccation and slight broad- based dorsal bulging causesminimal foraminal encroachment. Canal patent. Facets normal.C3/4: No change. Mild canal and foraminal encroachment result fr om loss of discheight with broad-based dorsal bulging, endplate spurs and uncinate spurs. Facets normal.C4/5: No substantial change. Mild canal and moderate foraminal narrowing resultfrom loss of disc height with broad-based bulging, endplate spurs and uncinatespurs. Normal facets.C5/6: No change. Mild canal and mild?moderate foraminal narrowing result frombroad-based dorsal disc bulging with endplate uncinate spurs. Facets normal.C6/7: Disc prosthesis at this level produces substantial artifact which limitsevaluation of the canal and foramina. Facets normal.C7/T1 through T2/3: Normal.No compression fracture. Visualized spinal cord appears normal.Impression:Disc prosthesis causes limited evaluation at C6/7. Consider CT or CT myelogram.Mild canal and mild?moderate foraminal narrowing from C2/3 through C5/6 does notappear changed. Read by: Mika StephensTranscribed by: Mika Goodwin Date: 06/07/2019 12:23:32 PMElectronically signed by: Mika Chang signed: 06/07/2019 12: 24:53 PM Name Value Range Interpretation Code Description Data Stormy rce(s) Supporting Document(s) Procedure Social History Code Duration Value Status Description Data Source(s ) Alcohol intake 06/26/2019 12:00:00 AM EST Never completed [facility] Smoking 06/26/2019 12:00:00 AM EST Never smoker completed Never s [facility] Smoking 06/20/2019 12:00:00 AM EST Never smoker completed Never [facility] Vital Signs ID Date Data Source UNK Name Value Range Interpretation Code Description Data Source(s) Systolic blood pressure 124 mm[Hg] 124 mm[Hg] A THENA ([facility]) Body height 66 [in_i] 66 [in_i] FROILAN ([facility]) Diastolic blood pressure 88 mm[Hg] 88 mm[Hg] FROILAN ([facility]) Systolic blood pressure 124 mm[Hg] 124 mm[Hg] A THENA ([facility]) Body height 66 [in_i] 66 [in_i] FROILAN ([facility]) Diastolic blood pressure 88 mm[Hg] 88 mm[Hg] FROILAN ([facility]) Systolic blood pressure 124 mm[Hg] 124 mm[Hg] A THENA ([facility]) Body height 66 [in_i] 66 [in_i] FROILAN ([facility]) Diastolic blood pressure 88 mm[Hg] 88 mm[Hg] FROILAN ([facility]) Systolic blood pressure 124 mm[Hg] 124 mm[Hg] A THENA ([facility]) Body height 66 [in_i] 66 [in_i] FROILAN ([facility]) Diastolic blood pressure 88 mm[Hg] 88 mm[Hg] FROILAN ([facility]) Systolic blood pressure 124 mm[Hg] 124 mm[Hg] A THENA ([facility]) Body height 66 [in_i] 66 [in_i] FROILAN ([facility]) Diastolic blood pressure 88 mm[Hg] 88 mm[Hg] FROILAN ([facility]) Systolic blood pressure 124 mm[Hg] 124 mm[Hg] A THENA ([facility]) Body height 66 [in_i] 66 [in_i] FROILAN ([facility]) Diastolic blood pressure 88 mm[Hg] 88 mm[Hg] FROILAN ([facility]) Systolic blood pressure 124 mm[Hg] 124 mm[Hg] A THENA ([facility]) Body height 66 [in_i] 66 [in_i] FROILAN ([facility]) Diastolic blood pressure 88 mm[Hg] 88 mm[Hg] FROILAN ([facility]) Body weight 141 [lb_av] 141 [lb_av] [facility]ILAN ([facility]) Systolic blood pressure 123 mm[Hg] 123 mm[Hg] A THENA ([facility]) Body mass index (BMI) [Ratio] 22.8 kg/m2 22.8 k g/m2 FROILAN ([facility]) Body height 66 [in_i] 66 [in_i] FROILAN ([facility]) Diastolic blood pressure 80 mm[Hg] 80 mm[Hg] FROILAN ([facility]) Body weight 141 [lb_av] 141 [lb_av] [facility]AN ([facility]) Systolic blood pressure 123 mm[Hg] 123 mm[Hg] A THENA ([facility]) Body mass index (BMI) [Ratio] 22.8 kg/m2 22.8 k g/m2 FROILAN ([facility]) Body height 66 [in_i] 66 [in_i] FROILAN ([facility]) Diastolic blood pressure 80 mm[Hg] 80 mm[Hg] FROILAN ([facility]) Body weight 141 [lb_av] 141 [lb_av] FROILAN ([facility]) Systolic blood pressure 123 mm[Hg] 123 mm[Hg] A THENA ([facility]) Body mass index (BMI) [Ratio] 22.8 kg/m2 22.8 k g/m2 FROILAN ([facility]) Body height 66 [in_i] 66 [in_i] FROILAN ([facility]) Diastolic blood pressure 80 mm[Hg] 80 mm[Hg] FROILAN ([facility]) Body weight 141 [lb_av] 141 [lb_av] FROILAN ([facility]) Systolic blood pressure 123 mm[Hg] 123 mm[Hg] A THENA ([facility]) Body mass index (BMI) [Ratio] 22.8 kg/m2 22.8 k g/m2 FROILAN ([facility]) Body height 66 [in_i] 66 [in_i] FROILAN ([facility]) Diastolic blood pressure 80 mm[Hg] 80 mm[Hg] FROILAN ([facility]) Body weight 141 [lb_av] 141 [lb_av] FROILAN ([facility]) Systolic blood pressure 123 mm[Hg] 123 mm[Hg] A THENA ([facility]) Body mass index (BMI) [Ratio] 22.8 kg/m2 22.8 k g/m2 FROILAN ([facility]) Body height 66 [in_i] 66 [in_i] FROILAN ([facility]) Diastolic blood pressure 80 mm[Hg] 80 mm[Hg] FROILAN ([facility]) Body weight 141 [lb_av] 141 [lb_av] FROILAN ([facility]) Systolic blood pressure 123 mm[Hg] 123 mm[Hg] A THENA ([facility]) Body mass index (BMI) [Ratio] 22.8 kg/m2 22.8 k g/m2 FROILAN ([facility]) Body height 66 [in_i] 66 [in_i] FROILAN ([facility]) Diastolic blood pressure 80 mm[Hg] 80 mm[Hg] FROILAN ([facility]) Body weight 141 [lb_av] 141 [lb_av] FROILAN ([facility]) Systolic blood pressure 123 mm[Hg] 123 mm[Hg] A THENA ([facility]) Body mass index (BMI) [Ratio] 22.8 kg/m2 22.8 k g/m2 FROILAN ([facility]) Body height 66 [in_i] 66 [in_i] FROILAN ([facility]) Diastolic blood pressure 80 mm[Hg] 80 mm[Hg] FROILAN ([facility]) Body weight 141 [lb_av] 141 [lb_av] FROILAN ([facility]) Systolic blood pressure 123 mm[Hg] 123 mm[Hg] A THENA ([facility]) Body mass index (BMI) [Ratio] 22.8 kg/m2 22.8 k g/m2 FROILAN ([facility]) Body height 66 [in_i] 66 [in_i] FROILAN ([facility]) Diastolic blood pressure 80 mm[Hg] 80 mm[Hg] FROILAN ([facility]) Body weight 141 [lb_av] 141 [lb_av] [facility]AN ([facility]) Systolic blood pressure 123 mm[Hg] 123 mm[Hg] A THENA ([facility]) Body mass index (BMI) [Ratio] 22.8 kg/m2 22.8 k g/m2 FROILAN ([facility]) Body height 66 [in_i] 66 [in_i] FROILAN ([facility]) Diastolic blood pressure 80 mm[Hg] 80 mm[Hg] FROILAN ([facility]) Body weight 141 [lb_av] 141 [lb_av] FROILAN ([facility]) Systolic blood pressure 123 mm[Hg] 123 mm[Hg] A THENA ([facility]) Body mass index (BMI) [Ratio] 22.8 kg/m2 22.8 k g/m2 FROILAN ([facility]) Body height 66 [in_i] 66 [in_i] FROILAN ([facility]) Diastolic blood pressure 80 mm[Hg] 80 mm[Hg] FROILAN ([facility]) Body mass index (BMI) [Ratio] 22.1 kg/m2 22.1 k g/m2 MEDENT ([facility]) Body weight 143.12 [lb_av] 143.12 [lb_av] MEDEN T ([facility]) Body height 67.5 [in_i] 67.5 [in_i] MEDENT ([facility]) 5'7.50" Body temperature 95.8 [degF] 95.8 [degF] MEDENT ([facility]) Body weight 141 [lb_av] 141 [lb_av] FROILAN ([facility]) Systolic blood pressure 120 mm[Hg] 120 mm[Hg] A THENA ([facility]) Body mass index (BMI) [Ratio] 22.8 kg/m2 22.8 k g/m2 FROILAN ([facility]) Body height 66 [in_i] 66 [in_i] FROILAN ([facility]) Diastolic blood pressure 79 mm[Hg] 79 mm[Hg] FROILAN ([facility]) Body weight 141 [lb_av] 141 [lb_av] FROILAN ([facility]) Systolic blood pressure 120 mm[Hg] 120 mm[Hg] A THENA ([facility]) Body mass index (BMI) [Ratio] 22.8 kg/m2 22.8 k g/m2 FROILAN ([facility]) Body height 66 [in_i] 66 [in_i] FROILAN ([facility]) Diastolic blood pressure 79 mm[Hg] 79 mm[Hg] FROILAN ([facility]) Body weight 141 [lb_av] 141 [lb_av] FROILAN ([facility]) Systolic blood pressure 120 mm[Hg] 120 mm[Hg] A THENA ([facility]) Body mass index (BMI) [Ratio] 22.8 kg/m2 22.8 k g/m2 FROILAN ([facility]) Body height 66 [in_i] 66 [in_i] FROILAN ([facility]) Diastolic blood pressure 79 mm[Hg] 79 mm[Hg] FROILAN ([facility]) Body weight 141 [lb_av] 141 [lb_av] FROILAN ([facility]) Systolic blood pressure 120 mm[Hg] 120 mm[Hg] A THENA ([facility]) Body mass index (BMI) [Ratio] 22.8 kg/m2 22.8 k g/m2 FROILAN ([facility]) Body height 66 [in_i] 66 [in_i] FROILAN ([facility]) Diastolic blood pressure 79 mm[Hg] 79 mm[Hg] FROILAN ([facility]) Diastolic blood pressure 79 mm[Hg] 79 mm[Hg] FROILAN ([facility]) Body weight 141 [lb_av] 141 [lb_av] FROILAN ([facility]) Systolic blood pressure 120 mm[Hg] 120 mm[Hg] A THENA ([facility]) Body mass index (BMI) [Ratio] 22.8 kg/m2 22.8 k g/m2 FROILAN ([facility]) Body height 66 [in_i] 66 [in_i] FROILAN ([facility]) Diastolic blood pressure 79 mm[Hg] 79 mm[Hg] FROILAN ([facility]) Body weight 141 [lb_av] 141 [lb_av] FROILAN ([facility]) Systolic blood pressure 120 mm[Hg] 120 mm[Hg] A THENA ([facility]) Body mass index (BMI) [Ratio] 22.8 kg/m2 22.8 k g/m2 FROILAN ([facility]) Body height 66 [in_i] 66 [in_i] FROILAN ([facility]) Diastolic blood pressure 79 mm[Hg] 79 mm[Hg] FROILAN ([facility]) Body weight 141 [lb_av] 141 [lb_av] FROILAN ([facility]) Systolic blood pressure 120 mm[Hg] 120 mm[Hg] A THENA ([facility]) Body mass index (BMI) [Ratio] 22.8 kg/m2 22.8 k g/m2 FROILAN ([facility]) Body height 66 [in_i] 66 [in_i] FROILAN ([facility]) Diastolic blood pressure 79 mm[Hg] 79 mm[Hg] FROILAN ([facility]) Body weight 141 [lb_av] 141 [lb_av] FR[facility]ILAN ([facility]) Systolic blood pressure 120 mm[Hg] 120 mm[Hg] A THENA ([facility]) Body mass index (BMI) [Ratio] 22.8 kg/m2 22.8 k g/m2 FROILAN ([facility]) Body height 66 [in_i] 66 [in_i] FROILAN ([facility]) Diastolic blood pressure 79 mm[Hg] 79 mm[Hg] FROILAN ([facility]) Body weight 141 [lb_av] 141 [lb_av] FROILAN ([facility]) Systolic blood pressure 120 mm[Hg] 120 mm[Hg] A THENA ([facility]) Body mass index (BMI) [Ratio] 22.8 kg/m2 22.8 k g/m2 FROILAN ([facility]) Body height 66 [in_i] 66 [in_i] FROILAN ([facility]) Diastolic blood pressure 79 mm[Hg] 79 mm[Hg] FROILAN ([facility]) Body weight 141 [lb_av] 141 [lb_av] FROILAN ([facility]) Systolic blood pressure 120 mm[Hg] 120 mm[Hg] A THENA ([facility]) Body mass index (BMI) [Ratio] 22.8 kg/m2 22.8 k g/m2 FROILAN ([facility]) Body height 66 [in_i] 66 [in_i] FROILAN ([facility]) Diastolic blood pressure 79 mm[Hg] 79 mm[Hg] FROILAN ([facility]) Body weight 141 [lb_av] 141 [lb_av] FROILAN ([facility]) Systolic blood pressure 120 mm[Hg] 120 mm[Hg] A THENA ([facility]) Body mass index (BMI) [Ratio] 22.8 kg/m2 22.8 k g/m2 FROILAN ([facility]) Body height 66 [in_i] 66 [in_i] FROILAN ([facility]) Diastolic blood pressure 79 mm[Hg] 79 mm[Hg] FROILAN ([facility]) Body weight 141 [lb_av] 141 [lb_av] FROILAN ([facility]) Systolic blood pressure 120 mm[Hg] 120 mm[Hg] A THENA ([facility]) Body mass index (BMI) [Ratio] 22.8 kg/m2 22.8 k g/m2 FROILAN ([facility]) Body height 66 [in_i] 66 [in_i] FROILAN ([facility]) Diastolic blood pressure 79 mm[Hg] 79 mm[Hg] FROILAN ([facility]) Body weight 141 [lb_av] 141 [lb_av] FROILAN ([facility]) Systolic blood pressure 120 mm[Hg] 120 mm[Hg] A THENA ([facility]) Body mass index (BMI) [Ratio] 22.8 kg/m2 22.8 k g/m2 FROILAN ([facility]) Body height 66 [in_i] 66 [in_i] FROILAN ([facility]) Diastolic blood pressure 79 mm[Hg] 79 mm[Hg] FROILAN ([facility]) Body weight 141 [lb_av] 141 [lb_av] FROILAN ([facility]) Systolic blood pressure 120 mm[Hg] 120 mm[Hg] A THENA ([facility]) Body weight 141 [lb_av] 141 [lb_av] FROILAN ([facility]) Systolic blood pressure 120 mm[Hg] 120 mm[Hg] A THENA ([facility]) Body mass index (BMI) [Ratio] 22.8 kg/m2 22.8 k g/m2 FROILAN ([facility]) Body height 66 [in_i] 66 [in_i] FROILAN ([facility]) Body mass index (BMI) [Ratio] 22.8 kg/m2 22.8 k g/m2 FROILAN ([facility]) Body height 66 [in_i] 66 [in_i] FROILAN ([facility]) Diastolic blood pressure 79 mm[Hg] 79 mm[Hg] FROILAN ([facility]) Body weight 141 [lb_av] 141 [lb_av] FROILAN ([facility]) Systolic blood pressure 120 mm[Hg] 120 mm[Hg] A THENA ([facility]) Body mass index (BMI) [Ratio] 22.8 kg/m2 22.8 k g/m2 FROILAN ([facility]) Body height 66 [in_i] 66 [in_i] FROILAN ([facility]) Diastolic blood pressure 79 mm[Hg] 79 mm[Hg] FROILAN ([facility]) Body weight 141 [lb_av] 141 [lb_av] FROILAN ([facility]) Systolic blood pressure 120 mm[Hg] 120 mm[Hg] A THENA ([facility]) Body mass index (BMI) [Ratio] 22.8 kg/m2 22.8 k g/m2 FROILAN ([facility]) Body height 66 [in_i] 66 [in_i] FROILAN ([facility]) Diastolic blood pressure 79 mm[Hg] 79 mm[Hg] FROILAN ([facility]) Body weight 141 [lb_av] 141 [lb_av] FROILAN ([facility]) Systolic blood pressure 120 mm[Hg] 120 mm[Hg] A THENA ([facility]) Body mass index (BMI) [Ratio] 22.8 kg/m2 22.8 k g/m2 FROILAN ([facility]) Body height 66 [in_i] 66 [in_i] FROILAN ([facility]) Diastolic blood pressure 79 mm[Hg] 79 mm[Hg] FROILAN ([facility]) Body weight 141 [lb_av] 141 [lb_av] FR[facility]ILAN ([facility]) Systolic blood pressure 120 mm[Hg] 120 mm[Hg] A THENA ([facility]) Body mass index (BMI) [Ratio] 22.8 kg/m2 22.8 k g/m2 FROILAN ([facility]) Body height 66 [in_i] 66 [in_i] FROILAN ([facility]) Diastolic blood pressure 79 mm[Hg] 79 mm[Hg] FROILAN ([facility]) Oxygen saturation in Arterial blood by Pulse oximetry 99 % 99 % [facility] Respiratory rate 16 /min 16 /min [facility] Body temperature 37 Maddy 37 Maddy [facility] Heart rate 71 /min 71 /min [facility] Diastolic blood pressure 81 mm[Hg] 81 mm[Hg] [facility] Systolic blood pressure 120 mm[Hg] 120 mm[Hg] [facility] Body mass index (BMI) [Ratio] 22.84 kg/m2 22.84 kg/m2 [facility] Body weight 64.2 kg 64.2 kg [facility] Body height 167.6 cm 167.6 cm [facility] Oxygen saturation in Arterial blood by Pulse oximetry 98 % 98 % [facility] Body mass index (BMI) [Ratio] 22.85 kg/m2 22.85 kg/m2 [facility] Body weight 64.212 kg 64.212 kg [facility] Body height 167.6 cm 167.6 cm [facility] Respiratory rate 10 /min 10 /min [facility] Heart rate 62 /min 62 /min [facility] Diastolic blood pressure 85 mm[Hg] 85 mm[Hg] [facility] Systolic blood pressure 127 mm[Hg] 127 mm[Hg] [facility] Patient Treatment Plan of Care Planned Activity Planned Date Details Description Data Source (s) INCOMPLETE HOME MEDICATION FOR INFORMATIONAL PURPOSES ONLY [facility]
[2020-08-03] MEDS ORDERED: diphenhydrAMINE 50MG/ML VIAL (J1200) IV STA (05:42)
[2020-08-03] MEDS ORDERED: NS 1,000 ML IV ONE (05:45)
[2020-08-03] MEDS ORDERED: METOCLOPRAMIDE INJ 10MG/2ML VIAL (J2765 PER 1) IV ONE (05:45)
[2020-08-03] MEDS ORDERED: KETOROLAC 30 MG/ML 1ML VIAL IV ONE (05:45)
--- OUTSIDE RECORDS SUMMARY | 2020-08-03 06:04 | CCD ---
Author Author [facility] Organization [facility] Address Unknown Phone Unavailable Care Team Providers Care Balance Assembler Name Role Phone Tnoe MATA MD Unavailable Unavailable Tone MATA MD [...] RYAN PA Unavailable Unavailable Jumalon, M Ayaka [employer] Unavailable Unavailable Jumalon, M Ayaka [employer] Unavailable Unavailable Jumalon, M Ayaka [employer] Unavailable Unavailable Jumalon, M Ayaka [employer] Unavailable Unavailable Jumalon, M Ayaka [employer] Unavailable Unavailable Jumalon, M Ayaka [employer] Unavailable Unavailable Jumalon, M Ayaka [employer] Unavailable Unavailable Jumalon, M Ayaka [employer] Unavailable Unavailable Jumalon, M Ayaka [employer] Unavailable Unavailable Jumalon, M Ayaka [employer] Unavailable Unavailable Jumalon, M Ayaka [employer] Unavailable Unavailable Jumalon, M Ayaka [employer] Unavailable Unavailable Jumalon, M Ayaka [employer] Unavailable Unavailable Jumalon, M Ayaak [employer] Unavailable Unavailable Jumalon, M Ayaka [employer] Unavailable Unavailable Jumalon, M Ayaka [employer] Unavailable Unavailable Jumalon, M Ayaka [employer] Unavailable Unavailable Jumalon, M Ayaka [employer] Unavailable Unavailable Jumalon, M Ayaka [employer] Unavailable Unavailable Jumalon, M Ayaka [employer] Unavailable Unavailable Jumalon, M Ayaka [employer] Unavailable Unavailable Jumalon, M Ayaka [employer] Unavailable Unavailable Jumalon, M Ayaka [employer] Unavailable Unavailable Jumalon, M Ayaka [employer] Unavailable Unavailable Jumalon, M Ayaka [employer] Unavailable Unavailable Jumalon, M Ayaka [employer] Unavailable Unavailable Jumalon, M Ayaka [employer] Unavailable Unavailable Jumalon, M Ayaka [employer] Unavailable Unavailable Jostin FERNÁNDEZ DO Unavailable Unavailable Tone BARAJAS MD Unavailable Unavailable Tone BARAJAS MD Unavailable Unavailable Tone BARAJAS MD Unavailable Unavailable Tone BARAJAS MD Unavailable Unavailable Tone BARAJAS MD Unavailable Unavailable Tone BARAJAS MD Unavailable Unavailable oTne BARAJAS MD Unavailable Unavailable Tone BARAJAS MD [...] Unavailable Tone MATA MD Unavailable Unavailable Tone MTAA MD Unavailable Unavailable Tone MATA MD Unavailable [...] is protected by Article 27-F of the [facility] Public Health law. If you continue you may have access to information: Regarding HIV / AIDS; Provided by facilities licensed or operated by the [facility] Office of Mental Health; or Provided by the [facility] Office for People With Developmental Disabilities. If such information is present, then the following [facility] mandated warning applies: This information has been [...] law may result in a fine or fci sentence or both. A general authorization for the release of medical or other information is NOT sufficient authorization for further disc losure. Encounters Encounter Providers Location Date Indications Data Source(s ) Boo Escalante MD: [address], [address] [place] [address] [place], [place] [address], Ph. Attender: Boo Escalante MD [place] - [facility] 07/31/2020 12:00:00 AM EST [place] ([facility]) Ayaka Isaac, BALLISTIC TECHNICIAN: [address], [facility] [place] [address], Ph. Attender: Ayaka Isaac [facility] 07/22/2020 12:00:00 AM EST ATHE NA ([facility]) Ayaka Isaac, BALLISTIC TECHNICIAN: [address], [place] [address], Ph. Attender: Ayaka Isaac [facility] 07/22/2020 12:00:00 AM EST ATHE NA ([facility]) Outpatient Attender: Kun ALEMANeferrer: Kun Gupta MD 06/23/2020 08:51:32 AM EST [facility] Recurring Patient Attender: RYAN Ernandez: MYA CUEVAS MD 06/23/2020 08:22:01 AM EST [facility] Recurring Patient Attender: RYAN Ernandez: MYA CUEVAS MD 05/13/2020 02:51:41 PM EDT [facility] Recurring Patient Attender: RYAN Ernandez: MYA CUEVAS MD 05/13/2020 02:37:14 PM EDT [facility] Recurring Patient Attender: RYAN Ernandez: MYA CUEVAS MD 05/13/2020 02:31:30 PM EDT [facility] Ayaka Isaac, BALLISTIC TECHNICIAN: [address], [address], [place] [address], Ph. Attender: Ayaka Isaac [facility] - [facility] 05/05/2020 12:00:00 AM EDT ATHE NA ([facility]) Ayaka Isaac, BALLISTIC TECHNICIAN: [address], [address], [place] [address], Ph. Attender: Ayaka Isaac [facility] - [facility] 05/05/2020 12:00:00 AM EDT ATHE NA ([facility]) Ayaka Isaac, BALLISTIC TECHNICIAN: [address], [place] [address], Ph. Attender: Ayaka Isaac [facility] - [facility] 05/05/2020 12:00:00 AM EDT ATHE NA ([facility]) Boo Escalante MD: [address], [place] [address], Ph. Attender: Boo BRODERICK - [facility] 04/16/2020 12:00:00 AM EDT [place] ([facility]) Boo Escalante MD: [address], [address], [place] [address], Ph. Attender: Boo BRODERICK - [facility] 04/16/2020 12:00:00 AM EDT [place] ([facility]) Boo Escalante MD: [address], [place] [address], Ph. Attender: Boo BRODERICK - [facility] 04/16/2020 12:00:00 AM EDT [place] ([facility]) Boo Escalante MD: [address], [place] [address], Ph. Attender: Boo Escalante MD [place] - [facility] 04/16/2020 12:00:00 AM EDT [place] ([facility]) Ayaka Nick Marlin, BALLISTIC TECHNICIAN: [address], [address], [place] [address], Ph. Attender: Ayakatena Isaac [facility] - [facility] 04/09/2020 12:00:00 AM EDT ATHE NA ([facility]) Ayaka Manzanemayuri Isaac, BALLISTIC TECHNICIAN: [address], [address], [place] [address], Ph. Attender: Ayaka Isaac [facility] 04/09/2020 12:00:00 AM EDT ATHE NA ([facility]) Ayaka Nick Macysuleiman, BALLISTIC TECHNICIAN: [address], [place] [address], Ph. Attender: Ayaka Isaac [facility] 04/09/2020 12:00:00 AM EDT ATHE NA ([facility]) Ayaka Nick Marlin, BALLISTIC TECHNICIAN: [address], [address], [place] [address], Ph. Attender: Ayakatena Isaac [facility] - [facility] 04/09/2020 12:00:00 AM EDT ATHE NA ([facility]) Ayaka Isaac, BALLISTIC TECHNICIAN: [address], [address], [place] [address], Ph. Attender: Ayaka CARTER [place] - [facility] 04/09/2020 12:00:00 AM EDT ATHE NA ([facility]) Outpatient Attender: MARCELA GAONA 03/14/2020 10:10:00 AM EDT [facility] Boo Esaclante MD: [address], [place] [address], Ph. Attender: Boo Escalante MD [place] - [facility] 03/12/2020 12:00:00 AM EDT [place] ([facility]) Boo Escalante MD: [address], [place] [address], Ph. Attender: Boo Escalante MD [place] - [facility] 03/12/2020 12:00:00 AM EDT [place] ([facility]) Boo Escalante MD: [address], [address] [place], [place] [address], Ph. Attender: Boo BRODERICK - [facility] 03/12/2020 12:00:00 AM EDT [place] ([facility]) Boo Escalante MD: [address], [place] [address], Ph. Attender: Boo BRODERICK - [facility] 03/12/2020 12:00:00 AM EDT [place] ([facility]) Boo Escalante MD: [address], [place] [address], Ph. Attender: Boo BRODERICK - [facility] 03/12/2020 12:00:00 AM EDT [place] ([facility]) Boo Escalante MD: [address], [address], [place] [address], Ph. Attender: Boo Escalante MD [place] - [facility] 03/12/2020 12:00:00 AM EDT [place] ([facility]) Ayaka Isaac, BALLISTIC TECHNICIAN: [address], [address], [place] [address], Ph. Attender: Ayaka sIaac [facility] - [facility] 03/06/2020 12:00:00 AM EDT ATHE NA ([facility]) Ayaka Isaac, BALLISTIC TECHNICIAN: [address], [place] [address], Ph. Attender: Ayaka Isaac [facility] - [facility] 03/06/2020 12:00:00 AM EDT ATHE NA ([facility]) Ayaka Isaac, BALLISTIC TECHNICIAN: [address], [address], [place] [address], Ph. Attender: [facility]aka [facility] 03/06/2020 12:00:00 AM EDT ATHE NA ([facility]) Ayaka Isaac, BALLISTIC TECHNICIAN: [address], [address], [place] [address], Ph. Attender: Ayaka Isaac [facility] 03/06/2020 12:00:00 AM EDT ATHE NA ([facility]) Ayaka Isaac, BALLISTIC TECHNICIAN: [address], [place] [address], Ph. Attender: Ayaka Isaac [facility] 03/06/2020 12:00:00 AM EDT ATHE NA ([facility]) Ayaka Isaac, BALLISTIC TECHNICIAN: [address], [address], [place] [address], Ph. Attender: Ayaka Isaac [facility] - [facility] 03/06/2020 12:00:00 AM EDT ATHE NA ([facility]) Ayaka Isaac, BALLISTIC TECHNICIAN: [address], [address], [place] [address], Ph. Attender: Ayaka Isaac [facility] - [facility] 03/06/2020 12:00:00 AM EDT ATHGail NA ([facility]) Boo Escalante MD: [address], [address], [place] [address], Ph. Attender: Boo BRODERICK - [facility] 02/18/2020 12:00:00 AM EDT [place] ([facility]) Boo Escalante MD: [address], [address], [place] [address], Ph. Attender: Boo BRODERICK - [facility] 02/18/2020 12:00:00 AM EDT [place] ([facility]) Boo Escalante MD: [address], [address], [place] [address], Ph. Attender: Boo BRODERICK - [facility] 02/18/2020 12:00:00 AM EDT [place] ([facility]) Boo Escalante MD: [address], [address], [place] [address], Ph. Attender: Boo BRODERICK - [facility] 02/18/2020 12:00:00 AM EDT [place] ([facility]) Boo Escalante MD: [address], [address], [place] [address], Ph. Attender: Boo Escalante MD [place] - [facility] 02/18/2020 12:00:00 AM EDT [place] ([facility]) Boo Escalante MD: [address], [address], [place] [address], Ph. Attender: Boo Escalante MD [place] - [facility] 02/18/2020 12:00:00 AM EDT [place] ([facility]) Boo Escalante MD: [address], [address], [place] [address], Ph. Attender: Boo BRODERICK - [facility] 02/18/2020 12:00:00 AM EDT [place] ([facility]) Boo Escalante MD: [address], [address], [place] [address], Ph. Attender: Boo BRODERICK - [facility] 02/18/2020 12:00:00 AM EDT [place] ([facility]) Boo Escalante MD: [address], [address], [place] [address], Ph. Attender: Boo Escalante MD [place] - [facility] 02/18/2020 12:00:00 AM EDT [place] ([facility]) Ayaka Isaac, BALLISTIC TECHNICIAN: [address], [address], [place] [address], Ph. Attender: Ayaka Isaac [facility] - [facility] 02/07/2020 12:00:00 AM EDT ATHE NA ([facility]) Ayaka Isaac, BALLISTIC TECHNICIAN: [address], [place] [address], Ph. Attender: Ayaka Isaac [facility] - [facility] 02/07/2020 12:00:00 AM EDT ATHE NA ([facility]) Ayaka Isaac, BALLISTIC TECHNICIAN: [address], [place] [address], Ph. Attender: Ayaka Isaac [facility] - [facility] 02/07/2020 12:00:00 AM EDT ATHE NA ([facility]) Ayaka Isaac, BALLISTIC TECHNICIAN: [address], [place] [address], Ph. Attender: Ayaka Isaac [facility] - [facility] 02/07/2020 12:00:00 AM EDT ATHE NA ([facility]) Ayaka Isaac, BALLISTIC TECHNICIAN: [address], [place] [address], Ph. Attender: Ayaka Isaac [facility] - [facility] 02/07/2020 12:00:00 AM EDT ATHE NA ([facility]) Ayaka Isaac, BALLISTIC TECHNICIAN: [address], [place] [address], Ph. Attender: Ayaka Isaac [facility] - [facility] 02/07/2020 12:00:00 AM EDT ATHE NA ([facility]) Ayaka Nick Macyjeremiahaiden, BALLISTIC TECHNICIAN: [address], [place] [address], Ph. Attender: Ayaka Isaac [facility] 02/07/2020 12:00:00 AM EDT ATHE NA ([facility]) Ayaka Isaac, BALLISTIC TECHNICIAN: [address], [place] [address], Ph. Attender: Ayaka Isaac [facility] 02/07/2020 12:00:00 AM EDT ATHE NA ([facility]) Ayaka Isaac, BALLISTIC TECHNICIAN: [address], [facility] [place] [address], Ph. Attender: Ayaka Isaac [facility] 02/07/2020 12:00:00 AM EDT ATHE NA ([facility]) Ayaka Isaac, BALLISTIC TECHNICIAN: [address], [place] [address], Ph. Attender: Ayaka Isaac [facility] 02/07/2020 12:00:00 AM EDT ATHE NA ([facility]) Outpatient Attender: Kun Gupta MDReferrer: MYA MORA MD 02/04/2020 11:11:09 AM EDT [facility] Ayaka Isaac, BALLISTIC TECHNICIAN: [address], [place] [address], Ph. Attender: Ayaka Isaac [facility] 02/01/2020 12:00:00 AM EDT ATHE NA ([facility]) Ayaka Isaac, BALLISTIC TECHNICIAN: [address], [place] [address], Ph. Attender: Ayaka Isaac [facility] - [facility] 02/01/2020 12:00:00 AM EDT ATHE NA ([facility]) Ayaka Isaac, BALLISTIC TECHNICIAN: [address], [place] [address], Ph. Attender: Ayaka Isaac [facility] - [facility] 02/01/2020 12:00:00 AM EDT ATHE NA ([facility]) Ayaka Isaac, BALLISTIC TECHNICIAN: [address], [place] [address], Ph. Attender: Ayaka Isaac [facility] - [facility] 02/01/2020 12:00:00 AM EDT ATHE NA ([facility]) Ayaka Isaac, BALLISTIC TECHNICIAN: [address], [place] [address], Ph. Attender: Ayaka Isaac [facility] - [facility] 02/01/2020 12:00:00 AM EDT ATHE NA ([facility]) Ayaka Ericlynne Macysuleiman, BALLISTIC TECHNICIAN: [address], [place] [address], Ph. Attender: Ayaka Isaac [facility] - [facility] 02/01/2020 12:00:00 AM EDT ATHE NA ([facility]) Ayaka Nick Macysuleiman, BALLISTIC TECHNICIAN: [address], [place] [address], Ph. Attender: Ayaka Dayaiden [facility] - [facility] 02/01/2020 12:00:00 AM EDT ATHE NA ([facility]) Ayaka Isaac, BALLISTIC TECHNICIAN: [address], [address], [place] [address], Ph. Attender: Ayaka Isaac [facility] - [facility] 02/01/2020 12:00:00 AM EDT ATHE NA ([facility]) Ayaka Isaac, BALLISTIC TECHNICIAN: [address], [address], [place] [address], Ph. Attender: Ayaka Isaac [facility] - [facility] 02/01/2020 12:00:00 AM EDT ATHE NA ([facility]) Ayaka Isaac, BALLISTIC TECHNICIAN: [address], [address], [place] [address], Ph. Attender: Ayaka Isaac [facility] 02/01/2020 12:00:00 AM EDT ATHE NA ([facility]) Ayaka Isaac, BALLISTIC TECHNICIAN: [address], [address], [place] [address], Ph. Attender: Ayaka Isaac [facility] - [facility] 02/01/2020 12:00:00 AM EDT ATHE NA ([facility]) Boo Escalante MD: [address], [address], [place] [address], Ph. Attender: Boo Escalante MD [place] - [facility] 01/16/2020 12:00:00 AM EDT [place] ([facility]) Boo Escalante MD: [address], [address], [place] [address], Ph. Attender: Boo Escalante MD [place] - [facility] 01/16/2020 12:00:00 AM EDT [place] ([facility]) Boo Escalante MD: [address]59 [address], [address], [place] [address], Ph. Attender: Boo BRODERICK - [facility] 01/16/2020 12:00:00 AM EDT [place] ([facility]) Boo Escalante MD: [address]87 [address], [address], [place] [address], Ph. Attender: Boo BRODERICK - [facility] 01/16/2020 12:00:00 AM EDT [place] ([facility]) Boo Escalante MD: [address]898 [address], [address], [place] [address], Ph. Attender: Boo BRODERICK - [facility] 01/16/2020 12:00:00 AM EDT [place] ([facility]) Boo Escalante MD: [address]23 [address], [address], [place] [address], Ph. Attender: Boo BRODERICK - [facility] 01/16/2020 12:00:00 AM EDT [place] ([facility]) Boo Escalante MD: [address]56 [address], [address], [place] [address], Ph. Attender: Boo BRODERICK - [facility] 01/16/2020 12:00:00 AM EDT [place] ([facility]) Boo Escalante MD: 75338 [address], [address], [place] [address], Ph. Attender: Boo BRODERICK - [facility] 01/16/2020 12:00:00 AM EDT [place] ([facility]) Boo Escalante MD: [address]698 [address], [address], [place] [address], Ph. Attender: Boo BRODERICK - [facility] 01/16/2020 12:00:00 AM EDT [place] ([facility]) Boo Escalante MD: [address]37 [address], [address], [place] [address], Ph. Attender: Boo BRODERICK - [facility] 01/16/2020 12:00:00 AM EDT [place] ([facility]) Boo Escalante MD: [address]3758 [address], [address], [place] [address], Ph. Attender: Boo BRODERICK - [facility] 01/16/2020 12:00:00 AM EDT [place] ([facility]) Boo Escalante MD: [address]223 [address], [address], [place] [address], Ph. Attender: Boo BRODERICK - [facility] 01/16/2020 12:00:00 AM EDT [place] ([facility]) Boo Escalante MD: [address]91 [address], [address], [place] [address], Ph. [phone] Attender: Boo BRODERICK - [facility] 01/11/2020 12:00:00 AM EDT [place] ([facility]) Boo Escalante MD: [address]95 [address], [address], [place] [address], Ph. [phone] Attender: Boo BRODERICK - [facility] 01/11/2020 12:00:00 AM EDT [place] ([facility]) Boo Escalante MD: [address]16 [address], [address], [place] [address], Ph. [phone] Attender: Boo Escalante MD [place] - [facility] 01/11/2020 12:00:00 AM EDT [place] ([facility]) Boo Escalante MD: [address], [address], [place] [address], Ph. [phone] Attender: oBo Escalante MD [place] - [facility] 01/11/2020 12:00:00 AM EDT [place] ([facility] [facility]) Boo Escalante MD: [address], [address], [place] [address], Ph. [phone] Attender: Boo BRODERICK - [facility] 01/11/2020 12:00:00 AM EDT FROILAN ([facility]) Boo Escalante MD: [address], [address], [place] [address], Ph. [phone] Attender: Boo BRODERICK - [facility] 01/11/2020 12:00:00 AM EDT FROILAN ([facility]) Boo Escalante MD: [address], [address], [place] [address], Ph. [phone] Attender: Boo BRODERICK - [facility] 01/11/2020 12:00:00 AM EDT FROILAN ([facility]) Boo Escalante MD: [address], [address], [place] [address], Ph. [phone] Attender: Boo BRODERICK - [facility] 01/11/2020 12:00:00 AM EDT FROILAN ([facility]) Boo Escalante MD: [address], [address], [place] [address], Ph. [phone] Attender: Boo Escalante MD [place] - [facility] 01/11/2020 12:00:00 AM EDT FROILAN ([facility]) Boo Escalante MD: [address], [address], [place] [address], Ph. [phone] Attender: Boo Escalante MD [place] - [facility] 01/11/2020 12:00:00 AM EDT FROILAN ([facility]) Boo Escalante MD: [address], [address], [place] [address], Ph. [phone] Attender: Boo Escalante MD [place] - [facility] 01/11/2020 12:00:00 AM EDT FROILAN ([facility]) Boo Escalante MD: [address], [address], [place] [address], Ph. [phone] Attender: Boo Escalante MD [place] - [facility] 01/11/2020 12:00:00 AM EDT FROILAN ([facility]) Boo Escalante MD: [address], [address], [place] [address], Ph. [phone] Attender: Boo BRODERICK - [facility] 01/11/2020 12:00:00 AM EDT FROILAN ([facility]) Boo Escalante MD: [address], [address], [place] [address], Ph. Attender: Boo BRODERICK - [facility] 01/03/2020 12:00:00 AM EDT FROILAN ([facility]) Boo Escalante MD: [address], [address], [place] [address], Ph. Attender: Boo Escalante MD [place] - [facility] 01/03/2020 12:00:00 AM EDT FROILAN ([facility]) Boo Escalante MD: [address], [address], [place] [address], Ph. Attender: Boo BRODERICK - [facility] 01/03/2020 12:00:00 AM EDT FROILAN ([facility]) Boo Escalante MD: [address], [address], [place] [address], Ph. Attender: Boo Escalante MD [place] - [facility] 01/03/2020 12:00:00 AM EDT FROILAN ([facility]) Boo Escalante MD: [address], [address], [place] [address], Ph. Attender: Boo BRODERICK - [facility] 01/03/2020 12:00:00 AM EDT FROILAN ([facility]) Boo Escalante MD: [address], [address], [place] [address], Ph. Attender: Boo BRODERICK - [facility] 01/03/2020 12:00:00 AM EDT FROILAN ([facility]) Boo Escalante MD: [address], [address], [place] [address], Ph. Attender: Boo BRODERICK - [facility] 01/03/2020 12:00:00 AM EDT FROILAN ([facility]) Boo Escalante MD: [address], [address], [place] [address], Ph. Attender: Boo BRODERICK - [facility] 01/03/2020 12:00:00 AM EDT FROILAN ([facility]) Boo Escalante MD: [address], [address], [place] [address], Ph. Attender: Boo BRODERICK - [facility] 01/03/2020 12:00:00 AM EDT FROILAN ([facility]) Boo Escalante MD: [address], [address], [place] [address], Ph. Attender: Boo BRODERICK - [facility] 01/03/2020 12:00:00 AM EDT FROILAN ([facility]) Boo Escalante MD: [address], [address], [place] [address], Ph. Attender: Boo BRODERICK - [facility] 01/03/2020 12:00:00 AM EDT FROILAN ([facility]) Boo Escalante MD: [address], [address], [place] [address], Ph. Attender: Boo BRODERICK - [facility] 01/03/2020 12:00:00 AM EDT FROILAN ([facility]) Boo Escalante MD: [address], [address], [place] [address], Ph. Attender: Boo BRODERICK - [facility] 01/03/2020 12:00:00 AM EDT FROILAN ([facility]) Boo Escalante MD: [address], [address], [place] [address], Ph. Attender: Boo Escalante MD [place] - [facility] 01/03/2020 12:00:00 AM EDT FROILAN ([facility]) Outpatient Attender: RYAN Ernandez: MYA RODRIGUES MD 01/02/2020 11:24:42 AM EDT [facility] Recurring Patient Attender: RYAN Sagastumeer: MYA CUEVAS MD 01/01/2020 07:58:22 AM EDT [facility] Boo Escalante MD: [address], [address], [place] [address], Ph. [phone] Attender: Boo BRODERICK - [facility] 12/31/2019 12:00:00 AM EDT FROILAN ([facility]) Boo Escalante MD: [address], [address], [place] [address], Ph. [phone] Attender: Boo BRODERICK - [facility] 12/31/2019 12:00:00 AM EDT FROILAN ([facility]) Boo Escalante MD: [address], [address], [place] [address], Ph. [phone] Attender: Boo Escalante MD [place] - [facility] 12/31/2019 12:00:00 AM EDT FROILAN ([facility]) Boo Escalante MD: [address], [address], [place] [address], Ph. [phone] Attender: Boo BRODERICK - [facility] 12/31/2019 12:00:00 AM EDT FROILAN ([facility]) Boo Escalante MD: [address], [address], [place] [address], Ph. [phone] Attender: Boo BRODERICK - [facility] 12/31/2019 12:00:00 AM EDT FROILAN ([facility]) Boo Escalante MD: [address], [address], [place] [address], Ph. [phone] Attender: Boo Escalante MD [place] - [facility] - [facility] 12/31/2019 12:00:00 AM EDT FROILAN ([facility]) Boo Escalante MD: [address], [address], [place] [address], Ph. [phone] Attender: Boo Escalante MD [place] - [facility] 12/31/2019 12:00:00 AM EDT FROILAN ([facility]) Boo Escalante MD: [address], [address], [place] [address], Ph. [phone] Attender: Boo Escalante MD [place] - [facility] 12/31/2019 12:00:00 AM EDT FROILAN ([facility]) Boo Escalante MD: [address], [address], [place] [address], Ph. [phone] Attender: Boo Escalante MD [place] - [facility] - [facility] 12/31/2019 12:00:00 AM EDT FROILAN ([facility]) Boo Escalante MD: [address], [address], [place] [address], Ph. [phone] Attender: Boo Escalante MD [place] - [facility] 12/31/2019 12:00:00 AM EDT FROILAN ([facility]) Boo Escalante MD: [address], [address], [place] [address], Ph. [phone] Attender: Boo Escalante MD [place] - [facility] 12/31/2019 12:00:00 AM EDT FROILAN ([facility]) Boo Escalante MD: [address], [address], [place] [address], Ph. [phone] Attender: Boo Escalante MD [place] - [facility] 12/31/2019 12:00:00 AM EDT FROILAN ([facility]) Boo Escalante MD: [address], [address], [place] [address], Ph. [phone] Attender: Boo Escalante MD [place] - [facility] 12/31/2019 12:00:00 AM EDT FROILAN ([facility]) Boo Escalante MD: [address], [address], [place] [address], Ph. [phone] Attender: Boo Escalante MD [place] - [facility] 12/31/2019 12:00:00 AM EDT FROILAN ([facility]) Boo Escalante MD: [address], [address], [place] [address], Ph. [phone] Attender: Boo Escalante MD [place] - [facility] 12/31/2019 12:00:00 AM EDT FROILAN ([facility]) [place] ( in Healthcare facility) Attender: Chidi Gupta MDAdmitter: Kun Gupta MD 12/18/2019 05:12:00 AM EDT - 12/18/2019 05:29:00 PM EDT [facility] Outpatient Attender: Kun Gupta MDAdmitter: Kun Gupta MD 12/18/2019 05:12:00 AM EDT - 12/18/2019 05:29:00 PM EDT FAILED ORTHOPEDIC IMPLANT, INITIAL ENCOUNTER CERVICAL MYELOP [facility] FAILED ORTHOPEDIC IMPLANT, INITIAL ENCOU NTER CERVICAL MYELOP Patient discharged. 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 Attender: Boo BRODERICK - [facility] 12/06/2019 12:00:00 AM EDT FR[place]ILAN ([facility]) Boo Escalante MD: [address], [place] [address], Ph. Attender: Boo BRODERICK - [facility] 12/06/2019 12:00:00 AM EDT FROILAN ([facility]) Boo Escalante MD: [address], [place] [address], Ph. Attender: Boo BRODERICK - [facility] 12/06/2019 12:00:00 AM EDT FR[place]ILAN ([facility]) Boo Escalante MD: [address], [address], [place], [place] [address], Ph. Attender: Boo BRODERICK - [facility] 12/06/2019 12:00:00 AM EDT FR[place]ILAN ([facility]) Boo Escalante MD: [address], [address], [place] [address], Ph. Attender: Boo BRODERICK - [facility] 12/06/2019 12:00:00 AM EDT FR[place]AN ([facility]) Boo Escalante MD: [address], [address], [place] [address], Ph. Attender: Boo BRODERICK - [facility] 12/06/2019 12:00:00 AM EDT [place] ([facility]) Boo Escalante MD: [address], [address], [place] [address], Ph. Attender: Boo BRODERICK - [facility] 12/06/2019 12:00:00 AM EDT [place] ([facility]) Boo Escalante MD: [address], [address], [place] [address], Ph. Attender: Boo BRODERICK - [facility] 12/06/2019 12:00:00 AM EDT [place] ([facility]) Boo Escalante MD: [address], [address], [place] [address], Ph. Attender: Boo BRODERICK - [facility] 12/06/2019 12:00:00 AM EDT FR[place] ([facility]) Boo Escalante MD: [address], [address], [place] [address], Ph. Attender: Boo BRODERICK - [facility] 12/06/2019 12:00:00 AM EDT FR[place] ([facility]) Boo Escalante MD: [address], [address], [place] [address], Ph. Attender: Boo Escalante MD [place] - [facility] 12/06/2019 12:00:00 AM EDT FR[place] ([facility]) Boo Escalante MD: [address], [address], [place] [address], Ph. Attender: Boo BRODERICK - [facility] 12/06/2019 12:00:00 AM EDT FR[place] ([facility]) Boo Escalante MD: [address], [address], [place] [address], Ph. Attender: Boo BRODERICK - [facility] 12/06/2019 12:00:00 AM EDT FR[place]ILAN ([facility]) Boo Escalante MD: [address], [address], [place] [address], Ph. Attender: Boo BRODERICK - [facility] 12/06/2019 12:00:00 AM EDT FR[place]ILAN ([facility]) Boo Escalante MD: [address], [address], [place] [address], Ph. Attender: Boo BRODERICK - [facility] 12/06/2019 12:00:00 AM EDT FR[place]AN ([facility]) Boo Escalante MD: [address], [address], [place] [address], Ph. Attender: Boo BRODERICK - [facility] 12/06/2019 12:00:00 AM EDT FR[place]AN ([facility]) Boo Escalante MD: [address], [address], [place] [address], Ph. Attender: Boo BRODERICK - [facility] 12/03/2019 12:00:00 AM EDT FR[place] ([facility]) Boo Escalante MD: [address], [address], [place] [address], Ph. Attender: Boo BRODERICK - [facility] 12/03/2019 12:00:00 AM EDT FR[place] ([facility]) Boo Escalante MD: [address], [address], [place] [address], Ph. Attender: Boo BRODERICK - [facility] 12/03/2019 12:00:00 AM EDT FR[place]IL[place] ([facility]) Boo Escalante MD: [address], [address], [place] [address], Ph. Attender: Boo BRODERICK - [facility] 12/03/2019 12:00:00 AM EDT FR[place]ILAN ([facility]) Boo Escalante MD: [address], [address], [place] [address], Ph. Attender: Boo BRODERICK - [facility] 12/03/2019 12:00:00 AM EDT FR[place]ILAN ([facility]) Boo Escalante MD: [address], [address], [place] [address], Ph. Attender: Boo BRODERICK - [facility] 12/03/2019 12:00:00 AM EDT [place] ([facility]) Boo Escalante MD: [address], [address], [place] [address], Ph. Attender: Boo BRODERICK - [facility] 12/03/2019 12:00:00 AM EDT FR[place]ILAN ([facility]) Boo Escalante MD: [address]82 [address], [address], [place] [address], Ph. Attender: Boo BRODERICK - [facility] 12/03/2019 12:00:00 AM EDT FR[place]ILAN ([facility]) Boo Escalante MD: [address]36 [address], [address], [place] [address], Ph. Attender: Boo BRODERICK - [facility] 12/03/2019 12:00:00 AM EDT FR[place]ILAN ([facility]) Boo Escalante MD: [address], [address], [place] [address], Ph. Attender: Boo BRODERICK - [facility] 12/03/2019 12:00:00 AM EDT FR[place]ILAN ([facility]) Boo Escalante MD: [address]17 [address], [address], [place] [address], Ph. Attender: Boo BRODERICK - [facility] 12/03/2019 12:00:00 AM EDT [place] ([facility]) Boo Escalante MD: [address], [address], [place] [address], Ph. Attender: Boo BRODERICK - [facility] 12/03/2019 12:00:00 AM EDT [place] ([facility]) Boo Escalante MD: [address], [address], [place] [address], Ph. Attender: Boo BRODERICK - [facility] 12/03/2019 12:00:00 AM EDT [place] ([facility]) Boo Escalante MD: [address], [address], [place] [address], Ph. Attender: Boo Escalante MD [place] - [facility] 12/03/2019 12:00:00 AM EDT [place] ([facility]) Boo Escalante MD: [address]98 [address], [address], [place] [address], Ph. Attender: Boo Escalante MD [place] - [facility] 12/03/2019 12:00:00 AM EDT [place] ([facility]) Boo Escalante MD: [address], [address], [place] [address], Ph. Attender: Boo Escalante MD [place] - [facility] 12/03/2019 12:00:00 AM EDT [place] ([facility]) Boo Escalante MD: [address], [address], [place] [address], Ph. Attender: Boo Escalante MD [place] - [facility] 12/03/2019 12:00:00 AM EDT FR[place] ([facility]) Ayaka Isaac, BALLISTIC TECHNICIAN: [address], [address], [place] [address], Ph. Attender: Ayaka CARTER [place] - [facility] 11/19/2019 12:00:00 AM EDT ATHGail HERR ([facility]) Ayaka Isaac, BALLISTIC TECHNICIAN: [address], [address], [place] [address], Ph. Attender: Ayaka Isaac [facility] - [facility] 11/19/2019 12:00:00 AM EDT ATHE NA ([facility]) Ayaka Isaac, BALLISTIC TECHNICIAN: [address], [facility] [place] [address], Ph. Attender: Ayaka Isaac [facility] - [facility] 11/19/2019 12:00:00 AM EDT ATHE NA ([facility]) Ayaka Isaac, BALLISTIC TECHNICIAN: [address], [place] [address], Ph. Attender: Ayaka Isaac [facility] - [facility] 11/19/2019 12:00:00 AM EDT ATHE NA ([facility]) Ayaka Isaac, BALLISTIC TECHNICIAN: [address], [place] [address], Ph. Attender: Ayaka Isaac [facility] 11/19/2019 12:00:00 AM EDT ATHE NA ([facility]) Ayaka Isaac, BALLISTIC TECHNICIAN: [address], [facility] [place] [address], Ph. Attender: Ayaka Isaac [facility] - [facility] 11/19/2019 12:00:00 AM EDT ATHE NA ([facility]) Ayaka Isaac, BALLISTIC TECHNICIAN: [address], [facility] [place] [address], Ph. Attender: Ayaka Isaac [facility] - [facility] 11/19/2019 12:00:00 AM EDT ATHE NA ([facility]) Ayaka Nick Marlin, BALLISTIC TECHNICIAN: [address], [address], [place] [address], Ph. Attender: Ayaka Isaac [facility] - [facility] 11/19/2019 12:00:00 AM EDT ATHE NA ([facility]) Ayaka Isaac, BALLISTIC TECHNICIAN: [address], [address], [place] [address], Ph. Attender: Aykaa Isaac [facility] - [facility] 11/19/2019 12:00:00 AM EDT ATHE NA ([facility]) Ayaka Isaac, BALLISTIC TECHNICIAN: [address], [place] [address], Ph. Attender: Ayaka Isaac [facility] - [facility] 11/19/2019 12:00:00 AM EDT ATHE NA ([facility]) Ayaka Isaac, BALLISTIC TECHNICIAN: [address], [address], [place] [address], Ph. Attender: Ayaka Isaac [facility] - [facility] 11/19/2019 12:00:00 AM EDT ATHE NA ([facility]) Ayaka Isaac, BALLISTIC TECHNICIAN: [address], [address], [place] [address], Ph. Attender: Ayaka Isaac [facility] - [facility] 11/19/2019 12:00:00 AM EDT ATHE NA ([facility]) Ayaka Isaac, BALLISTIC TECHNICIAN: [address], [address], [place] [address], Ph. Attender: Ayaka Macyjeremiahaiden [facility] - [facility] 11/19/2019 12:00:00 AM EDT ATHE NA ([facility]) Ayaka Isaac, BALLISTIC TECHNICIAN: [address], [place] [address], Ph. Attender: Ayaka Isaac [facility] - [facility] 11/19/2019 12:00:00 AM EDT ATHE NA ([facility]) Ayaka Isaac, BALLISTIC TECHNICIAN: [address], [place] [address], Ph. Attender: Ayaka Isaac [facility] 11/19/2019 12:00:00 AM EDT ATHE NA ([facility]) Ayaka Isaac, BALLISTIC TECHNICIAN: [address], [place] [address], Ph. Attender: Ayaka Isaac [facility] - [facility] 11/19/2019 12:00:00 AM EDT ATHE NA ([facility]) Ayaka Isaac, BALLISTIC TECHNICIAN: [address], [place] [address], Ph. Attender: Ayaka Isaac [facility] 11/19/2019 12:00:00 AM EDT ATHE NA ([facility]) Ayaka Isaac, BALLISTIC TECHNICIAN: [address], [place] [address], Ph. Attender: Ayaka Isaac [facility] 11/19/2019 12:00:00 AM EDT ATHE NA ([facility]) [facility] [address] [place] [address] 11/14/2019 12:00:00 AM EDT eCW1 ([facility]) Outpatient Attender: Jared Martinez Physical Therapy 10/25/2019 10:00:0 0 AM EDT MEDENT ([facility]) Boo Escalante MD: [address], [address], [place] [address], Ph. Attender: Boo BRODERICK - [facility] 10/02/2019 12:00:00 AM EDT FROILAN ([facility]) Boo Escalante MD: [address], [address], [place] [address], Ph. Attender: Boo BRODERICK - [facility] 10/02/2019 12:00:00 AM EDT FROILAN ([facility]) Boo Escalante MD: [address], [address], [place] [address], Ph. Attender: Boo BRODERICK - [facility] 10/02/2019 12:00:00 AM EDT FROILAN ([facility]) Boo Escalante MD: [address], [address], [place] [address], Ph. Attender: Boo BRODERICK - [facility] 10/02/2019 12:00:00 AM EDT FROILAN ([facility]) Boo Escalante MD: [address], [address], [place] [address], Ph. Attender: Boo BRODERICK - [facility] 10/02/2019 12:00:00 AM EDT FROILAN ([facility]) Boo Escalante MD: [address], [address], [place] [address], Ph. Attender: Boo BRODERICK - [facility] 10/02/2019 12:00:00 AM EDT FROILAN ([facility]) Boo Escalante MD: [address], [address], [place] [address], Ph. Attender: Boo BRODERICK - [facility] 10/02/2019 12:00:00 AM EDT FROILAN ([facility]) Boo Escalante MD: [address], [address], [place] [address], Ph. Attender: Boo BRODERICK - [facility] 10/02/2019 12:00:00 AM EDT FROILAN ([facility]) Boo Escalante MD: [address], [address], [place] [address], Ph. Attender: Boo BRODERICK - [facility] 10/02/2019 12:00:00 AM EDT FROILAN ([facility]) Boo Escalante MD: [address], [address], [place] [address], Ph. Attender: Boo BRODERICK - [facility] 10/02/2019 12:00:00 AM EDT FROILAN ([facility]) Boo Escalante MD: [address], [address], [place] [address], Ph. Attender: Boo BRODERICK - [facility] 10/02/2019 12:00:00 AM EDT FROILAN ([facility]) Boo Escalante MD: [address], [address], [place] [address], Ph. Attender: Boo Escalante MD [place] - [facility] 10/02/2019 12:00:00 AM EDT FROILAN ([facility]) Boo Escalante MD: [address], [address], [place] [address], Ph. Attender: Boo BRODERICK - [facility] 10/02/2019 12:00:00 AM EDT FROILAN ([facility]) Boo Escalante MD: [address], [address], [place] [address], Ph. Attender: Boo BRODERICK - [facility] 10/02/2019 12:00:00 AM EDT FROILAN ([facility]) Boo Escalante MD: [address], [address], [place] [address], Ph. Attender: Boo BRODERICK - [facility] 10/02/2019 12:00:00 AM EDT FROILAN ([facility]) Boo Escalante MD: [address], [address], [place] [address], Ph. Attender: Boo BRODERICK - [facility] 10/02/2019 12:00:00 AM EDT FROILAN ([facility]) Boo Escalante MD: [address], [address], [place] [address], Ph. Attender: Boo BRODERICK - [facility] 10/02/2019 12:00:00 AM EDT FROILAN ([facility]) Boo Escalante MD: [address], [address], [place] [address], Ph. Attender: Boo Escalante MD [place] - [facility] 10/02/2019 12:00:00 AM EDT FROILAN ([facility]) Boo Escalante MD: [address] [address], [address], [place] [address], Ph. Attender: Boo Escalante MD [place] - [facility] 10/02/2019 12:00:00 AM EDT FROILAN ([facility]) Outpatient Attender: RYAN VALLES PAReferrer: MYA RODRIGUES MD 09/12/2019 07:53:39 AM EST [facility] Outpatient 09/11/2019 08:53:00 AM EST [facility] Radiology Imaging Recurring Patient Attender: MYA MATA MDReferrer: MYA MATA MD 08/09/2019 07:21:45 AM EST [facility] [place] ( in Healthcare facility) Attender: Chidi Gupta MDAdmitter: Kun Gupta MD 08/02/2019 10:30:00 AM EST [facility] Outpatient Attender: SHONDA FERNÁNDEZ DO 07/25/2019 10:57:12 AM EST [facility] Outpatient Attender: Kun Gupta MD 07/25/2019 09:43:00 A M EST [facility] PRETESTING Recurring Patient Attender: MYA MATA MDReferrer: MYA MATA MD 07/10/2019 07:37:22 AM EST [facility] Outpatient Attender: Kun Gupta MDReferrer: MYA MORA MD 07/06/2019 03:23:05 PM EST [facility] Outpatient Attender: SANAM BARAJAS MDAt tender: MYA MATA MDReferrer: MYA MATA MD [email or web address].CT 06/26/2019 01:49:00 PM EST - 06/26/2019 11:59:00 PM EST [facility] Patient discharged. Outpatient Attender: YMA MATA MD 06/20/2019 09:05 :02 PM EST [facility] Outpatient Attender: MYA MATA MD 06/20/2019 08:43 :53 PM EST [facility] Outpatient Attender: MYA MATA MD 06/20/2019 08:07 :51 PM EST [facility] Outpatient Attender: MYA MATA MD 06/20/2019 08:07 :51 PM EST [facility] Outpatient Attender: MYA MATA MD 06/20/2019 07:54 :52 PM EST [facility] Outpatient Attender: MYA MATA MDReferrer: MYA MATA MD MOB-MOB.PAT 06/20/2019 12:00:00 AM EST - 06/20/2019 03:24:41 PM EST [facility] Outpatient Attender: MICHAEL YEAdmitter: MICHAEL YE ES1 -SJ.CVAU 06/13/2019 10:02:25 AM EST - 06/26/2019 04:15:00 PM EST [facility] Patient discharged. Recurring Patient Attender: MYA MATA MDReferrer: MYA MATA MD 06/08/2019 02:14:46 PM EST [facility] Medications Medication Brand Name Start Date Product Form Dose Route Admi nistrative Instructions Pharmacy Instructions Status Indications Reaction Description Data Source(s) iopamidol (ISOVUE-M) 41 % intrathecal injection 20 mL [id number] 06/26/2019 02:19:47 PM EST 20 mL Intrathecal active 20 m L, Intrathecal, Once in imaging, contrast, Starting 06/26/19 at 1419, For 1 dose [facility] Medication administered onsite iopamidol (ISOVUE-M) 41 % intrathecal injection 20 mL [id number] 06/26/2019 02:08:40 PM EST 20 mL Intrathecal completed 20 mL, Intrathecal, Once in imaging, contrast, Starting 06/26/19 at 1408, For 1 dose [facility] Medication administered onsite Acetaminophen 325 MG Oral Tablet acetaminophen (TYLENO L) 325 MG tablet 650 mg acetaminophen (TYLENOL) 325 MG tablet 650 mg 06/26/2019 02:05:30 PM EST 650 mg Oral active 650 mg, Or al, Every 4 hours PRN, mild pain (1-3), Starting 06/26/19 at 1405, Post-op
"Maximum dose of acetaminophen is 4,000 mg from all sources in 24 hours."
[facility] Medication administered onsite INCOMPLETE HOME MEDICATION FOR INFORMATIONAL PURPOSES ONLY aborted Medication for headaches but mesfin francois doesn't recall name [facility] Insurance Providers Payer name Policy type / Coverage type Policy ID Covered alliance party ID Covered alliance party's relationship to bell Policy Bell Plan Information EAST ACTIVE DUTY [id number] SP [id number] East Humana F [id number] SELF [id number] EAST REGION WPS [id number] S [id number] HEA [id number] S [id number] HUMANA EAST REG O [id number] S [id number] HUMANA HEA [id number] S [id number] 300 [id number] Heather [id number] 300 East Humana F [id number] SELF [id number] East Humana F [id number] SELF [id number] EAST HUMANA - O/P [id number] 18 [id number] U [id number] Self [id number] 300 ACTIVE DUTY [id number] SP [id number] ACTIVE DUTY [id number] SP [id number] Problems, Conditions, and Diagnoses Code Display Name Description Problem Type Effective Dates Data Source(s) G47.00 Insomnia Insomnia [id number] 06/20/2019 12:00:00 AM ES T [facility] G95.9 Cervical myelopathy Cervical myelopathy [id number] 08/21/2018 12:00:00 AM [facility] K21.9 GERD (gastroesophageal reflux disease) G ERD (gastroesophageal reflux disease) [id number] 06/20/2019 12:00:00 AM [facility] R42 Dizziness and giddiness DIZZINESS AND GIDDINESS Diagno sis 03/14/2020 10:10:00 AM [facility] M54.2 Cervicalgia Cervicalgia Diagnosis 06/26/2019 01:49:00 PM [facility] G95.9 Disease of spinal cord, unspecified Disease of s lupe cord, unspecified Diagnosis 06/26/2019 12:10:00 PM [facility] G47.00 Insomnia, unspecified Insomnia, unspecified Diagnosis 06/20/2019 02:49:41 PM [facility] K21.9 Gastro-esophageal reflux disease without esophagitis Gastro-esophageal reflux disease without Diagnosis 06/20/2019 02:49:41 PM [facility] Surgeries/Procedures Procedure Description Date Indications Data Source(s) MRI Brain W/O Contrast, Followed By Contrast 0 12:00:00 AM EDT MEDENT ([facility]) MRI Brain W/O Contrast, Followed By Contrast 0 12:00:00 AM EDT MEDENT ([facility]) MRI Spine Cervical W/O Contrast, Followed By Contrast 03/15/2020 12:00:00 AM EDT MEDENT ([facility]) MRI Spine Cervical W/O Contrast, Followed By Contrast 03/15/2020 12:00:00 AM EDT MEDENT ([facility]) MRI Spine Thoracic W/O Contrast, Followed By Contrast 03/15/2020 12:00:00 AM EDT MEDENT ([facility]) MRI Spine Thoracic W/O Contrast, Followed By Contrast 03/15/2020 12:00:00 AM EDT MEDENT ([facility]) MRI, pelvis, w/o contrast 02/07/2020 12:00:00 AM EDT FROILAN ([facility]) Neck Surgery 12/18/2019 12:00:00 AM EDT A THENA ([facility]) Neck Surgery 12/18/2019 12:00:00 AM EDT A THENA ([facility]) Neck Surgery 12/18/2019 12:00:00 AM EDT A THENA ([facility]) Neck Surgery 12/18/2019 12:00:00 AM EDT A THENA ([facility]) Neck Surgery 12/18/2019 12:00:00 AM EDT A THENA ([facility]) Neck Surgery 12/18/2019 12:00:00 AM EDT A THENA ([facility]) Neck Surgery 12/18/2019 12:00:00 AM EDT A THENA ([facility]) Neck Surgery 12/18/2019 12:00:00 AM EDT A THENA ([facility]) Neck Surgery 12/18/2019 12:00:00 AM EDT A THENA ([facility]) Neck Surgery 12/18/2019 12:00:00 AM EDT A THENA ([facility]) Neck Surgery 12/18/2019 12:00:00 AM EDT A THENA ([facility]) Arthrodesis Anterior Interbody Technique W/Diskectomy, Below C2 12/18/2019 12:00:00 AM EDT MEDENT ([facility]) Spinal Instrumentation Anterior 2-3 Vertebral Segments 12/18/2019 12:00:00 AM EDT MEDENT ([facility]) Insertion Interbody Biomechanical Device; Each Interspace 12/18/2019 12:00:00 AM EDT MEDENT ([facility]) RMVL DISC ARTHROPLASTY ANT 1 INTERSPACE CERVICAL 12/17 12:00:00 AM EDT MEDENT ([facility]) FLUORO NEEDLE/CATH SPINE/PARASPINAL DX/THER IR LUMBAR PUNCTURE Routine 06/26/2019 2:29 PM EST 06/26/2019 07:29:01 PM EST [facility] CT CERVICAL SPINE W/CONTRAST MATERIAL CT MYELOGRAM CERVICAL SPI NE Routine 06/26/2019 2:29 PM EST Cervicalgia 06/26/2019 07:29:01 PM EST Cervicalgia [facility] Cervicalgia THROMBOPLASTIN TIME PARTIAL PLASMA/WHOLE BLOOD APTT Routine 06/20/2019 3:25 PM EST Gastroesophageal reflux disease, esophagitis presence not specified 06/20/2019 08:25:00 PM EST Gastroesophageal reflux disease, esophag itis presence not specified [facility] Gastroesophageal reflux disease, esophag itis presence not specified PROTHROMBIN TIME PROTIME-INR Routine 06/20/2019 3:25 PM EST Gastroesophageal reflux disease, esophagitis presence not specified 06/20/2019 08:25:00 PM EST Gastroesophageal reflux disease, esophag itis presence not specified [facility] Gastroesophageal reflux disease, esophag itis presence not specified BLOOD COUNT COMPLETE AUTO&AUTO DIFRNTL WBC COUNT CBC AND DIFFER ENTIAL Routine 06/20/2019 3:25 PM EST Gastroesophageal reflux disease, esophagitis presence not specified 06/20/2019 08:25:00 PM EST Gastroesophageal reflux disease, esophag itis presence not specified [facility] Gastroesophageal reflux disease, esophag itis presence not specified BASIC METABOLIC PANEL CALCIUM TOTAL BASIC METABOLIC PANEL Routi ne 06/20/2019 3:25 PM EST Gastroesophageal reflux disease, esophagitis presence not specified 06/20/2019 08:25:00 PM EST Gastroesophageal reflux disease, esophag itis presence not specified [facility] Gastroesophageal reflux disease, esophag itis presence not specified Results ID Date Data Source [id number] 07/28/2020 09:45:00 AM EST [facility] Name Value Range Interpretation Code Description Data Stormy rce(s) Supporting Document(s) SARS coronavirus 2 RNA Not Detected [facility] [place] This lab was ordered by [facility] [employer] Laboratory and reported by [facility]. ID Date Data Source [id number] 06/23/2020 08:51:32 AM EST [facility]: Mya ClemenciaOB: 1980Provider: Minesh Gupta: 06/23/2020 Reason For VisitMya Thompson is here today for post op follow up. Mya Thompson is an established patient here for [...] today inthe office. Indication: pain/dysfunction.); Status:Complete; Done: [id number] Perform:SOS22; Due:[id number]; Last Updated By:Remi Chacon; 06/23/2020 8:31:45 AM;Ordered; For:Neck pain; Ordered By:Kun Gupta; Physical Therapy (SOS) - Spinal Physical Therapy Evaluation and Treatment Status:Complete Done: [id number] Ordered;For: Neck pain; Ordered By: Kun Gupta Performed: Due: [id number]; Last Updated By: Vijaya Chahal; 06/23/2020 8:50:07 [...] Referral: Physical therapy prescribed. Pain management referral [facility]. I will see the patient back as needed. The patient understands they may contact us if they have any change in symptoms Signatures Electronically signed by : Kun Gupta M.D.; Jun 23 2020 8:51AM EST (Author) Name Value Range Interpretation Code Description Data Stormy rce(s) Supporting Document(s) ID Date Data Source [id number] 02/04/2020 11:11:09 AM EDT [facility]jia: 1980Provider: Minesh [...] rce(s) Supporting Document(s) ID Date Data Source [id number] 01/11/2020 12:00:00 AM EDT FROILAN ([facility]) Name Value Range Interpretation Code Description Data Stormy rce(s) Supporting Document(s) ID Date Data Source [id number] 01/11/2020 12:00:00 AM EDT FROILAN ([facility]) Name Value Range Interpretation Code Description Data Stormy rce(s) Supporting Document(s) ID Date Data Source [id number] 01/11/2020 12:00:00 AM EDT FROILAN ([facility]) Name Value Range Interpretation Code Description Data Stormy rce(s) Supporting Document(s) ID Date Data Source [id number] 01/11/2020 12:00:00 AM EDT FROILAN ([facility]) Name Value Range Interpretation Code Description Data Stormy rce(s) Supporting Document(s) ID Date Data Source [id number] 01/11/2020 12:00:00 AM EDT FROILAN ([facility]) Name Value Range Interpretation Code Description Data Stormy rce(s) Supporting Document(s) ID Date Data Source [id number] 01/11/2020 12:00:00 AM EDT FROILAN ([facility]) Name Value Range Interpretation Code Description Data Stormy rce(s) Supporting Document(s) ID Date Data Source [id number] 01/11/2020 12:00:00 AM EDT FROILAN ([facility]) Name Value Range Interpretation Code Description Data Stormy rce(s) Supporting Document(s) ID Date Data Source [id number] 01/11/2020 12:00:00 AM EDT FROILAN ([facility]) Name Value Range Interpretation Code Description Data Stormy rce(s) Supporting Document(s) ID Date Data Source [id number] 01/11/2020 12:00:00 AM EDT BRUSSELS ([facility]) Name Value Range Interpretation Code Description Data Stormy rce(s) Supporting Document(s) ID Date Data Source [id number] 01/11/2020 12:00:00 AM EDT FROILAN ([facility]) Name Value Range Interpretation Code Description Data Stormy rce(s) Supporting Document(s) ID Date Data Source [id number] 01/11/2020 12:00:00 AM EDT FROILAN ([facility]) Name Value Range Interpretation Code Description Data Stormy rce(s) Supporting Document(s) ID Date Data Source [id number] 01/11/2020 12:00:00 AM EDT FROILAN ([facility]) Name Value Range Interpretation Code Description Data Stormy rce(s) Supporting Document(s) ID Date Data Source [id number] 01/11/2020 12:00:00 AM EDT [facility] Name Value Range Interpretation Code Description Data Stormy rce(s) Supporting Document(s) SARS-CoV-2 [facility] This lab was ordered by [facility] and reported by [employer]. ID Date Data Source [id number] 01/02/2020 11:24:42 AM EDT [facility]: [facility]jia: 1980Provider: aDly Valles: 01/01/2020 History of Present IllnessThis is [...] Start: HYDROcodone- Acetaminophen 7.5-325 MG Oral Tablet (Anthony); 1 PO Q6 HRSPRN PAIN Reference #:[id number] MDD:4 Rx By: Ryan Valles; Dispense: 0 Days ; #:60 Tablet; Refill: 0;For: Aftercare following surgery of the musculoskeletal system, Neck pain; KALEIGH = N; Print Rx; Last Updated By: Vijaya Chahal; 01/01/2020 8:28:47 AM X-Ray I Cervical Spine - 2 views (XRays were ordered, obtained and interpreted today inthe office. Indication: pain/dysfunction.); Status:Complete; Done: [id number] Perform:SOS22; Due:[id number]; Last Updated By:Amanda Diaz; 01/01/2020 8:08:07 AM;Ordered; [...] document was dictated and electronically signed using [employer] software. A reasonable attempt at proof reading has been made to minimize errors. Please call with any questions. Signatures Electronically signed by : Julio Morgan; Jan 01 2020 8:42AM EST (Author) Electronically signed by : Kun Gupta M.D.; Jan 02 2020 11:24AM EST Name Value Range Interpretation Code Description Data Stormy rce(s) Supporting Document(s) ID Date Data Source [id number] 12/31/2019 12:00:00 AM EDT FROILAN ([facility]) Name Value Range Interpretation Code Description Data Stormy rce(s) Supporting Document(s) ID Date Data Source [id number] 12/31/2019 12:00:00 AM EDT FROILAN ([facility]) Name Value Range Interpretation Code Description Data Stormy rce(s) Supporting Document(s) ID Date Data Source [id number] 12/31/2019 12:00:00 AM EDT FROILAN ([facility]) Name Value Range Interpretation Code Description Data Stormy rce(s) Supporting Document(s) ID Date Data Source [id number] 12/31/2019 12:00:00 AM EDT FROILAN ([facility]) Name Value Range Interpretation Code Description Data Stormy rce(s) Supporting Document(s) ID Date Data Source [id number] 12/31/2019 12:00:00 AM EDT FROILAN ([facility]) Name Value Range Interpretation Code Description Data Stormy rce(s) Supporting Document(s) ID Date Data Source [id number] 12/31/2019 12:00:00 AM EDT FROILAN ([facility]) Name Value Range Interpretation Code Description Data Stormy rce(s) Supporting Document(s) ID Date Data Source [id number] 12/31/2019 12:00:00 AM EDT FROILAN ([facility]) Name Value Range Interpretation Code Description Data Stormy rce(s) Supporting Document(s) ID Date Data Source [id number] 12/31/2019 12:00:00 AM EDT FROILAN ([facility]) Name Value Range Interpretation Code Description Data Stormy rce(s) Supporting Document(s) ID Date Data Source [id number] 12/31/2019 12:00:00 AM EDT FROILAN ([facility]) Name Value Range Interpretation Code Description Data Stormy rce(s) Supporting Document(s) ID Date Data Source [id number] 12/31/2019 12:00:00 AM EDT FROILAN ([facility]) Name Value Range Interpretation Code Description Data Stormy rce(s) Supporting Document(s) ID Date Data Source [id number] 12/31/2019 12:00:00 AM EDT FROILAN ([facility]) Name Value Range Interpretation Code Description Data Stormy rce(s) Supporting Document(s) ID Date Data Source [id number] 12/31/2019 12:00:00 AM EDT FROILAN ([facility]) Name Value Range Interpretation Code Description Data Stormy rce(s) Supporting Document(s) ID Date Data Source [id number] 12/31/2019 12:00:00 AM EDT FROILAN ([facility]) Name Value Range Interpretation Code Description Data Stormy rce(s) Supporting Document(s) ID Date Data Source [id number] 12/31/2019 12:00:00 AM EDT FROILAN ([facility]) Name Value Range Interpretation Code Description Data Stormy rce(s) Supporting Document(s) ID Date Data Source [id number] 12/31/2019 12:00:00 AM EDT [facility] Name Value Range Interpretation Code Description Data Stormy rce(s) Supporting Document(s) SARS-CoV-2 [facility] This lab was ordered by [facility] and reported by [employer]. ID Date Data Source [id number] 12/18/2019 05:13:00 PM EDT [facility] DATE OF EXAM: 12/18/2019EXAM: Spine Cerv ical 1V INDICATION: c6-7 acdf michell 5 ft .2 mmm TECHNIQUE: One intraoperative images were obtained. COMPARISON: None available. FINDINGS/IMPRESSION: Single intraoperative fluoroscopic image obtained during C6-C7 ACDF.Please refer to surgical report for further details. Fluoroscopy time: 3.0 seconds. X5End of diagnostic report for accession: [id number] Interpreted: Leona Conde MDTranscribed: 12/18/2019 05:13 PMSigned: 12/18/2019 05:13 PM Leona Conde MD [facility] # [id number] BILL # [id number] [facility] Name Value Range Interpretation Code Description Data Stormy rce(s) Supporting Document(s) ID Date Data Source [id number] 12/28/2019 11:46:00 AM EDT [facility] [address] [facility] [place], [place] [address]QRJDTQT NAME: MYA THOMPSONDATE OF : 1980REPORT: OPERATIONPATIENT NUMBER: [id number] STATUS: OF ADMISSION: 12/18/2019DATE OF DISCHARGE:ROOM:DATE OF [...] were placed underneath these muscles. Onesimo placed [place] pins at C6 and C7 and distracted [...] SHERRON Warnerictated: 12/18/2019 9:06DT: 12/18/2019 9:12Job #: [id number]: [facility] computer generated reports are not confirmed orauthenticated unless they are signed by the providerElectronically Authenticated by:KUN GUPTA MD On 12/28/2019 11:46 AM EDT Name Value Range Interpretation Code Description Data Stormy rce(s) Supporting Document(s) ID Date Data Source [id number] 12/13/2019 11:05:09 AM EDT [facility] PCName: Mya Mejia: 1980Provider: Daly [...] document was dictated and electronically signed using Applits software. A reasonable attempt at proof reading has been made to minimize errors. Please call with any questions. Signatures Electronically signed by : Julio Morgan; Dec 13 2019 11:00AM EST (Author) Electronically signed by : Kun Gupta M.D.; Dec 13 2019 11:05AM EST Name Value Range Interpretation Code Description Data Stormy rce(s) Supporting Document(s) ID Date Data Source [id number] 12/11/2019 12:56:24 PM EDT [facility] SPEC EXP DATE 12/21/2019PATI ENT ABO/Rh O POSITIVEANTIBODY SCREEN NEGATIVETESTING SITE PERFORMED AT [address] [place] [address] BANK COMMENT BLOOD TYPE CONFIRMED. Name Value Range Interpretation Code Description Data Stormy rce(s) Supporting Document(s) ID Date Data Source [id number] 12/08/2019 11:36:35 AM EDT [facility] Name Value Range Interpretation Code Description Data Stormy rce(s) Supporting Document(s) SPECIMEN DESCRIPTION [facility] STAPH SCREEN RESULTS (ONEGSA) [facility] COMMENT [facility] GENE TO DETECT STAPH AUREUS. (2) RT-P CR WAS PERFORMED FOR THE mecA AND SCCmec GENES TO DETECT METHICILLIN RESISTANCE IN STAPH AUREUS. ID Date Data Source [id number] 12/07/2019 11:36:08 AM EDT [facility] Name Value Range Interpretation Code Description Data Stormy rce(s) Supporting Document(s) SODIUM 141 mmol/L (136-145) [facility] POTASSIUM 4.4 mmol/L (3.6-5.2) [facility] CHLORIDE 108 mmol/L (100-108) [facility] CO2 30 mmol/L (22-31) [facility] ANION GAP 3 mmol/L (7-16) L [facility] UREA NITROGEN 10 mg/dL (7-24) [facility] CREATININE 1.01 mg/dL (0.80-1.30) [facility] BUN/CREAT RATIO 9.9 RATIO (10.0-20.0) L [facility] GLUCOSE 87 mg/dL (70-99) [facility] CALCIUM 9.1 mg/dL (8.4-10.2) [facility] TOTAL PROTEIN 7.1 g/dL (6.4-8.2) [facility] ALBUMIN 4.0 g/dL (3.5-4.6) [facility] GLOBULIN 3.1 g/dL (2.7-4.3) [facility] ALB/GLOB RATIO 1.3 RATIO [facility] ALKALINE PHOSPHATASE 77 U/L (45-117) [facility] BILIRUBIN,TOTAL 0.9 mg/dL (0.0-1.0) [facility] PLEASE NOTE:Total bilirubin results may be falselyelevated in patients taking Eltrombopag. AST (SGOT) 18 U/L (11-39) [facility] ALT (SGPT) 47 U/L (12-78) [facility] GFR >60 ml/min/1.73m2 (>59) [facility] GFR ( AMER) >60 ml/min/1.73m2 (>59) [facility] GFR INTERPRETATION [facility] --NORMAL KIDNEY FUNCTION OR MILD DISEASE - GFR >OR= 60CHRONIC KIDNEY DISEASE - GFR 15 - 59RENAL FAILURE - GFR <15 Est. GFR calculation based on the MDRDstudy equation, which assumes a steadystate for creatinine. Est. GFR should notbe used for medication dosing. ID Date Data Source [id number] 12/07/2019 11:12:28 AM EDT [facility] Name Value Range Interpretation Code Description Data Stormy rce(s) Supporting Document(s) WBC 3.7 10*3/uL (4.1-11.0) L [facility] [place] RBC 5.34 10*6/uL (4.60-6.10) [facility] HGB 15.6 g/dL (13.5-18.0) [facility] HCT 46.3 % (41.0-53.0) [facility] PERFORMED AT [address] [facility] [address] MCV 86.7 fL (80.0-95.0) [facility] MCH 29.2 pg (27.0-32.0) [facility] MCHC 33.7 g/dL (32.0-36.0) [facility] RDW 12.8 % (10.5-14.5) [facility] PLT 203 10*3/uL (150-450) [facility] MPV 9.1 fL (7.1-10.7) [facility] NEUT % 45.1 % (35.0-75.0) [facility] LYMPH % 42.3 % (16.0-52.0) [facility] MONO % 12.1 % (0.0-8.0) H [facility] EOS % 0.0 % (0.0-5.0) [facility] BASO % 0.5 % (0.0-4.0) [facility] NEUT # 1.7 10*3/uL (1.8-7.7) L [facility] LYMPH # 1.6 10*3/uL (1.2-4.8) [facility] MONO # 0.4 10*3/uL (0.0-0.8) [facility] Eosinophils [#/volume] in Blood by Automated count 0.0 10*3/uL (0.0-0 .5) [facility] BASO # 0.0 10*3/uL (0.0-0.2) [facility] ID Date Data Source [id number] 12/03/2019 12:00:00 AM EDT [facility] ([facility]) Name Value Range Interpretation Code Description Data Stormy rce(s) Supporting Document(s) ID Date Data Source [id number] 12/03/2019 12:00:00 AM EDT [facility] ([facility]) Name Value Range Interpretation Code Description Data Stormy rce(s) Supporting Document(s) ID Date Data Source [id number] 12/03/2019 12:00:00 AM EDT [facility] ([facility]) Name Value Range Interpretation Code Description Data Stormy rce(s) Supporting Document(s) ID Date Data Source [id number] 12/03/2019 12:00:00 AM EDT [facility] ([facility]) Name Value Range Interpretation Code Description Data Stormy rce(s) Supporting Document(s) ID Date Data Source [id number] 12/03/2019 12:00:00 AM EDT [facility] ([facility]) Name Value Range Interpretation Code Description Data Stormy rce(s) Supporting Document(s) ID Date Data Source [id number] 12/03/2019 12:00:00 AM EDT [facility] ([facility]) Name Value Range Interpretation Code Description Data Stormy rce(s) Supporting Document(s) ID Date Data Source [id number] 12/03/2019 12:00:00 AM EDT [facility] ([facility]) Name Value Range Interpretation Code Description Data Stormy rce(s) Supporting Document(s) ID Date Data Source [id number] 12/03/2019 12:00:00 AM EDT [facility] ([facility]) Name Value Range Interpretation Code Description Data Stormy rce(s) Supporting Document(s) ID Date Data Source [id number] 12/03/2019 12:00:00 AM EDT [facility] ([facility]) Name Value Range Interpretation Code Description Data Stormy rce(s) Supporting Document(s) ID Date Data Source [id number] 12/03/2019 12:00:00 AM EDT [facility] ([facility]) Name Value Range Interpretation Code Description Data Stormy rce(s) Supporting Document(s) ID Date Data Source [id number] 12/03/2019 12:00:00 AM EDT [facility] ([facility]) Name Value Range Interpretation Code Description Data Stormy rce(s) Supporting Document(s) ID Date Data Source [id number] 12/03/2019 12:00:00 AM EDT [facility] ([facility]) Name Value Range Interpretation Code Description Data Stormy rce(s) Supporting Document(s) ID Date Data Source [id number] 12/03/2019 12:00:00 AM EDT [facility] ([facility]) Name Value Range Interpretation Code Description Data Stormy rce(s) Supporting Document(s) ID Date Data Source [id number] 12/03/2019 12:00:00 AM EDT [facility] ([facility]) Name Value Range Interpretation Code Description Data Stormy rce(s) Supporting Document(s) ID Date Data Source [id number] 12/03/2019 12:00:00 AM EDT [facility] ([facility]) Name Value Range Interpretation Code Description Data Stormy rce(s) Supporting Document(s) ID Date Data Source [id number] 12/03/2019 12:00:00 AM EDT [facility] ([facility]) Name Value Range Interpretation Code Description Data Stormy rce(s) Supporting Document(s) ID Date Data Source [id number] 12/03/2019 12:00:00 AM EDT [facility] Name Value Range Interpretation Code Description Data Stormy rce(s) Supporting Document(s) SARS-CoV-2 [facility] This lab was [facility] by [facility] and reported by [employer]. ID Date Data Source [id number] 10/25/2019 11:10:00 AM EDT [facility] ([facility]) Name Value Range Interpretation Code Description Data Stormy rce(s) Supporting Document(s) Platelet aggregation collagen induced [Presence] in Platelet rich plasma 130 s 56-103 [facility]) Results may be affected by platelet coun ts less than 150,000/mL or hematocrits less than 35%. ID Date Data Source [id number] 10/25/2019 11:10:00 AM EDT [facility] ([facility]) Name Value Range Interpretation Code Description Data Stormy rce(s) Supporting Document(s) Collagen Epinephrine 186 s 74-162 [facility] ([facility]) Results may be affected by platelet coun ts less than 150,000/mL or hematocrits less than 35%. If COL/EPI is NORMAL, COL/ADP is not performed. Result Interpretation: COL/EPI COL/ADP NORMAL NORMAL NORMAL ASA ABNORMAL NORMAL vWD ABNORMAL NORMAL GLANZMANN'S ABNORMAL ABNORMAL THROMBASTHENIA POSSIBLE DRUG ABNORMAL ABNORMAL EFFECT ID Date Data Source [id number] 10/25/2019 11:10:00 AM EDT [facility] ([facility] ) Name Value Range Interpretation Code Description Data Stormy rce(s) Supporting Document(s) Prothrombin Time 14.1 s 11.8-14.0 [facility] ([facility]) Inr 1.11 [facility] ([facility]) THERAPUTIC HUMAN INR VALUES INDICATIONS NORMAL RANGES PROPHYLAXIS/TREATMENT OF: VENOUS THROMBOSIS 2.0-3.0 PULMONARY EMBOLISM 2.0-3.0 PREVENTION OF SYSTEMIC EMBOLISM FROM: TISSUE HEART VALVES 2.0-3.0 ACUTE MYOCARDIAL INFARCTION 2.0-3.0 VALVULAR HEART DISEASE 2.0-3.0 ATRIAL FIBRILLATION 2.0-3.0 MECHANICAL VALVES(HIGH RISK) 2.5-3.5 RECURRENT MYOCARDIAL INFARCTION 2.5-3.5 Partial Thromboplastin Time 33.2 s 25.0-38.4 [facility] ([facility]) ID Date Data Source [id number] 10/25/2019 11:10:00 AM EDT [facility] ([facility] ) Name Value Range Interpretation Code Description Data Stormy rce(s) Supporting Document(s) Platelets [#/volume] in Blood by Automated count 194 10 150-450 [facility] ([facility]) ID Date Data Source [id number] 09/12/2019 07:53:39 AM EST [facility] PCName: Mya AsareDOB: 1980Provider: Mabel Daly: 07/25/2019 History of Present IllnessThis is a 39-year-old male who is status post C6-7 disc replacement a few years ago done in [place]. He complains of persistent and worsening neck [...] document was dictated and electronically signed using Applits software. A reasonable attempt at proof reading has been made to minimize errors. Please call with any questions. Signatures Electronically signed by : Julio Morgan; Jul 25 2019 2:20PM EST (Author) Electronically signed by : Kun Gupta M.D.; Jul 27 2019 9:05AM EST Name Value Range Interpretation Code Description Data Stormy rce(s) Supporting Document(s) ID Date Data Source [id number] 07/26/2019 07:54:00 AM EST [facility] [place], [place] [address]KUHWGEK NAME: SALVADOR THOMPSON OF : 1980REPORT: HISTORY AND PHYSICALPATIENT NUMBER: [id number] STATUS: IPMEDICAL RECORD NUMBER: [id number] OF ADMISSION: 08/02/2019ROOM:DATE: 07/25/2019ATTENDING SURGEON: JAYJAY WarnerDIGNITY HEALTH EAST VALLEY REHABILITATION HOSPITALEllen [facility] PHYSICIAN: Cpt. Shannon [facility] HospitalASON FOR ADMISSION: Cervical myelopathy C6-C7, anterior cervicaldiscectomy and fusion, prosthetic cage, anterior plate and screwinstrumentation, removal of disc replacement C6-C7 with Dr. 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 He states [facility]. The patient states a cervical disc was replaced. After surgery, his legs began to feel "heavy". Legs continue to feel heavy. He feels numbness and tingling feelings from his chest down to his feet. Bilateral fourth and visual merchandiser digits feel numbness and tingling, radiating up [...] surgery with disc replacement on 01/13/2017 at [facility].FAMILY HISTORY: Parents are healthy.SOCIAL HISTORY: The patient is to Nuzhat Cali and they arethe proud parents of a 4-month-old son. The patient serves in the [employer]. He isChristian by synagogue preference. Denies smoking history, alcohol intake,or illicit drug use.MEDICATIONS: No home medications reported at this time. Pharmacy ofchoice would be the [facility].REVIEW OF SYSTEMS: General: Denies fever, night [...] patient is muscular throughout. Neurological: Oriented x3. Commercial Door Installer strength equal bilaterally 5/5. Leg strength sitting [...] Caro NPDictated: 07/25/2019 11:38DT: 07/25/2019 11:46Job #: [id number]: CptVeda ShannonWest River, New YorkNOTE: [facility] computer generated reports are notconfirmed or authenticated unless they are signed by the providerElectronically Authenticated and Edited by:KETURAH WATT NP On 07/26/2019 07:54 AM EST Name Value Range Interpretation Code Description Data Stormy rce(s) Supporting Document(s) ID Date Data Source [id number] 07/26/2019 10:55:33 AM EST [facility] Name Value Range Interpretation Code Description Data Stormy rce(s) Supporting Document(s) SPECIMEN DESCRIPTION [facility] STAPH SCREEN RESULTS (ONEGSA) [facility] COMMENT [facility] GENE TO DETECT STAPH AUREUS. (2) RT-P CR WAS PERFORMED FOR THE mecA AND SCCmec GENES TO DETECT METHICILLIN RESISTANCE IN STAPH AUREUS. ID Date Data Source [id number] 07/25/2019 12:21:52 PM EST [facility] Name Value Range Interpretation Code Description Data Stormy rce(s) Supporting Document(s) WBC 2.9 10*3/uL (4.1-11.0) L [facility] [place] RBC 5.39 10*6/uL (4.60-6.10) [facility] HGB 15.8 g/dL (13.5-18.0) [facility] HCT 47.2 % (41.0-53.0) [facility] PERFORMED AT [address] [facility] [address] MCV 87.6 fL (80.0-95.0) [facility] MCH 29.4 pg (27.0-32.0) [facility] MCHC 33.5 g/dL (32.0-36.0) [facility] RDW 12.4 % (10.5-14.5) [facility] PLT 198 10*3/uL (150-450) [facility] MPV 9.5 fL (7.1-10.7) [facility] NEUT % 32.0 % (35.0-75.0) L [facility] LYMPH % 52.0 % (16.0-52.0) [facility] ATYP LYMPH % 5.0 % (0.0-5.0) [facility] [place] MONO % 9.0 % (0.0-8.0) H [facility] BASO % 2.0 % (0.0-4.0) [facility] NEUT # 0.9 10*3/uL (1.8-7.7) L [facility] LYMPH # 1.5 10*3/uL (1.2-4.8) [facility] ATYP LYMPH # 0.1 10*3/uL [facility] MONO # 0.3 10*3/uL (0.0-0.8) [facility] BASO # 0.1 10*3/uL (0.0-0.2) [facility] POIK 1+ [facility] OVALO 1+ [facility] LARGE PLT 1+ [facility] ID Date Data Source [id number] 07/25/2019 12:15:39 PM EST [facility] SPEC EXP DATE 08/05/2019PATI ENT ABO/Rh O POSITIVEANTIBODY SCREEN NEGATIVETESTING SITE PERFORMED AT [address] [place] [address] Name Value Range Interpretation Code Description Data Stormy rce(s) Supporting Document(s) ID Date Data Source [id number] 07/25/2019 11:31:26 AM EST [facility] Name Value Range Interpretation Code Description Data Stormy rce(s) Supporting Document(s) SODIUM 140 mmol/L (136-145) [facility] POTASSIUM 4.6 mmol/L (3.6-5.2) [facility] CHLORIDE 106 mmol/L (100-108) [facility] CO2 34 mmol/L (22-31) H [facility] ANION GAP 0 mmol/L (7-16) L [facility] UREA NITROGEN 13 mg/dL (7-24) [facility] CREATININE 1.08 mg/dL (0.80-1.30) [facility] BUN/CREAT RATIO 12.0 RATIO (10.0-20.0) [facility] GLUCOSE 80 mg/dL (70-99) [facility] CALCIUM 9.5 mg/dL (8.4-10.2) [facility] TOTAL PROTEIN 7.4 g/dL (6.4-8.2) [facility] ALBUMIN 4.0 g/dL (3.5-4.6) [facility] GLOBULIN 3.4 g/dL (2.7-4.3) [facility] ALB/GLOB RATIO 1.2 RATIO [facility] ALKALINE PHOSPHATASE 83 U/L (45-117) [facility] BILIRUBIN,TOTAL 0.7 mg/dL (0.0-1.0) [facility] AST (SGOT) 22 U/L (11-39) [facility] ALT (SGPT) 50 U/L (12-78) [facility] GFR >60 ml/min/1.73m2 (>59) [facility] GFR ( AMER) >60 ml/min/1.73m2 (>59) [facility] GFR INTERPRETATION [facility] --NORMAL KIDNEY FUNCTION OR MILD DISEASE - GFR >OR= 60CHRONIC KIDNEY DISEASE - GFR 15 - 59RENAL FAILURE - GFR <15 Est. GFR calculation based on the MDRDstudy equation, which assumes a steadystate for creatinine. Est. GFR should notbe used for medication dosing. ID Date Data Source [id number] 07/06/2019 03:23:05 PM EST [facility] PC[facility]: Mya Mejia: 1980Provider: Minesh [...] There is subsidence of the implant at C6-T5bbzdadlpkcmxczktvz myelopathy, C6-7, previous disc replacement at C6-7 [...] rce(s) Supporting Document(s) ID Date Data Source [id number] 06/26/2019 05:02:44 PM EST [address] [address]Xmaqjsw Name: MYA ASAREDOB: 1980Sex: MOrdering Provider: MICHAEL YEAutholeobardo Prov: MICHAEL Zapata Provider: MYA MATAProoliver Performed: IR LUMBAR PUNCTUREExam Date: 06/26/2019 14:29MRN: [id number] Number: [id number] Class: OutpatientAccount #: [id number] for Exam: for cervical myelogramTechnique: Image guided [...] MICHAEL YE On 06/26/2019 5:02 PMWorkstation ID: [id number] Name Value Range Interpretation Code Description Data Stormy rce(s) Supporting Document(s) ID Date Data Source [id number] 06/26/2019 03:00:34 PM EST [address] [address]Dbezeyq Name: MYA ASAREDOB: 1980Sex: MOrdering Provider: MYA CHAPARROEFANOAuthorizing Prov: MYA DISTEFANOReferring Provider: MYA OLVERAANOProleslieure Performed: CT MYELOGRAM CERVICAL SPINEExam Date: 06/26/2019 14:29MRN: [id number] Number: [id number] Class: OutpatientAccount #: [id number] for Exam: CervicalgiaTechnique: Helical axial images were [...] MICHAEL YE On 06/26/2019 3:00 PMWorkstation ID: [id number] Name Value Range Interpretation Code Description Data Stormy rce(s) Supporting Document(s) ID Date Data Source [id number] 06/26/2019 02:07:47 PM [facility]PAT[facility] NT INFORMATIONPatient MRN Name Date of Age Gend*PT [id number] Mya Thompson 1980 39 years M HOPPT Location Admission Date/Time Visit ID Attending [id number] 06/26/19 1210 --- Michael Ye DO([id number]) EPI ID CSN Admitting Provider [id number] Michael Ye DO([id number])Brief Operative/Invasive Procedure NoteRichard AsareDATE OF : 1980MRN # [id number] DATE: 06/26/2019PROVIDER:Michael Ye DO 06/26/2019 2:06 PMASSISTANCE(S): NonePROCEDURE:Image Guided MyelogramPRE-PROCEDURE DIAGNOSIS:Cervical myelopathyPOST PROCEDURE DIAGNOSIS:Cervical myelopathyANESTHESIA TYPE:localDRAINS:NoneSPECIMENS:NoneESTIMATED BLOOD LOSS: MinimalGRAFTS OR IMPLANTS:NoneFINDINGS: Consistent with operative diagnosisCOMPLICATIONS: NoneMonik Sandoval of Interventional Radiology Name Value Range Interpretation Code Description Data Stormy rce(s) Supporting Document(s) ID Date Data Source [id number] 06/26/2019 12:28:42 PM EST [facility] INFORMATIONPatient MRN Name Date of Age Gend*PT [id number] Mya Thompson 1980 39 years M HOPPT Location Admission Date/Time Visit ID Attending [id number] 06/26/19 1210 --- Michael Ye DO([id number]) EPI ID CSN Admitting Provider [id number] Michael Ye DO([id number])H&P reviewed. Pt examined and there are no changes to the H&P.Signature: SKYLER Pollardate: June 26, 2019Time: 12:28 PM Name Value Range Interpretation Code Description Data Stormy rce(s) Supporting Document(s) ID Date Data Source [id number] 06/20/2019 09:05:01 PM EST [facility] Name Value Range Interpretation Code Description Data Stormy rce(s) Supporting Document(s) WBC 3.7 10*3/uL (4.1-11.0) L [facility] [place] RBC 5.32 10*6/uL (4.60-6.10) [facility] HGB 15.6 g/dL (13.5-18.0) [facility] HCT 45.8 % (41.0-53.0) [facility] MCV 86.1 fL (80.0-95.0) [facility] MCH 29.3 pg (27.0-32.0) [facility] MCHC 34.0 g/dL (32.0-36.0) [facility] RDW 12.8 % (10.5-14.5) [facility] PLT 220 10*3/uL (150-450) [facility] MPV 9.7 fL (7.1-10.7) [facility] NEUT % 34.0 % (35.0-75.0) L [facility] BAND % 1.0 % (0.0-11.0) [facility] LYMPH % 51.0 % (16.0-52.0) [facility] ATYP LYMPH % 1.0 % (0.0-5.0) [facility] [place] MONO % 10.0 % (0.0-8.0) H [facility] EOS % 2.0 % (0.0-5.0) [facility] BASO % 1.0 % (0.0-4.0) [facility] NEUT # 1.3 10*3/uL (1.8-7.7) L [facility] BAND # 0.0 10*3/uL [facility] LYMPH # 1.9 10*3/uL (1.2-4.8) [facility] ATYP LYMPH # 0.0 10*3/uL [facility] MONO # 0.4 10*3/uL (0.0-0.8) [facility] Eosinophils [#/volume] in Blood by Automated count 0.1 10*3/uL (0.0-0 .5) [facility] BASO # 0.0 10*3/uL (0.0-0.2) [facility] ANISO 1+ [facility] LARGE PLT 1+ [facility] ID Date Data Source [id number] 06/20/2019 08:43:53 PM EST [facility] Name Value Range Interpretation Code Description Data Stormy rce(s) Supporting Document(s) SODIUM 143 mmol/L (136-145) [facility] POTASSIUM 4.9 mmol/L (3.6-5.2) [facility] CHLORIDE 107 mmol/L (100-108) [facility] CO2 31 mmol/L (22-31) [facility] ANION GAP 5 mmol/L (7-16) L [facility] UREA NITROGEN 12 mg/dL (7-24) [facility] CREATININE 1.10 mg/dL (0.80-1.30) [facility] BUN/CREAT RATIO 10.9 RATIO (10.0-20.0) [facility] GLUCOSE 60 mg/dL (70-99) L [facility] CALCIUM 9.6 mg/dL (8.4-10.2) [facility] GFR >60 ml/min/1.73m2 (>59) [facility] GFR ( AMER) >60 ml/min/1.73m2 (>59) [facility] GFR INTERPRETATION [facility] --NORMAL KIDNEY FUNCTION OR MILD DISEASE - GFR >OR= 60CHRONIC KIDNEY DISEASE - GFR 15 - 59RENAL FAILURE - GFR <15 Est. GFR calculation based on the MDRDstudy equation, which assumes a steadystate for creatinine. Est. GFR should notbe used for medication dosing. ID Date Data Source [id number] 06/20/2019 08:07:51 PM EST [facility] Name Value Range Interpretation Code Description Data Stormy rce(s) Supporting Document(s) APTT 29.1 s (22.0-34.3) [facility] ID Date Data Source [id number] 06/20/2019 08:07:51 PM EST [facility] [place] Name Value Range Interpretation Code Description Data Stormy rce(s) Supporting Document(s) PT 10.6 s (9.2-11.9) [facility] [place] INR 1.03 [facility] [place] SUGGESTED THERAPEUTIC RANGES USING INR F ORSTABILIZED ANTICOAGULATED PATIENTS:STANDARD DOSE THERAPY INR 2.0-3.0 DVT, PE, PREVENT DVT OR EMBOLISMHIGH DOSE THERAPY INR 2.5-3.5 PREVENT EMBOLISM FROM MECHANICAL HEART VALVE ID Date Data Source [id number] 06/20/2019 03:24:02 PM EST [facility] [facility] CenterPATIE NT INFORMATIONPatient MRN Name Date of Age Gend*PT [id number] Mya Thompson 1980 39 years M OPPT Location Admission Date/Time Visit ID Attending Provider --- --- --- Mya Mata MD([id number]) EPI ID CSN Admitting Provider [id number] ---INTERVENTIONAL RADIOLOGY AND OUT PATIENT HISTORY PHYSICALName: [...] nightly as needed forsleep Historical Provider, Davidizatriptan (MAXALT-CIGARETTE PAPER TESTER) 5 MG disintegrating tablet Take 5 mg [...] rce(s) Supporting Document(s) ID Date Data Source [id number] 06/07/2019 12:23:00 PM EST [facility] PATIENT MR#: [id number] NAME: ARE, MYA ROSE OF : 1980REFERRING [...] intake 06/26/2019 12:00:00 AM EST Never completed [facility] Smoking 06/26/2019 12:00:00 AM EST Never smoker completed Never s [facility] Smoking 06/20/2019 12:00:00 AM EST Never smoker completed Never [facility] Vital Signs ID Date Data Source UNK Name Value Range Interpretation Code Description Data Source(s) Systolic blood pressure 124 mm[Hg] 124 mm[Hg] A THENA ([facility]) Body height 66 [in_i] 66 [in_i] FROILAN ([facility]) Diastolic blood pressure 88 mm[Hg] 88 mm[Hg] FROILAN ([facility]) Systolic blood pressure 124 mm[Hg] 124 mm[Hg] A THENA ([facility]) Body height 66 [in_i] 66 [in_i] FROILAN ([facility]) Diastolic blood pressure 88 mm[Hg] 88 mm[Hg] FROILAN ([facility]) Systolic blood pressure 124 mm[Hg] 124 mm[Hg] A THENA ([facility]) Body height 66 [in_i] 66 [in_i] FROILAN ([facility]) Diastolic blood pressure 88 mm[Hg] 88 mm[Hg] FROILAN ([facility]) Systolic blood pressure 124 mm[Hg] 124 mm[Hg] A THENA ([facility]) Body height 66 [in_i] 66 [in_i] FROILAN ([facility]) Diastolic blood pressure 88 mm[Hg] 88 mm[Hg] RFOILAN ([facility]) Systolic blood pressure 124 mm[Hg] 124 mm[Hg] A THENA ([facility]) Body height 66 [in_i] 66 [in_i] FROILAN ([facility]) Diastolic blood pressure 88 mm[Hg] 88 mm[Hg] FROILAN ([facility]) Systolic blood pressure 124 mm[Hg] 124 mm[Hg] A THENA ([facility]) Body height 66 [in_i] 66 [in_i] FROILAN ([facility]) Diastolic blood pressure 88 mm[Hg] 88 mm[Hg] FROILAN ([facility]) Systolic blood pressure 124 mm[Hg] 124 mm[Hg] A THENA ([facility]) Body height 66 [in_i] 66 [in_i] FROILAN ([facility]) Diastolic blood pressure 88 mm[Hg] 88 mm[Hg] FROILAN ([facility]) Body weight 141 [lb_av] 141 [lb_av] FROILAN ([facility]) Systolic blood pressure 123 mm[Hg] 123 mm[Hg] A THENA ([facility]) Body mass index (BMI) [Ratio] 22.8 kg/m2 22.8 k g/m2 FROILAN ([facility]) Body height 66 [in_i] 66 [in_i] FROILAN ([facility]) Diastolic blood pressure 80 mm[Hg] 80 mm[Hg] FROILAN ([facility]) Body weight 141 [lb_av] 141 [lb_av] FROLIAN ([facility]) Systolic blood pressure 123 mm[Hg] 123 mm[Hg] A THENA ([facility]) Body mass index (BMI) [Ratio] 22.8 kg/m2 22.8 k g/m2 FROILAN ([facility]) Body height 66 [in_i] 66 [in_i] FROILAN ([facility]) Diastolic blood pressure 80 mm[Hg] 80 mm[Hg] FROILAN ([facility]) Body weight 141 [lb_av] 141 [lb_av] FROILAN ([facility]) Systolic blood pressure 123 mm[Hg] 123 mm[Hg] A THENA ([facility]) Body mass index (BMI) [Ratio] 22.8 kg/m2 22.8 k g/m2 FROILAN ([facility]) Body height 66 [in_i] 66 [in_i] FROILAN ([facility]) Diastolic blood pressure 80 mm[Hg] 80 mm[Hg] FROILAN ([facility]) Body weight 141 [lb_av] 141 [lb_av] FROILAN ([facility]) Systolic blood pressure 123 mm[Hg] 123 mm[Hg] A THENA ([facility]) Body mass index (BMI) [Ratio] 22.8 kg/m2 22.8 k g/m2 FROILAN ([facility]) Body height 66 [in_i] 66 [in_i] FROILAN ([facility]) Diastolic blood pressure 80 mm[Hg] 80 mm[Hg] FROILAN ([facility]) Body weight 141 [lb_av] 141 [lb_av] FROILAN ([facility]) Systolic blood pressure 123 mm[Hg] 123 mm[Hg] A THENA ([facility]) Body mass index (BMI) [Ratio] 22.8 kg/m2 22.8 k g/m2 FROILAN ([facility]) Body height 66 [in_i] 66 [in_i] FROILAN ([facility]) Diastolic blood pressure 80 mm[Hg] 80 mm[Hg] FROILAN ([facility]) Body weight 141 [lb_av] 141 [lb_av] FROILAN ([facility]) Systolic blood pressure 123 mm[Hg] 123 mm[Hg] A THENA ([facility]) Body mass index (BMI) [Ratio] 22.8 kg/m2 22.8 k g/m2 FROILAN ([facility]) Body height 66 [in_i] 66 [in_i] FROILAN ([facility]) Diastolic blood pressure 80 mm[Hg] 80 mm[Hg] FROILAN ([facility]) Body weight 141 [lb_av] 141 [lb_av] FROILAN ([facility]) Systolic blood pressure 123 mm[Hg] 123 mm[Hg] A THENA ([facility]) Body mass index (BMI) [Ratio] 22.8 kg/m2 22.8 k g/m2 FROILAN ([facility]) Body height 66 [in_i] 66 [in_i] FROILAN ([facility]) Diastolic blood pressure 80 mm[Hg] 80 mm[Hg] FROILAN ([facility]) Body weight 141 [lb_av] 141 [lb_av] FROILAN ([facility]) Systolic blood pressure 123 mm[Hg] 123 mm[Hg] A THENA ([facility]) Body mass index (BMI) [Ratio] 22.8 kg/m2 22.8 k g/m2 FROILAN ([facility]) Body height 66 [in_i] 66 [in_i] FROILAN ([facility]) Diastolic blood pressure 80 mm[Hg] 80 mm[Hg] FROILAN ([facility]) Body weight 141 [lb_av] 141 [lb_av] FROILAN ([facility]) Systolic blood pressure 123 mm[Hg] 123 mm[Hg] A THENA ([facility]) Body mass index (BMI) [Ratio] 22.8 kg/m2 22.8 k g/m2 FROILAN ([facility]) Body height 66 [in_i] 66 [in_i] FROILAN ([facility]) Diastolic blood pressure 80 mm[Hg] 80 mm[Hg] FROILAN ([facility]) Body weight 141 [lb_av] 141 [lb_av] FROILAN ([facility]) Systolic blood pressure 123 mm[Hg] 123 mm[Hg] A THENA ([facility]) Body mass index (BMI) [Ratio] 22.8 kg/m2 22.8 k g/m2 FROILAN ([facility]) Body height 66 [in_i] 66 [in_i] FROILAN ([facility]) Diastolic blood pressure 80 mm[Hg] 80 mm[Hg] FROILAN ([facility]) Body mass index (BMI) [Ratio] 22.1 kg/m2 22.1 k g/m2 MEDENT ([facility]) Body weight 143.12 [lb_av] 143.12 [lb_av] MEDEN T ([facility]) Body height 67.5 [in_i] 67.5 [in_i] MEDENT ([facility]) 5'7.50" Body temperature 95.8 [degF] 95.8 [degF] MEDENT ([facility]) Body weight 141 [lb_av] 141 [lb_av] FROILAN ([facility]) Systolic blood pressure 120 mm[Hg] 120 mm[Hg] A THENA ([facility]) Body mass index (BMI) [Ratio] 22.8 kg/m2 22.8 k g/m2 FROILAN ([facility]) Body height 66 [in_i] 66 [in_i] FROILAN ([facility]) Diastolic blood pressure 79 mm[Hg] 79 mm[Hg] FROILAN ([facility]) Body weight 141 [lb_av] 141 [lb_av] FROILAN ([facility]) Systolic blood pressure 120 mm[Hg] 120 mm[Hg] A THENA ([facility]) Body mass index (BMI) [Ratio] 22.8 kg/m2 22.8 k g/m2 FROILAN ([facility]) Body height 66 [in_i] 66 [in_i] FROILAN ([facility]) Diastolic blood pressure 79 mm[Hg] 79 mm[Hg] FROILAN ([facility]) Body weight 141 [lb_av] 141 [lb_av] FROILAN ([facility]) Systolic blood pressure 120 mm[Hg] 120 mm[Hg] A THENA ([facility]) Body mass index (BMI) [Ratio] 22.8 kg/m2 22.8 k g/m2 FROILAN ([facility]) Body height 66 [in_i] 66 [in_i] FROILAN ([facility]) Diastolic blood pressure 79 mm[Hg] 79 mm[Hg] FROILAN ([facility]) Body weight 141 [lb_av] 141 [lb_av] FROILAN ([facility]) Systolic blood pressure 120 mm[Hg] 120 mm[Hg] A THENA ([facility]) Body mass index (BMI) [Ratio] 22.8 kg/m2 22.8 k g/m2 FROILAN ([facility]) Body height 66 [in_i] 66 [in_i] FROILAN ([facility]) Diastolic blood pressure 79 mm[Hg] 79 mm[Hg] FROILAN ([facility]) Diastolic blood pressure 79 mm[Hg] 79 mm[Hg] FROILAN ([facility]) Body weight 141 [lb_av] 141 [lb_av] FROILAN ([facility]) Systolic blood pressure 120 mm[Hg] 120 mm[Hg] A THENA ([facility]) Body mass index (BMI) [Ratio] 22.8 kg/m2 22.8 k g/m2 FROILAN ([facility]) Body height 66 [in_i] 66 [in_i] FROILAN ([facility]) Diastolic blood pressure 79 mm[Hg] 79 mm[Hg] FROILAN ([facility]) Body weight 141 [lb_av] 141 [lb_av] FROILAN ([facility]) Systolic blood pressure 120 mm[Hg] 120 mm[Hg] A THENA ([facility]) Body mass index (BMI) [Ratio] 22.8 kg/m2 22.8 k g/m2 FROILAN ([facility]) Body height 66 [in_i] 66 [in_i] FROILAN ([facility]) Diastolic blood pressure 79 mm[Hg] 79 mm[Hg] FROILAN ([facility]) Body weight 141 [lb_av] 141 [lb_av] FROILAN ([facility]) Systolic blood pressure 120 mm[Hg] 120 mm[Hg] A THENA ([facility]) Body mass index (BMI) [Ratio] 22.8 kg/m2 22.8 k g/m2 FROILAN ([facility]) Body height 66 [in_i] 66 [in_i] FROLIAN ([facility]) Diastolic blood pressure 79 mm[Hg] 79 mm[Hg] FROILAN ([facility]) Body weight 141 [lb_av] 141 [lb_av] FROILAN ([facility]) Systolic blood pressure 120 mm[Hg] 120 mm[Hg] A THENA ([facility]) Body mass index (BMI) [Ratio] 22.8 kg/m2 22.8 k g/m2 FROILAN ([facility]) Body height 66 [in_i] 66 [in_i] FROILAN ([facility]) Diastolic blood pressure 79 mm[Hg] 79 mm[Hg] FROILAN ([facility]) Body weight 141 [lb_av] 141 [lb_av] FROILAN ([facility]) Systolic blood pressure 120 mm[Hg] 120 mm[Hg] A THENA ([facility]) Body mass index (BMI) [Ratio] 22.8 kg/m2 22.8 k g/m2 FROILAN ([facility]) Body height 66 [in_i] 66 [in_i] FROILAN ([facility]) Diastolic blood pressure 79 mm[Hg] 79 mm[Hg] FROILAN ([facility]) Body weight 141 [lb_av] 141 [lb_av] FROILAN ([facility]) Systolic blood pressure 120 mm[Hg] 120 mm[Hg] A THENA ([facility]) Body mass index (BMI) [Ratio] 22.8 kg/m2 22.8 k g/m2 FROILAN ([facility]) Body height 66 [in_i] 66 [in_i] FROILAN ([facility]) Diastolic blood pressure 79 mm[Hg] 79 mm[Hg] FROILAN ([facility]) Body weight 141 [lb_av] 141 [lb_av] FROILAN ([facility]) Systolic blood pressure 120 mm[Hg] 120 mm[Hg] A THENA ([facility]) Body mass index (BMI) [Ratio] 22.8 kg/m2 22.8 k g/m2 FROILAN ([facility]) Body height 66 [in_i] 66 [in_i] FROILAN ([facility]) Diastolic blood pressure 79 mm[Hg] 79 mm[Hg] FROILAN ([facility]) Body weight 141 [lb_av] 141 [lb_av] FROILAN ([facility]) Systolic blood pressure 120 mm[Hg] 120 mm[Hg] A THENA ([facility]) Body mass index (BMI) [Ratio] 22.8 kg/m2 22.8 k g/m2 FROILAN ([facility]) Body height 66 [in_i] 66 [in_i] FROILAN ([facility]) Diastolic blood pressure 79 mm[Hg] 79 mm[Hg] FROILAN ([facility]) Body weight 141 [lb_av] 141 [lb_av] FROILAN ([facility]) Systolic blood pressure 120 mm[Hg] 120 mm[Hg] A THENA ([facility]) Body mass index (BMI) [Ratio] 22.8 kg/m2 22.8 k g/m2 FROILAN ([facility]) Body height 66 [in_i] 66 [in_i] FROILAN ([facility]) Diastolic blood pressure 79 mm[Hg] 79 mm[Hg] FROILAN ([facility]) Body weight 141 [lb_av] 141 [lb_av] FROILAN ([facility]) Systolic blood pressure 120 mm[Hg] 120 mm[Hg] A THENA ([facility]) Body weight 141 [lb_av] 141 [lb_av] FROILAN ([facility]) Systolic blood pressure 120 mm[Hg] 120 mm[Hg] A THENA ([facility]) Body mass index (BMI) [Ratio] 22.8 kg/m2 22.8 k g/m2 FROILAN ([facility]) Body height 66 [in_i] 66 [in_i] FROILAN ([facility]) Body mass index (BMI) [Ratio] 22.8 kg/m2 22.8 k g/m2 FROILAN ([facility]) Body height 66 [in_i] 66 [in_i] FROILAN ([facility]) Diastolic blood pressure 79 mm[Hg] 79 mm[Hg] FROILAN ([facility]) Body weight 141 [lb_av] 141 [lb_av] FROILAN ([facility]) Systolic blood pressure 120 mm[Hg] 120 mm[Hg] A THENA ([facility]) Body mass index (BMI) [Ratio] 22.8 kg/m2 22.8 k g/m2 FROILAN ([facility]) Body height 66 [in_i] 66 [in_i] FROILAN ([facility]) Diastolic blood pressure 79 mm[Hg] 79 mm[Hg] FROILAN ([facility]) Body weight 141 [lb_av] 141 [lb_av] FROILAN ([facility]) Systolic blood pressure 120 mm[Hg] 120 mm[Hg] A THENA ([facility]) Body mass index (BMI) [Ratio] 22.8 kg/m2 22.8 k g/m2 FROILAN ([facility]) Body height 66 [in_i] 66 [in_i] FROILAN ([facility]) Diastolic blood pressure 79 mm[Hg] 79 mm[Hg] FROILAN ([facility]) Body weight 141 [lb_av] 141 [lb_av] FROILAN ([facility]) Systolic blood pressure 120 mm[Hg] 120 mm[Hg] A THENA ([facility]) Body mass index (BMI) [Ratio] 22.8 kg/m2 22.8 k g/m2 FROILAN ([facility]) Body height 66 [in_i] 66 [in_i] FROILAN ([facility]) Diastolic blood pressure 79 mm[Hg] 79 mm[Hg] FROILAN ([facility]) Body weight 141 [lb_av] 141 [lb_av] FROILAN ([facility]) Systolic blood pressure 120 mm[Hg] 120 mm[Hg] A THENA ([facility]) Body mass index (BMI) [Ratio] 22.8 kg/m2 22.8 k g/m2 FROILAN ([facility]) Body height 66 [in_i] 66 [in_i] FROILAN ([facility]) Diastolic blood pressure 79 mm[Hg] 79 mm[Hg] FROILAN ([facility]) Oxygen saturation in Arterial blood by Pulse oximetry 99 % 99 % [facility] Respiratory rate 16 /min 16 /min [facility] Body temperature 37 Maddy 37 Maddy [facility] Heart rate 71 /min 71 /min [facility] Diastolic blood pressure 81 mm[Hg] 81 mm[Hg] [facility] Systolic blood pressure 120 mm[Hg] 120 mm[Hg] [facility] Body mass index (BMI) [Ratio] 22.84 kg/m2 22.84 kg/m2 [facility] Body weight 64.2 kg 64.2 kg [facility] Body height 167.6 cm 167.6 cm [facility] Oxygen saturation in Arterial blood by Pulse oximetry 98 % 98 % [facility] Body mass index (BMI) [Ratio] 22.85 kg/m2 22.85 kg/m2 [facility] Body weight 64.212 kg 64.212 kg [facility] Body height 167.6 cm 167.6 cm [facility] Respiratory rate 10 /min 10 /min [facility] Heart rate 62 /min 62 /min [facility] Diastolic blood pressure 85 mm[Hg] 85 mm[Hg] [facility] Systolic blood pressure 127 mm[Hg] 127 mm[Hg] [facility] Patient Treatment Plan of Care Planned Activity Planned Date Details Description Data Source (s) INCOMPLETE HOME MEDICATION FOR INFORMATIONAL PURPOSES ONLY [facility]
--- NOTE | 2020-08-03 07:21 | REPVR ---
PROCEDURE INFORMATION: Exam: CT Head Without Contrast Exam date and time: 08/03/2020 6:55 AM Age: 40 years old Clinical indication: Pain; Headache; Migraine; Aura effect not specified TECHNIQUE: Imaging protocol: Computed tomography of the head without contrast. Radiation optimization: All CT scans at this facility use at least one of these dose optimization techniques: automated exposure control; mA and/or kV adjustment per patient size (includes targeted exams where dose is matched to clinical indication); or iterative reconstruction. COMPARISON: No relevant prior studies available. FINDINGS: Brain: There is a 5 mm ossific density in the left posterior parietal lobe best seen on axial image 19 and coronal image 29 in addition to calcification of the interhemispheric falx.. No hemorrhage. Unremarkable white matter. No mass effect. Cerebral ventricles: No ventriculomegaly. Bones/joints: Unremarkable. No acute fracture. Paranasal sinuses: Visualized sinuses are unremarkable. No fluid levels. Mastoid air cells: Visualized mastoid air cells are well aerated. Soft tissues: Unremarkable. IMPRESSION: 1. No CT evidence of acute intracranial hemorrhage, mass effect or midline shift. 2. 5 mm left posterior parietal ossific [id number] likely heterotopic benign ossification. Correlation with MRI may be helpful, if clinically indicated. Electronically signed by: Kings Islas On 08/03/2020 07:21:18 AM
[2020-08-03 08:17] VITALS: BP 99/68
== END 2020-08-03 08:51 | disposition home or self-care (01) ==
LOC: M ED 05:28
DX: G43.909 Migraine, unspecified, not intractable, without status migrainosus (principal); R93.0 Abnormal findings on diagnostic imaging of skull and head, not elsewhere classified
CPT/HCPCS: 70450; 96361; 96374; 96375; 99284; J1200; J1885; J2765

== ENCOUNTER 2020-12-15 05:35 | Emergency (ER) | payer OTHER ==
[~2020-12-15] VITALS: Ht 167.6 cm; Wt 68.1 kg
[~2020-12-15 05:35] MED LIST: [UNRECOGNIZED DRUG - REMARK]
[2020-12-15] MEDS ORDERED: IBUP200T45 PO (05:41)
[2020-12-15] MEDS ORDERED: KETOROLAC 30 MG/ML 1ML VIAL IV ONE (06:20)
[2020-12-15] MEDS ORDERED: ACETAMINOPHEN 500 MG TAB PO ONE (06:20)
[2020-12-15] MEDS ORDERED: diphenhydrAMINE 50MG/ML VIAL (J1200) IV ONE (06:20)
[2020-12-15] MEDS ORDERED: NS 1,000 ML IV ONE (06:20)
[2020-12-15] MEDS ORDERED: METOCLOPRAMIDE INJ 10MG/2ML VIAL (J2765 PER 1) IV ONE (06:20)
[2020-12-15 08:00] VITALS: BP 113/78
== END 2020-12-15 08:23 | disposition home or self-care (01) ==
LOC: M ED 05:35
DX: G43.909 Migraine, unspecified, not intractable, without status migrainosus (principal); R20.2 Paresthesia of skin; F43.10 Post-traumatic stress disorder, unspecified; Z98.1 Arthrodesis status
CPT/HCPCS: 96361; 96374; 96375; 99284; J1200; J1885; J2765

== ENCOUNTER → 2021-01-20 | Outpatient (REF) ==
[~2021-01-20] MED LIST changes: +IBUP200T45 PO
--- NOTE | 2021-01-20 13:31 | REP ---
INDICATION: PAIN COMPARISON: None. TECHNIQUE: PA and lateral. FINDINGS: The mediastinum and cardiac silhouette are normal. The lung gonzalez are clear and without acute consolidation, effusion, or pneumothorax. The skeletal structures are intact and normal. IMPRESSION: No acute cardiopulmonary process. <Electronically signed by Miguel Angel Rosales > 01/20/21 [id number]
--- NOTE | 2021-01-20 13:33 | REP ---
INDICATION: PAIN. COMPARISON: None. TECHNIQUE: Water's, Chavez, lateral and SMV views of the sinuses. FINDINGS: Sinuses appear well aerated and clear. No obvious mucosal thickening or fluid levels are identified. Surrounding osseous structures are intact. IMPRESSION: Normal sinus radiograph series. <Electronically signed by Miguel Angel Rosales > 01/20/21 [id number]
--- NOTE | 2021-01-20 13:38 | REP ---
INDICATION: PAIN COMPARISON: None. TECHNIQUE: AP, lateral, and swimmers views. FINDINGS: Evaluation of the T1-2 level is limited due to positioning and underpenetration of swimmer's view but no obvious abnormalities noted. Alignment and kyphosis is maintained. Visualized vertebral bodies intact. No acute fracture / compression injury or subluxation. No degenerative changes. Paravertebral soft tissues are normal. IMPRESSION: Essentially normal age-appropriate thoracic spine series. <Electronically signed by Miguel Angel Rosales > 01/20/21 [id number]
--- NOTE | 2021-01-20 13:39 | REP ---
INDICATION: PAIN COMPARISON: None. TECHNIQUE: AP, lateral, bilateral oblique views right and left hand. FINDINGS: The osseous structures and joint spaces are intact and essentially age-appropriate. There is no evidence for acute fracture or dislocation. No overt osteoarthritic or inflammatory arthritic changes are appreciated surrounding soft tissues are unremarkable. No subcutaneous emphysema or radiodense foreign body. IMPRESSION: Age-appropriate bilateral hand radiograph series. <Electronically signed by Miguel Angel Rosales > 01/20/21 [id number]
--- NOTE | 2021-01-20 13:41 | REP ---
INDICATION: PAIN COMPARISON: None. TECHNIQUE: AP, lateral, bilateral oblique views right and left foot. FINDINGS: The osseous structures and joint spaces are intact and essentially age-appropriate bilaterally. There is no evidence for acute fracture or dislocation. No overt osteoarthritic or inflammatory arthritic changes are appreciated. Surrounding soft tissues are unremarkable. No subcutaneous emphysema or radiodense foreign body. IMPRESSION: Age-appropriate bilateral foot radiograph series. <Electronically signed by Miguel Angel Rosales > 01/20/21 [id number]
== END ==
LOC: M PLAIMG 12:14
PROVIDERS: ATTEND Internal Medicine
DX: Z00.00 Encounter for general adult medical examination without abnormal findings (principal)

== ENCOUNTER 2021-02-13 06:39 | Emergency (ER) | payer OTHER ==
[~2021-02-13] VITALS: Ht 167.6 cm; Wt 61.4 kg
[2021-02-13] MEDS ORDERED: METH4PACK PO (07:15)
[2021-02-13] MEDS ORDERED: MELO15TA28 PO (07:15)
--- NOTE | 2021-02-13 08:09 | REPVR ---
PROCEDURE INFORMATION: Exam: CT Head Without Contrast Exam date and time: 02/13/2021 7:20 AM Age: 40 years old Clinical indication: Injury or trauma; Fall; Blunt trauma (contusions or hematomas) TECHNIQUE: Imaging protocol: Computed tomography of the head without contrast. Radiation optimization: All CT scans at this facility use at least one of these dose optimization techniques: automated exposure control; mA and/or kV adjustment per patient size (includes targeted exams where dose is matched to clinical indication); or iterative reconstruction. COMPARISON: CT Head without contrast 08/03/2020 6:55 AM FINDINGS: Brain: There is a similar benign-appearing ossific density in the left parietal lobe posteriorly. No intracranial hemorrhage or extraaxial collection is identified. There is no significant intracranial mass effect. Cerebral ventricles: The ventricles and sulci are stable in configuration. Paranasal sinuses: Visualized sinuses are unremarkable. No fluid levels. Mastoid air cells: Visualized mastoid air cells are well aerated. Bones/joints: Unremarkable. No acute fracture. Soft tissues: Unremarkable. IMPRESSION: No CT evidence for acute intracranial abnormality or significant change since 08/03/2020. Electronically signed by: Mega Tavares On 02/13/2021 08:09:06 AM
--- NOTE | 2021-02-13 08:14 | REPVR ---
PROCEDURE INFORMATION: Exam: CT Cervical Spine Without Contrast Exam date and time: 02/13/2021 7:20 AM Age: 40 years old Clinical indication: Injury or trauma; Fall; Blunt trauma TECHNIQUE: Imaging protocol: Computed tomography images of the cervical spine without contrast. Radiation optimization: All CT scans at this facility use at least one of these dose optimization techniques: automated exposure control; mA and/or kV adjustment per patient size (includes targeted exams where dose is matched to clinical indication); or iterative reconstruction. COMPARISON: None provided. FINDINGS: Tubes, catheters and devices: There are operative changes of fusion across C6-C7 with a metallic plate affixed to the anterior cortices with 2 screws at each level, and with an intervening disc spacer. There is some associated hardware artifact. Bones/joints: Alignment is maintained. No acute fracture is identified. Vertebral body heights are intact. Discs/Spinal canal/Neural foramina: There is multilevel spondylosis with variable osteophytic encroachment of several neural foramina. CT is not optimal for the evaluation of the discs, neural foramina or spinal canal or cord. No significant spinal stenosis is evident. Lungs: The visualized lung apices are clear. Pleural spaces: No apical pneumothorax is identified. Soft tissues: The prevertebral soft tissues are not significantly swollen. IMPRESSION: 1. No acute fracture or dislocation identified. 2. Postoperative changes and spondylosis without apparent spinal stenosis. The discs and integrity of the cord could be better evaluated by means of MRI as clinically appropriate. Electronically signed by: Mega Tavares On 02/13/2021 08:14:11 AM
[2021-02-13] MEDS ORDERED: KETOROLAC 30 MG/ML 1ML VIAL IM ONE (08:20)
--- NOTE | 2021-02-13 09:23 | REP ---
INDICATION: trauma. Thoracic spine. COMPARISON: Comparison images are from December 21, 2020.. TECHNIQUE: AP and lateral views of the thoracic and lumbar spine are provided. FINDINGS: Ventral discectomy and fusion plating is seen across the C6-7 disc level in the cervical spine as before. Thoracic vertebral body heights are preserved. Alignment is normal. Lumbar vertebral body heights are preserved. No paravertebral soft tissue mass or hematoma is seen. Pedicles and posterior elements are intact. There is an orthopedic anchor in 1 of the proximal humeri visible on lateral view. No fracture or collapse is seen. There is minimal platelike atelectasis in the right lower lobe of the lung. IMPRESSION: No traumatic abnormality noted. Minimal platelike atelectasis right lower lobe of the lung. <Electronically signed by Janak Del Castillo > 02/13/21 [id number]
--- NOTE | 2021-02-13 09:25 | REP ---
INDICATION: trauma. COMPARISON: MRI 08/29/2019 TECHNIQUE: Five views FINDINGS: Five views of the lumbosacral spine show no acute fracture, dislocation or subluxation. The intervertebral disc spaces are symmetric and well maintained. There is no spondylolysis or spondylolisthesis. The pedicles are intact bilaterally and there is no destructive osseous lesion. IMPRESSION: Unremarkable lumbosacral spine series. <Electronically signed by Luis Amos > 02/13/21 [id number]
[2021-02-13 11:07] VITALS: BP 112/79
== END 2021-02-13 10:58 | disposition home or self-care (01) ==
LOC: M ED 06:39
DX: S00.03XA Contusion of scalp, initial encounter (principal); S16.1XXA Strain of muscle, fascia and tendon at neck level, initial encounter; S29.012A Strain of muscle and tendon of back wall of thorax, initial encounter; S39.012A Strain of muscle, fascia and tendon of lower back, initial encounter; W10.9XXA Fall (on) (from) unspecified stairs and steps, initial encounter; Y92.009 Unspecified place in unspecified non-institutional (private) residence as the place of occurrence of the external cause; Y93.89 Activity, other specified; Y99.8 Other external cause status; Z79.899 Other long term (current) drug therapy; Z87.820 Personal history of traumatic brain injury
CPT/HCPCS: 70450; 72072; 72110; 72125; 96372; 99284; J1885